=== PATIENT | male | born 1970 | race Caucasian/White ===

== ENCOUNTER 2020-11-25 17:59 | Emergency (ER) | payer OTHER, SELFPAY ==
--- NOTE | ~2020-11-25 | XR_ITS ---
EXAMINATION: XR chest 1V portable INDICATION: Shortness of breath and congestion, loss of taste and smell TECHNIQUE: Portable AP chest at 1949 hours COMPARISON: None available FINDINGS: There are patchy opacities throughout all lung zones, worst in the right mid and lower lung zones. There is no pleural effusion or pneumothorax. The cardiomediastinal silhouette is normal. The re is mild osteoarthritis of the left glenohumeral joint. IMPRESSION: 1. Patchy bilateral airspace opacities, consistent with COVID 19 pneumonia. Reviewed, dictated and finalized at location A.
[2020-11-25 18:01] VITALS: BP 189/85; PULSE 107; RESP 20; TEMP 36.3; O2SAT 97
[2020-11-25 19:34] VITALS: BP 125/89; PULSE 108; RESP 18; TEMP 36.7; O2SAT 99
--- NOTE | 2020-11-25 19:48 | ED.URI ---
HPI - URI/Sore Throat General Chief Complaint: Upper Respiratory Infection Stated Complaint: chest congestion/lack of energy/chills Time Seen by Provider: 11/25/20 19:34 Source: RN notes reviewed History of Present Illness HPI Narrative: Patient presents to emergency department from home for upper respiratory infection. Patient states symptoms began 2 days ago states he has been having a cough this been productive of green sputum as well as rhinorrhea and generalized fatigue patient states he also lost his sense of smell and taste yesterday. Patient's tested positive for Covid 2 days ago patient denies any known fevers chest pain shortness of breath abdominal pain vomiting or diarrhea. He does note occasional nausea Related Data Allergies Allergy/AdvReac Type Severity Reaction Status Date / Time NFA Allergy Unknown Uncoded 02/09/03 14:55 NKA Allergy Unknown Uncoded 02/09/03 14:55 Review of Systems Review of Systems: Narrative: Gen.: Denies fevers or chills Eyes: Denies eye pain or visual change ENT: See HPI Respiratory: Denies shortness of breath reports cough CV: Denies chest pain or palpitations GI: Denies abdominal pain nausea, emesis or diarrhea Musculoskeletal: Denies back pain or muscle pain Neuro: Denies headache, reports fatigue Skin: Denies rash Except as documented, all other systems reviewed and negative PMFSH Past Medical History Medical History (Updated 11/25/20 @ 20:14 by Mal Valenzuela DO) Diabetes mellitus Hypertension Social History Social History (Updated 11/25/20 @ 19:49 by Mal Valenzuela DO) Smoking status: Former smoker Gender identity (if verbalized by the patient): Male Exam Narrative: Exam Narrative: APPEARANCE: No acute distress, nontoxic, resting in bed EYES: EOMI HEENT: Normocephalic, atraumatic, OMM RESPIRATORY: No respiratory distress Clear to auscultation bilaterally with no rhonchi wheezing or rales. CARDIOVASCULAR: Regular rate and rhythm without murmurs rubs or gallops. ABDOMINAL: Soft, nontender, nondistended, no rebound or guarding MUSCULOSKELETAl: Moves all extremities. No clubbing, cyanosis or edema. NEURO: Awake and alert x 4. Following commands, speech normal, no focal deficits SKIN:: Warm, dry. No rashes lesions or abrasions PSYCHIATRIC: Normal affect/mood, Course Course Emergency Course: Discussed with patient results of workup and diagnosis. Discussed need for follow-up with primary care, proper use of medication, and reasons to return to the emergency department. Patient understands and agrees to current treatment plan Vital Signs Vital signs: Vital Signs Temperature 97.4 F L 11/25/20 18:01 Pulse Rate 107 H 11/25/20 18:01 Respiratory Rate 20 11/25/20 18:01 Blood Pressure 189/85 H 11/25/20 18:01 Pulse Oximetry 97 11/25/20 18:01 Temperature 98.1 F 11/25/20 19:34 Pulse Rate 108 H 11/25/20 19:34 Respiratory Rate 18 11/25/20 19:34 Blood Pressure 125/89 11/25/20 19:34 Pulse Oximetry 99 11/25/20 19:34 MDM - URI/Sore Throat MDM Narrative Medical decision making narrative: Patient presents with symptoms consistent with Covid with loss of taste and smell cough. tested +2 days ago. Patient hemodynamically stable oxygen levels 9799% on vital signs on room air patient given albuterol inhaler in ED showed to use will obtain Covid swab and discharge Imaging Data Radiologist's impression: ITS Impressions Chest X-Ray 11/25/20 19:58 IMPRESSION: 1. Patchy bilateral airspace opacities, consistent with COVID 19 pneumonia. Discharge Plan Discharge Clinical Impression: Suspected COVID-19 virus infection Patient Disposition: Home, Self-Care Condition: Stable Instructions: Antibiotic Form, COVID-19 (Coronavirus Disease 2019) (ED) Additional Instructions: Return for increasing shortness of breath worsening fevers vomiting or any other symptoms of concern Prescriptions: New albuterol
[2020-11-25] MEDS: ALBUTEROL SULFATE (*SP) AEROSOL 1 PUFF 2 PUFF INHALATION (19:58)
[2020-11-25] MEDS: ACETAMINOPHEN 500 MG TABLET 1000 MG PO (20:31)
[2020-11-26 11:54] LABS: SARS-CoV-2 RNA PCR Positive
== END 2020-11-25 20:32 | disposition home or self-care (01) ==
PROVIDERS: Emergency Provider Emergency Medicine; PCP Internal Medicine
DX: U07.1 COVID-19 (principal); E11.9 Type 2 diabetes mellitus without complications; I10 Essential (primary) hypertension; R91.8 Other nonspecific abnormal finding of lung field
CPT/HCPCS: 71045; 94640; 99283; A9270; C9803; U0003; U0005

== ENCOUNTER 2022-10-23 13:49 | Outpatient (CLI) | payer OTHER, SELFPAY ==
--- NOTE | ~2022-10-23 | XR_ITS ---
XR chest 2V DATE: 10/23/2022 14:12 INDICATION: Follow-up after surgery for lung cancer TECHNIQUE: PA and lateral views COMPARISON: November 25, 2020 portable AP chest FINDINGS: There is loss of the right cardiac margin due to prominent opacity at the right cardiophren ic area on the PA view, which may be due to middle lobe atelectasis or consolidation versus postopera tive change. CT thorax may be helpful for more definitive evaluation. There is mild blunting of the right costophrenic angle and mild right pleural thickening. There is mild infiltrate or atelectasis in the right lower lung. The left lung appears clear. Normal heart size. No pulmonary vascular congestion, left pleural effusion or left or right pneumotho rax. IMPRESSION: Middle lobe atelectasis and/or consolidation versus postoperative change Mild blunting of right costophrenic angle Mild right lower lung infiltrate and/atelectasis Reviewed, dictated and finalized at location L. MORSE INTERCEPT TECHNICIAN IMPRESSION: Middle lobe atelectasis and/or consolidation versus postoperative c hange Mild blunting of right costophrenic angle Mild right lower lung infiltrate and/atelectasis
== END 2022-10-23 13:50 | disposition home or self-care (01) ==
LOC: ANHIMG 13:55
PROVIDERS: PCP Internal Medicine
DX: J93.9 Pneumothorax, unspecified (principal); J98.11 Atelectasis; R91.8 Other nonspecific abnormal finding of lung field
CPT/HCPCS: 71046

== ENCOUNTER 2022-11-19 10:04 | Outpatient (CLI) | payer OTHER, SELFPAY ==
--- NOTE | ~2022-11-19 | CT_ITS ---
EXAMINATION: CT diagnostic chest w con DATE: 11/19/2022 10:31 INDICATION: Non-small cell lung cancer TECHNIQUE: Transaxial computed tomographic images of the chest were obtained after the administration of 75 cc of Omnipaque 350 intravenous contrast. The dose-length product (DLP) was 532.76 mGy-cm. Ite rative reconstruction was used. COMPARISON: None FINDINGS: There are changes of partial pneumonectomy in the right lung. There is a small to moderate- sized right pleural effusion which causes mild passive atelectasis. There is moderate emphysema. Calc ified pulmonary nodules and calcified right hilar lymph nodes are consistent with old granulomatous d isease. A right paratracheal lymph node measures up to 12 mm in short axis. The heart size is normal. There is moderate thoracic spondylosis. IMPRESSION: 1. Changes of right partial pneumonectomy. 2. Small to moderate size right pleural effusion with minimal associated passive atelectasis. 3. Mildly enlarged right paratracheal lymph node, reactive versus metastatic. Recommend comparison wi th any prior imaging. Consider PET/CT. Reviewed, dictated and finalized at location B. IMPRESSION: 1. Changes of right partial pneumonectomy. 2. Small to moderate size right pleural effusion with minimal associated passiv e atelectasis. 3. Mildly enlarged right paratracheal lymph node, reactive versus metastatic. R ecommend comparison with any prior imaging. Consider PET/CT.
[2022-11-19 10:27] LABS: Estimated Glomerular Filt Rate > 60
== END 2022-11-19 10:05 | disposition home or self-care (01) ==
LOC: ANHIMG 10:06
PROVIDERS: PCP Internal Medicine
DX: C34.31 Malignant neoplasm of lower lobe, right bronchus or lung (principal); J90 Pleural effusion, not elsewhere classified
CPT/HCPCS: 71260; Q9967

== ENCOUNTER 2023-09-03 08:55 | Outpatient (CLI) | payer OTHER, SELFPAY ==
--- NOTE | ~2023-09-03 | PE_ITS ---
EXAMINATION: PET skull to mid thigh DATE: 09/03/2023 11:35 INDICATION: Malignant neoplasm of lower right lung. TECHNIQUE: Blood glucose level was 156 mg/dL. 9.117 mCi of 18-fluorodeoxyglucose (18-FDG) was adminis tered i.v. Low dose computed tomography (CT) images were acquired from the base of the brain to the p roximal thighs for attenuation correction and anatomic localization. Automated exposure control was e mployed. Dose-length product (DLP) was 1279 mGy-cm. Positron emission tomography (PET) images were ac quired in the same distribution. COMPARISON: Chest CT 11/19/2022 FINDINGS: Head/neck: There are likely changes of ocular lens replacement surgeries. There is mucosal thickening in the paranasal sinuses. There is complete opacification of right maxillary sinus. The mastoid air cells are normal. There are no pathologically enlarged lymph nodes. Chest: There are changes of right lower lobectomy. A calcified right lung nodule and calcified right hilar lymph nodes are consistent with old granulomatous disease. There is mild atelectasis bilaterall y. There is a small right pleural effusion. The heart size is normal. There are coronary artery calci fications. No pericardial effusion. There are no pathologically enlarged lymph nodes. Abdomen/pelvis/proximal thighs: The liver, gallbladder, spleen, pancreas, adrenal glands, and kidneys are normal. Aortic atherosclerosis is noted. There are bilateral inguinal hernias containing fat. Th e prostate is mildly enlarged. There are no dilated loops of bowel. There are no pathologically enlar ged lymph nodes. There is no free intraperitoneal fluid. There is a supraumbilical ventral hernia con taining fat. There is no osseous malignancy. IMPRESSION: 1. No evidence of metastatic disease. 2. Small right pleural effusion with improvement from 11/19/2022. Reviewed, dictated and finalized at location E. PROOF DOOR MAKER
[2023-09-03 09:25] LABS: Glucose Point of Care 156 mg/dl (65-105)
== END 2023-09-03 08:56 | disposition home or self-care (01) ==
LOC: ANHIMG 09:00
PROVIDERS: PCP Internal Medicine; Visit Provider Internal Medicine Hematology & Oncology
DX: C34.31 Malignant neoplasm of lower lobe, right bronchus or lung (principal); J90 Pleural effusion, not elsewhere classified
CPT/HCPCS: 78815; A9552

== ENCOUNTER 2023-09-17 11:07 | Outpatient (CLI) | payer OTHER, SELFPAY ==
[2023-09-17 11:24] LABS: Basophils Absolute Auto 0.1 K/mm3 (0.0-0.1); Basophils Percent Auto 0.7 % (0.2-1.2); Eosinophils Absolute Auto 0.2 K/mm3 (0-0.3); Eosinophils Percent Auto 2.5 % (0-4.4); Hemoglobin 14.9 g/dL (14.0-18.0); Immature Granulocyte Absolute 0.02 K/mm3 (0.00-0.031); Immature Granulocyte Percent A 0.3 % (0-0.5); Mean Corpuscular HGB Conc 32.4 g/dl (32-36); Mean Corpuscular Hemoglobin 27.9 pg (26-34); Mean Corpuscular Volume 86.1 fl (80-100); Mean Platelet Volume 7.8 fl (7.4-10.4); Monocytes Absolute Auto 0.7 K/mm3 (0.1-0.6); Monocytes Percent Auto 9.1 % (2.6-8.5); Neutrophils Absolute Auto 4.7 K/mm3 (1.3-6.7); Neutrophils Percent Auto 61.4 % (45.5-73.1); Platelet Count Result 182 k/mm3 (150-375); Red Blood Count 5.34 M/mm3 (4.6-6.20); Red Cell Distribution Width 14.7 % (11.5-14.5); White Blood Count 7.7 K/mm3 (4.5-10.0)
[2023-09-17 11:28] LABS: Blood Urea Nitrogen 30 mg/dL (8-26); Carbon Dioxide 29 mmol/L (22-30); Chloride 103 mmol/L (98-109); Estimated Glomerular Filt Rate 53; Glucose 186 mg/dL (70-105); Potassium 4.2 mmol/L (3.5-4.9); Sodium 140 mmol/L (138-146)
== END 2023-09-17 11:08 | disposition home or self-care (01) ==
LOC: ANHLAB 11:09
PROVIDERS: PCP Internal Medicine; Visit Provider Internal Medicine Hematology & Oncology
DX: C34.31 Malignant neoplasm of lower lobe, right bronchus or lung (principal)
CPT/HCPCS: 36415; 80047; 85025

== ENCOUNTER 2025-03-04 11:16 | Emergency (ER) | payer BC, SELFPAY ==
--- NOTE | ~2025-03-04 | CT_ITS ---
CTA chest PE protocol Ordering provider: Jasmin Miller PA-C History: 54 years Male with . cough x2mo, hemoptysis, sob . Comparison: December 16, 2022 Technique: CT angiogram chest was performed following timed intravenous injection of contrast. Thin s lice axial images and reformatted coronal images were obtained. Three dimensional reformatted images of the chest were also obtained using a [employer] workstation. . Automated exposure control and iterati ve reconstruction technique were employed. The dose-length product was 591.10 mGy-cm. 100 mL Omnipaqu e 350 was given IV. Findings: PULMONARY ARTERIES: No pulmonary embolus. VISUALIZED THORACIC INLET: Normal. MEDIASTINUM: Aorta/coronary arteries: Mild atheromatous disease. Heart/other: The heart is not enlarged. Lymph nodes: Paratracheal lymph node is seen measuring 1.6 cm. Precarinal lymph node is seen measurin g 1.5 cm. Right hilar lymphadenopathy is noted measuring 3.1 cm with calcifications. Narrowing of the right shannon n bronchus and bronchus of the right lower lobe is noted. A mass is seen in the right infrahilar area which measures 3.3 cm seen. Subcarinal mass is also seen suggestive of lymphadenopathy measuring 4.3 x 3.2 cm with no differentiation from the esophageal wall seen. Minimal dilatation of the upper esophagus is noted. Further evaluation advised.. Small lymph n ode is seen in the left hilum. LUNGS: No pulmonary nodules or masses. No infiltrates or effusions. No pneumothorax. Pleural calcification s een in the right lower lobe area laterally. Pleural thickening is seen in the right lower lobe area. VISUALIZED UPPER ABDOMEN: Sliding hiatus hernia. Otherwise, the visualized upper abdomen is normal. MUSCULOSKELETAL: Soft tissues: The superficial soft tissues are normal. Bones: Age appropriate degenerative changes of the spine. IMPRESSION: 1. A mass is seen in the right hilar and infrahilar areas with extension to the subcarinal area whic h may be lymphadenopathy with adjacent mass in the right lower lobe medially. Further evaluation advi sed. Calcification in the right perihilar area is seen. The subcarinal mass is compressing the esopha sergio with slight dilatation superiorly. Further evaluation advised. 2. No pulmonary embolism. 3. No acute lung lesion seen. Reviewed, dictated and finalized at location A. IMPRESSION: 1. A mass is seen in the right hilar and infrahilar areas with extension to th e subcarinal area which may be lymphadenopathy with adjacent mass in the right lower lobe medially. Further evaluation advised. Calcification in the right per ihilar area is seen. The subcarinal mass is compressing the esophagus with slig ht dilatation superiorly. Further evaluation advised. 2. No pulmonary embolism. 3. No acute lung lesion seen.
[2025-03-04 11:20] VITALS: BP 154/85; PULSE 87; RESP 18; TEMP 36.6; O2SAT 98
--- OUTSIDE RECORDS SUMMARY | 2025-03-04 11:28 | XMS_ITS ---
Author Organization [facility] Address [address] [place] [address] Care Team Providers Care Chronometer Assembler Name Role Phone Magda Chan MD Primary Care Provide r Urile Black MD Unavailable [phone] Active Problems Problem Noted Date Diagnosed Date Non-small cell cancer of right lung 2022 Cancer Staging:Clinical stage from 2022:Stage IIB(cT3, cN0, cM0) - Signed by Uriel Black MD on 2022 Lung mass 06/22/2022 Current Treatment and Therapy Plans No current plan information found. Past Treatment and Therapy Plans No past plan information found. Lifetime Dose Tracking * Chemical Lifetime Dose Automatic Entry Manual Entr y DLP 646 mGycm 646 mGycm 0 mGycm
--- OUTSIDE RECORDS SUMMARY | 2025-03-04 11:28 | XMS_ITS | Clinical Summary ---
Author Organization [facility] Address [address] [place] [address] Care Team Providers Care Appeals Court Associate Justice Name Role Phone Magda Chan MD Primary Care Provide r Uriel Black MD Unavailable [phone] Allergies No known active allergies Medications gabapentin (NEURONTIN) 600 mg tablet gabapentin 600 mg tablet 0 Active lisinopriL (PRINIVIL,ZESTR IL) 20 mg tablet lisinopril 20 mg tablet 0 Active semaglutide (Ozempic) 0.25 mg or 0.5 mg(2 mg/1.5 mL) pen injector injection Inject 0.5 mg under the skin once a week Active dapagliflozin (FARXIGA) 10 mg tablet Take 1 tablet (10 mg total) by mouth daily Active insulin degludec (TRESIBA) 200 unit/mL (3 mL) pen for injection daily Active metFORMIN XR (GLUCOPHAGE XR) 500 mg 24 hr tablet 2 Active cetirizine (ZyrTEC) 10 mg tablet Take 1 tablet every day by oral route as needed for 90 days. 4 Active Diflucan 150 mg tablet Take 1 tablet every week by oral route. 5 Active fluticasone propion-salmete roL (Advair Diskus) 500-50 mcg/dose diskus inhaler 2 Active fluticasone propionate (FLONASE) 50 mcg/actuation nasal spray Beatty 2 sprays every day by intranasal route for 90 days. 4 Active fluticasone-ume clidin-vilanter (TRELEGY ELLIPTA) 100-62.5-25 mcg inhaler Inhale 1 puff every day by inhalation route as directed for 30 days. 3 Active zolpidem (AMBIEN) 10 mg tablet Take 1 tablet every day by oral route for 30 days. Active linaCLOtide (Linzess) 290 mcg capsule Take 1 capsule every day by oral route for 30 days. Active Active Problems Problem Noted Date Diagnosed Date Non-small cell cancer of right lung 2022 Cancer Staging:Clinical stage from 2022:Stage IIB(cT3, cN0, cM0) - Signed by Uriel Black MD on 2022 Lung mass 06/22/2022 Surgical History Surgery Date Site/Laterality Comments ULNAR NERVE REPAIR KNEE ARTHROSCOPY Left SHOULDER SURGERY Fixation EYE SURGERY CATARACT EXTRACTION 08/19/2016 - 08/18/2017 Bilateral LUNG REMOVAL, PARTIAL 10/20/2020 patient states Medical History Medical History Date Comments Diabetes (HCC) Obesity Depressive disorder Insomnia Neuropathy Hypertension Asthma Abdominal hernia Sleep apnea ZHU (dyspnea on exertion) Anxiety Migraines COPD (chronic obstructive pulmonary disease) (HC C) Non-small cell cancer of right lung (HCC) 023 Family History Medical History Relation Name Comments Breast cancer Father Lung cancer Father myocardial disease Father Breast cancer Mother Diabetes Mother Diabetes mellitus Mother Heart disease Mother disorder of lung Mother Diabetes Sister Relation Name Status Comments Father Mother Sister Social History Tobacco Use Types Packs/Day Years Used Date Smoking Tobacco: Former Cigarettes 2 32 1 988 - 2019 Smokeless Tobacco: Current Tobacco Cessation:Ready to Q uit: Not Asked; Counseling Given: Not Answered Comments:Niotine on demand AUDIT-C Answer Date Recorded Q1: How often do you have a drink containing alc ohol? Monthly or less 07/24/2022 Q2: How many drinks containi ng alcohol do you have on a typical day when you are drinking? 5 or 6 07/24/2022 Q3: How often do you have si x or more drinks on one occasion? Monthly 07/24/2022 Sex and Gender Information Value Date Recorded Sex Assigned at Not on file Legal Sex Male 11:08 AM MONITORING MANAGER Gender Identity Not on file Sexual Orientation Not on file Obstetrics History Last Filed Vital Signs Vital Sign Reading Time Taken Comments Blood Pressure 122/58 09/22/2024 3:25 PM MONITORING MANAGER Pulse 103 09/22/2024 3:25 PM MONITORING MANAGER Temperature 36.7 C (98.1 F) 08/06/2022 11:23 AM MONITORING MANAGER Respiratory Rate 18 08/06/2022 11:23 AM MONITORING MANAGER Oxygen Saturation 96% 08/06/2022 11:23 AM MONITORING MANAGER Inhaled Oxygen Concentration - - Weight 95.3 kg (210 lb) 09/22/2024 3:25 PM MONITORING MANAGER Height 172.7 cm (5' 8) 08/06/2022 11:23 AM MONITORING MANAGER Body Mass Index 31.93 08/06/2022 11:23 AM MONITORING MANAGER Plan of Treatment Health Maintenance Due Date Last Done Comments Colon Cancer Screening-Colonoscopy 1971 Depression Screening 1971 Hepatitis C Screening 1971 Prostate Cancer Screening-PSA 1971 DTaP/Tdap/Td Vaccine (1 - Tdap) 1982 Hepatitis B Screening 1989 Regular Well Visit/Exam 18-64 1989 Pneumococcal vaccine <65 (1 of 2 - PCV) 1990 Zoster Vaccine (2 of 2) 10/17/2023 08/22/2023 Covid-19 Vaccine (3 - 2023-2 5 season) 2024 05/26/2021, 05/05/2021 Influenza Vaccine (Season Ended) 2025 08/06/2023, 06/12/2022, 06/13/2021, Additional history exists Insurance [facility] H[facility]PPO Address: [address] [address] [place] [address] BLUE ACCESS OOS Care Teams Appeals Court Associate Justice Relationship Specialty Start Date End Date Magda Chan MD [address] [place] [address] PCP - General Internal Medicine 06/13/22 Uriel Black MD [address] [place] [address] Radiation Oncologist Radiation Oncology 09/13/22
--- OUTSIDE RECORDS SUMMARY | 2025-03-04 11:28 | XMS_ITS | Clinical Summary ---
Author Organization [facility] Jerson Martinez Address [address] [place] [address] Care Team Providers Care Morgue Keeper Name Role Phone Charlette Chan MD Primary Care Provider Allergies No known active allergies Medications albuterol sulfate HFA 90 mcg/actuation aerosol inhaler 1 time daily as needed. 08/28/2022 Active amitriptyline (ELAVIL) 10 mg tablet 06/27/2022 Active amLODIPine (NORVASC) 5 mg tablet 06/27/2022 Active Farxiga 10 mg Tablet 07/17/2022 Active Advair Diskus 500-50 mcg/dose disk inhaler 06/27/2022 Active Trelegy Ellipta 100-62.5-25 mcg Disk with Device 08/28/2022 Active gabapentin (NEURONTIN) 600 mg tablet 3 times daily. 08/28/2022 Active lisinopriL (PRINIVIL) 20 mg tablet 2 times daily. 07/27/2022 Active metFORMIN (GLUCOPHAGE XR) 500 mg Extended Release 24 hour tablet 2 times daily with meals. 07/17/2022 Active Ozempic 0.25 mg or 0.5 mg(2 mg/1.5 mL) Pen Injector every 7 days. Saturday08/14/2022 Active insulin degludec (TRESIBA) 200 unit/mL pen syringe 44 Units daily at bedtime. Active glimepiride (AMARYL) 2 mg tablet 2 times daily with meals. Below BS 117, only take one tablet 07/17/2022 Active Active Problems Problem Noted Date Diagnosed Date Benign hypertension 09/12/2022 Cancer of lower lobe of right lung 09/12/2022 Type 2 diabetes mellitus wit hout complication, with long-term current use of insulin 09/12/2022 Encounters Date Type Department Care Team Description 03/02/2025 External Device Data [facility] ABSTRACTION Provider, Abstract 02/02/2025 External Device Data [facility] ABSTRACTION Provider, Abstract 01/07/2025 External Device Data [facility] ABSTRACTION Provider, Abstract 01/05/2025 External Device Data [facility] ABSTRACTION Provider, Abstract from Last 3 Months Family History Medical History Relation Name Comments Diabetes Father Heart Disease Father Lung Cancer Father Diabetes Mother Heart Disease Mother Diabetes Sister Diabetes Son Relation Name Status Comments Father Mother Sister Alive Son Alive Social History Tobacco Use Types Packs/Day Years Used Date Smoking Tobacco: Former Cigarettes 2 30 0 08/19/1991 - 08/19/2021 Smokeless Tobacco: Never Tobacco Cessation:Counseling Given: Not Answered Alcohol Use Standard Drinks/Week Comments Yes 0 (1 standard drink = 0.6 oz pur e alcohol) socially - few times a year Sex and Gender Information Value Date Recorded Sex Assigned at Not on file Legal Sex Male 8:18 AM AGRICULTURAL EQUIPMENT SALES ENGINEER Gender Identity Not on file Sexual Orientation Not on file Last Filed Vital Signs Vital Sign Reading Time Taken Comments Blood Pressure 129/74 09/17/2023 11:28 AM AGRICULTURAL EQUIPMENT SALES ENGINEER Pulse 92 09/17/2023 11:28 AM AGRICULTURAL EQUIPMENT SALES ENGINEER Temperature 36.2 C (97.1 F) 09/17/2023 11:28 AM AGRICULTURAL EQUIPMENT SALES ENGINEER Respiratory Rate 12 09/17/2023 11:28 AM AGRICULTURAL EQUIPMENT SALES ENGINEER Oxygen Saturation 95% 09/17/2023 11:28 AM AGRICULTURAL EQUIPMENT SALES ENGINEER Inhaled Oxygen Concentration - - Weight 110.7 kg (244 lb) 09/17/2023 11:28 AM AGRICULTURAL EQUIPMENT SALES ENGINEER Height 177.8 cm (5' 10) 11/21/2022 10:27 AM CDT Body Mass Index 35.01 11/21/2022 10:27 AM CDT Plan of Treatment Health Maintenance Due Date Last Done Comments DIABETES ANNUAL FOOT EXAM 1989 DIABETES ANNUAL RETINAL EXAM 1989 DIABETES MICROALBUMIN ANNUAL SCREEN 1989 LDL CHOLESTEROL ANNUAL 1989 DTAP/TDAP/TD VACCINES (1 - Tdap) 1990 HEPATITIS B VACCINES (1 of 3 - 19+ 3-dose series) 1990 COLORECTAL SCREENING 2016 Colorectal Cancer Screening 2016 FIT-DNA Q 3 years 2016 FIT/FOBT Q 1 year 2016 Flex Sig/CT Colonography Q 5 years 2016 ZOSTER VACCINE (1 of 2) 2021 DIABETES HBA1C Q 6 MONTHS 03/31/2023 10/01/2022 INFLUENZA VACCINE (#1) 2025 3, 06/12/2022, 06/13/2021, Additional history exists Medical Devices Implanted Type Area Die Turner Device Identifier Shelf Expiration Date Model / Serial / Lot Clip Hemolok Ml [id number] - Csc - [id number] Implanted:Qty : 1 on 10/18/2022 by Winston Villalpando MD at [facility] Clip Right: Lung TELEFLEX- WECK CLOSURE SYS 06/18/2026 [id number] / / [id number] Sealant Progel Pleural 4ml [id number] - [id number] Implanted:Qty : 1 on 10/18/2022 by Winston Villalpando MD at [facility] Tissue Right: Lung BARD DAVOL [id number] 12/04/2023 [id number] / / [id number] Procedures Procedure Name Priority Date/Time Associated Diagnosis Comments HEMOGLOBIN A1C Routine 10/01/2022 12:33 PM AGRICULTURAL EQUIPMENT SALES ENGINEER Benign hypertension Cancer of lower lobe of right lung (CMS/HCC) Type 2 diabetes mellitus without complication, with long-term current use of insulin (CMS/HCC) from Last 3 Months or Most Recently Relevant to Health Maintenance Results * (ABNORMAL) HEMOGLOBIN A1C (10/01/2022 12:33 PM AGRICULTURAL EQUIPMENT SALES ENGINEER) HEMOGLOBIN A1C 6.8(H) <5.7 % 10/01/2022 2:13 PM [facility] EST. AVG GLUCOSE, A1C 148 mg/dL 10/01/2022 2:13 PM [facility] Blood Venipuncture / Unknown 10/01/2022 12:33 PM AGRICULTURAL EQUIPMENT SALES ENGINEER 10/01/2022 1:45 PM AGRICULTURAL EQUIPMENT SALES ENGINEER Narrative [facility] - 10/01/2022 2:13 PM AGRICULTURAL EQUIPMENT SALES ENGINEER HGB A1C INTERPRETATION NORMAL: <5.7% PRE-DIABETES: 5.7 - 6.4% DIABETES: 6.5% OR GREATER Winston Villalpando MD CHEMISTRY ORDERABLES Final Res ult [facility]# [id number] [address] [place] [address] from Last 3 Months or Most Recently Relevant to Health Maintenance Insurance RX [employer] Member Subscriber Plan / Payer (Ef fective for All Dates) Name:Anthony Bonilla Relation to Subscriber:Self Name:Anthony Bonilla Subscriber ID:Not on file Payer ID:Not on file Group ID:[id number] Type:RX Commercial Address: [address] Advance Directives For more information, please contact: [phone] * Full Code (Latest Code Status on File) Date Activated Date Inactivated Comments 10/18/2022 5:47 PM 10/21/2022 7:26 PM * Full Code Date Activated Date Inactivated Comments 10/18/2022 5:47 AM 10/18/2022 5:47 PM Care Teams Morgue Keeper Relationship Specialty Start Date End Date Charlette Chan MD PCP - General Internal Medicine 08/28/22
--- OUTSIDE RECORDS SUMMARY | 2025-03-04 11:28 | XMS_ITS | Encounter Summary ---
Author Organization [facility] Address [address] [place] [address] Care Team Providers Care Sales Ambassador Name Role Phone Charlette Chan MD Primary Care Provider Encounter Details Date Type Department Care Team (Late st Contact Info) Description 03/02/2025 External Device Data [facility] ABSTRACTION Provider, Abstract NO ADDRESS ON FILE Social History Tobacco Use Types Packs/Day Years Used Date Smoking Tobacco: Former Cigarettes 2 30 0 08/19/1991 - 08/19/2021 Smokeless Tobacco: Never Alcohol Use Standard Drinks/Week Comments Yes 0 (1 standard drink = 0.6 oz pur e alcohol) socially - few times a year Sex and Gender Information Value Date Recorded Sex Assigned at Not on file Legal Sex Male 8:18 AM WEB MARKETING MANAGER Gender Identity Not on file Sexual Orientation Not on file documented as of this encounter Plan of Treatment Not on file documented as of this encounter Visit Diagnoses Not on filedocumented in this encounter Care Teams Sales Ambassador Relationship Specialty Start Date End Date Charlette Chan MD PCP - General Internal Medicine 08/28/22 documented as of this encounter
--- OUTSIDE RECORDS SUMMARY | 2025-03-04 11:28 | XMS_ITS | Referral Summary ---
Author Organization [facility] Address [address] [place] [address] Care Team Providers Care Outsole Skiver Name Role Phone Magda Chan MD Primary Care Provide r Uriel Black MD Unavailable [phone] Allergies No known active allergies Medications [...] fluticasone propionate (FLONASE) 50 mcg/actuation nasal spray Brooks 2 sprays every day by intranasal route [...] Black MD on 2022 Lung mass 06/22/2022 Social History Tobacco Use Types Packs/Day Years Used Date Smoking Tobacco: Former Cigarettes 2 32 1 8 - 2019 Smokeless Tobacco: Current Tobacco Cessation:Ready [...] on file Legal Sex Male 11:08 AM FIRE EXTINGUISHER TECHNICIAN Gender Identity Not on file Sexual Orientation Not on file Last Filed Vital Signs Vital Sign Reading Time Taken Comments Blood Pressure 122/58 09/22/2024 3:25 PM FIRE EXTINGUISHER TECHNICIAN Pulse 103 09/22/2024 3:25 PM FIRE EXTINGUISHER TECHNICIAN Temperature 36.7 C (98.1 F) 08/06/2022 11:23 AM FIRE EXTINGUISHER TECHNICIAN Respiratory Rate 18 08/06/2022 11:23 AM FIRE EXTINGUISHER TECHNICIAN Oxygen Saturation 96% 08/06/2022 11:23 AM FIRE EXTINGUISHER TECHNICIAN Inhaled Oxygen Concentration - - Weight 95.3 kg (210 lb) 09/22/2024 3:25 PM FIRE EXTINGUISHER TECHNICIAN Height 172.7 cm (5' 8) 08/06/2022 11:23 AM FIRE EXTINGUISHER TECHNICIAN Body Mass Index 31.93 08/06/2022 11:23 AM FIRE EXTINGUISHER TECHNICIAN Plan of Treatment Not on file Insurance [id number] [place] [address] CHOICE PLUS BLUE ACCESS OOS Care Teams Outsole Skiver Relationship Specialty Start Date End Date Magda Chan MD [address] [phone] (Work) PCP - General Internal Medicine 06/13/22 Uriel Black MD [address] [address] Radiation Oncologist Radiation Oncology 09/13/22
--- OUTSIDE RECORDS SUMMARY | 2025-03-04 11:39 | XMS_ITS | Clinical Summary ---
Author Organization [facility] Address [address] [place] [address] Care Team Providers Care Grinder Set Up Operator Jig Name Role Phone Unavailable Primary Care Provider Unavailabl e Social History Tobacco Use Types Packs/Day Years Used Date Smoking Tobacco: Never Assessed Sex and Gender Information Value Date Recorded Sex Assigned at Not on file Legal Sex Male 7:54 PM CDT Gender Identity Not on file Sexual Orientation Not on file Plan of Treatment Health Maintenance Due Date Last Done Comments Colorectal Cancer Screening Colonoscopy (10 Years) 1971 Annual Physical 1974 Hepatitis C 1989 DTaP, Tdap and Td Vaccines ( 1 - Tdap) 1990 Hepatitis B Vaccines (1 of 3 - 19+ 3-dose series) 1990 Pneumococcal Vaccine: 50+ Ye ars (1 of 1 - PCV) 2021 Zoster Vaccines (1 of 2) 2021 COVID-19 Vaccine ( - 2023-2 5 season) 2024 Meningococcal B Vaccine Aged Out No l onger eligible based on patient's age to complete this topic Meningococcal Vaccine Aged Out No wisam case eligible based on patient's age to complete this topic RSV Immunizations Under 20 Months Aged Out No longer eligible based on patient's age to complete this topic
[2025-03-04 12:08] VITALS: O2SAT 98
[2025-03-04 12:13] LABS: Hematocrit 42.5 % (42.0-52.0); Hemoglobin 13.9 g/dL (14.0-18.0); Immature Granulocyte Percent A 0.1 % (0-0.5); Lymphocytes Absolute Auto 1.91 K/mm3 (0.9-3.2); Mean Corpuscular HGB Conc 32.7 g/dl (32-36); Mean Corpuscular Hemoglobin 28.1 pg (26-34); Mean Corpuscular Volume 85.9 fl (80-100); Nucleated Red Blood Cells Absolute Auto 0.000 K/mm3 (0.0-0.012); Nucleated Red Blood Cells Perc 0.0 % (0.0-0.2); Platelet Count Result 181 k/mm3 (150-375); Red Blood Count 4.95 M/mm3 (4.6-6.20); White Blood Count 9.5 K/mm3 (4.5-10.0)
[2025-03-04 12:16] VITALS: BP 126/69; PULSE 79; RESP 20; O2SAT 93
[2025-03-04 12:23] LABS: INR 1.0; Prothrombin Time 13.1 Seconds (11.1-14.7)
[2025-03-04 12:24] LABS: Partial Thromboplastin Time 29.3 Seconds (22.3-36.8)
[2025-03-04 12:31] VITALS: BP 125/71; PULSE 77; RESP 18; O2SAT 92
[2025-03-04 12:35] LABS: Alanine Aminotransferase 12 U/L (6-50); Albumin Level 4.1 g/dL (3.5-5.1); Alkaline Phosphatase 65 U/L (38-126); Anion Gap 8 mmol/L (4-12); Aspartate Amino Transferase 23 U/L (17-59); Bilirubin,Total 0.6 mg/dL (0.2-1.3); Blood Urea Nitrogen 15 mg/dL (9-20); Calcium 9.0 mg/dL (8.4-10.2); Carbon Dioxide 27 mmol/L (22-30); Chloride 103 mmol/L (98-107); Estimated CRCL calculation 99 ml/min; Estimated Glomerular Filt Rate > 60; Glucose 87 mg/dL (65-110); Potassium 4.2 mmol/L (3.4-5.0); Sodium 138 mmol/L (137-145); Total Protein 6.9 g/dL (6.3-8.2)
[2025-03-04 12:46] LABS: Troponin I < 0.012 ng/mL (0.000-0.034)
[2025-03-04 12:50] LABS: Influenza A QL RT-PCR Negative (Negative); Influenza B QL RT-PCR Negative (Negative); RSV RNA, RT-PCR Negative (Negative); SARS-CoV-2 RNA PCR Negative (Negative)
[2025-03-04 12:59] VITALS: PULSE 82; RESP 14; O2SAT 97
--- NOTE | 2025-03-04 13:32 | ED_ITS ---
HPI - URI/Sore Throat General Chief Complaint: Upper Respiratory Infection Stated Complaint: cough, runny nose, [id number]- 3-4 days cough blood Time Seen by Provider: 03/04/25 11:24 Source: patient Mode of arrival: ambulatory Limitations: no limitations History of Present Illness HPI Narrative: Patient is a 54 y/o male, with PMH of DM, HTN, Stage 2 lung CA s/p R lower lobectomy 2 years ago, who presents to the ED with c/o coughing blood. Patient reports he has had intermittent cough, congestion, rhinorrhea, sinus drainage for the past 2 months. States it is worse in the mornings and at night, but typically he feels okay throughout the day. Does not feel significantly ill otherwise. States over the last 3-4 days, he has been having bright red blood mixed in with his sputum. Also reports pain throughout his R lower ribs with coughing/movement. He contacted his primary care doctor today and was referred to the ED for further evaluation. Patient has been feeling mildly short of breath, denies CP, fevers. Denies hx of blood clots. He is not on any anticoagulation. Related Data Allergies Allergy/AdvReac Type Severity Reaction Status Date / Time No Known Allergies Allergy Verified 03/04/25 11:17 Review of Systems 2 Review of Systems: All systems reviewed & are unremarkable except as noted in HPI. All systems reviewed & are unremarkable except as noted in HPI and below PMFSH Past Medical History Medical History Diabetes mellitus Hypertension Social History Social History Smoking status: Former smoker Gender identity (if verbalized by the patient): Male Exam 2 Narrative: GENERAL: Well appearing, obese with BMI of 32.2, non-toxic, in no acute distress. HEAD: Normocephalic, atraumatic. RESPIRATORY: Airway patent, respirations nonlabored. Slight rhonchi in bases bilaterally. Occ faint wheezing ana rosa CARDIOVASCULAR: Regular rate and rhythm without murmurs, rubs, or gallops. Normal peripheral pulses MUSCULOSKELETAL: Moves all extremities. No gross deformities. No peripheral edema. SKIN: Warm, dry, normal color. NEURO: A&O X3. Speech clear. Cranial nerves II-XII grossly intact. Steady gait. No ataxic movements. PSYCHIATRIC: Appropriate mood and affect. Normal interaction. Course Vital Signs Vital signs: Vital Signs Temperature 97.9 F 03/04/25 11:20 Pulse Rate 87 03/04/25 11:20 Respiratory Rate 18 03/04/25 11:20 Blood Pressure 154/85 H 03/04/25 11:20 Pulse Oximetry 98 03/04/25 11:20 Oxygen Delivery Room Air 03/04/25 11:20 Temperature 97.9 F 03/04/25 11:20 Pulse Rate 72 03/04/25 14:36 Respiratory Rate 20 03/04/25 14:36 Blood Pressure 139/82 03/04/25 14:36 Pulse Oximetry 98 03/04/25 14:36 Oxygen Delivery Room Air 03/04/25 12:08 MDM - URI/Sore Throat MDM Narrative Medical decision making narrative: Patient presented to ED with 2 month history of cough/URI symptoms. Now reporting blood in his sputum over the past 3-4 days. Vital signs are stable upon arrival. Patient is in no acute distress. Oxygen is stable on room air. Laboratory studies are fairly unremarkable. Cbc without leukocytosis or anemia. H&H is stable. Coags are stable. CMP unremarkable. EKG with NSR, no concerning ST changes. Troponin undetectable. Viral swabs are negative. CTA of chest was obtained and w/o evidence of PE or PNA, but unfortunately showing R lung masses in the hilar and infrahilar areas with extension to the subcarinal area. Patient has history of right-sided lung cancer with partial lobectomy 2 years ago. Discussed lab and imaging findings with patient, concern for recurrent CA. Discussed case with Dr. Mcclelland, oncology, advised will place order for PET scan today. Have patient follow-up in office after receiving PET scan. Discussed these recommendations with patient. He is in agreement with plan. I otherwise feel he is safe for discharge home today. He has remained hemodynamically stable throughout ED stay. There was no hypoxia or supplemental oxygen requirement. H&H is stable. Discussed very strict return precautions and patient voiced understanding. Discharged in stable condition. Medical Records Attestation: I reviewed the patient's medical records. Lab Data Attestation: I reviewed the patient's lab results. 03/04/25 12:03 03/04/25 12:03 Labs: Lab Results 03/04/25 03/04/25 Range/Units 11:49 12:03 WBC 9.5 (4.5-10.0) K/mm3 RBC 4.95 (4.6-6.20) M/mm3 Hgb 13.9 L (14.0-18.0) g/dL Hct 42.5 (42.0-52.0) % MCV 85.9 (80-100) fl MCH 28.1 (26-34) pg MCHC 32.7 (32-36) g/dl RDW 13.4 (11.5-14.5) % Plt Count 181 (150-375) k/mm3 MPV 8.2 (7.4-10.4) fl Immature Gran % (Auto) 0.1 (0-0.5) % Neut % (Auto) 66.8 (45.5-73.1) % Lymph % (Auto) 20.1 (18.3-44.2) % Floyd % (Auto) 7.4 (2.6-8.5) % Eos % (Auto) 5.1 H (0-4.4) % Baso % (Auto) 0.5 (0.2-1.2) % Lymph # (Auto) 1.91 (0.9-3.2) K/mm3 Floyd # (Auto) 0.7 H (0.1-0.6) K/mm3 Eos # (Auto) 0.5 H (0-0.3) K/mm3 Baso # (Auto) 0.1 (0.0-0.1) K/mm3 Abs Immat Gran (auto) 0.01 (0.00-0.031) K/mm3 Absolute Neuts (auto) 6.3 (1.3-6.7) K/mm3 Absolute Nucleated RBC 0.000 (0.0-0.012) K/mm3 Nucleated RBC % 0.0 (0.0-0.2) % PT 13.1 (11.1-14.7) Seconds INR 1.0 APTT 29.3 (22.3-36.8) Seconds Sodium 138 (137-145) mmol/L Potassium 4.2 (3.4-5.0) mmol/L Chloride 103 (98-107) mmol/L Carbon Dioxide 27 (22-30) mmol/L Anion Gap 8 (4-12) mmol/L BUN 15 (9-20) mg/dL Creatinine 0.85 (0.7-1.3) mg/dL Estim Creat Clear Calc 99 ml/min Estimated GFR > 60 (59 - ) Glucose 87 (65-110) mg/dL Calcium 9.0 (8.4-10.2) mg/dL Total Bilirubin 0.6 (0.2-1.3) mg/dL AST 23 (17-59) U/L ALT 12 (6-50) U/L Alkaline Phosphatase 65 (38-126) U/L Troponin I < 0.012 (0.000-0.034) ng/mL Total Protein 6.9 (6.3-8.2) g/dL Albumin 4.1 (3.5-5.1) g/dL Influenza A (RT-PCR) Negative (Negative) Influenza B (RT-PCR) Negative (Negative) RSV (RT-PCR) Negative (Negative) SARS-CoV-2 RNA (RT-PCR) Negative (Negative) Imaging Data Attestation: I personally reviewed and interpreted this imaging study as follows: Radiologist's impression: ITS Impressions Chest CTA 03/04/25 13:29 IMPRESSION: 1. A mass is seen in the right hilar and infrahilar areas with extension to the subcarinal area which may be lymphadenopathy with adjacent mass in the right lower lobe medially. Further evaluation advised. Calcification in the right perihilar area is seen. The subcarinal mass is compressing the esophagus with slight dilatation superiorly. Further evaluation advised. 2. No pulmonary embolism. 3. No acute lung lesion seen. ECG Data EKG #1: Attestation: I personally reviewed and interpreted this ECG as follows: ECG completion date: 03/04/25 ECG completion time: 13:46 EKG Interpretation: normal rate (72), sinus rhythm and no ST changes Discharge Plan Discharge Clinical Impression: Mass of right lung, Cough with hemoptysis Patient Disposition: Home Condition: Stable Instructions: Antibiotic Form, Chronic Cough (ED), Coughing Up Blood (Hemoptysis) (ED) Additional Instructions: You are to follow-up with Dr. Mcclelland for further evaluation of this lung mass. He has ordered a PET scan for you to complete. Call the office today/tomorrow to make follow up appointment with Dr. Mcclelland after you have the PET scan performed. Continue to monitor symptoms. Return to the ED if you experience worsening or severe bleeding, severe shortness of breath, unable to keep down food or drink, persistent fevers, or any other symptoms of concern. Patient Language: Japanese Prescriptions: No Action albuterol sulfate 90 mcg/actuation HFA aerosol inhaler 2 puff INHALATION QID PRN (Reason: shortness of breath or wheezing) Qty: 6.7 0RF ondansetron 4 mg tablet,disintegrating 4 mg PO Q6H PRN (Reason: nausea and vomiting) Qty: 10 0RF Follow-up/Referrals: Matt Mcclelland MD [Physician] - (ONCOLOGY) [facility],MD Charlette [Primary Care Provider] - Time of Disposition: 14:55
--- NOTE | 2025-03-04 13:40 | ECG_ITS ---
Test Date: 2025-03-04 13:46:01 Measurements Intervals [place] Rate: 72 P: 75 WY: 163 QRS: 70 QRSD: 85 T: 74 QT: 386 QTc: 423 Interpretive Statements SINUS RHYTHM No previous ECG available for comparison Electronically Signed On 03-04-2025 14:50:39 CDT by Enrique Becker M.D.
[2025-03-04 14:36] VITALS: BP 139/82; PULSE 72; RESP 20; O2SAT 98
== END 2025-03-04 15:29 | disposition home or self-care (01) ==
PROVIDERS: Emergency Provider Physician Assistant; PCP Internal Medicine
DX: R91.8 Other nonspecific abnormal finding of lung field (principal); R04.2 Hemoptysis; E11.9 Type 2 diabetes mellitus without complications; I10 Essential (primary) hypertension; Z87.891 Personal history of nicotine dependence; Z20.822 Contact with and (suspected) exposure to COVID-19
CPT/HCPCS: 36415; 71275; 80053; 84484; 85025; 85610; 85730; 87637; 93005; 99284; Q9967

== ENCOUNTER 2025-03-16 11:57 | Outpatient (CLI) | payer BC, SELFPAY ==
--- NOTE | ~2025-03-16 | PE_ITS ---
EXAMINATION: PET skull to mid thigh DATE: 03/16/2025 13:58 INDICATION: Right lower lobe lung cancer TECHNIQUE: Blood glucose level was 82 mg/dL. 10.357 mCi of 18-fluorodeoxyglucose (18-FDG) was adminis tered i.v. Low dose computed tomography (CT) images were acquired from the base of the brain to the p roximal thighs for attenuation correction and anatomic localization. Positron emission tomography (PE T) images were acquired in the same distribution beginning 51 minutes after injection. Images includi ng fused PET/CT images were reconstructed in axial, coronal, and sagittal planes. Automated exposure control technique was employed. The dose-length product was 1194.48 mGy-cm. COMPARISON: PET/CT dated 09/03/[address] dated 03/04/2025 FINDINGS: Head/neck: There is symmetric increased activity in the oral cavity, palatine tonsils, submandibular glands, lar yngeal muscles and ocular muscles without CT correlate, likely physiologic. More asymmetric but still likely physiologic uptake along the bilateral longus capitis muscles, right greater than left. No pa thologically enlarged cervical lymphadenopathy or suspicious foci of increased FDG uptake in the visu alized head or neck. Chest: Moderate emphysema. Postoperative change of prior right thoracotomy between the posterior eighth and ninth ribs and right lower lobectomy with suture line and associated scarring in the right infrahilar region. A couple calcified nodules in the posterior right upper lobe along with calcified right michaela r lymph nodes consistent with old granulomatous disease. Trace right pleural effusion at the posterio r sulcus. No other suspicious pulmonary nodules, pulmonary edema or left pleural effusion. Heart size is normal. Since the prior PET study there has been interval development of enlarged and prominently FDG avid right hilar and subcarinal lymphadenopathy. For reference the subcarinal lymph node measure s 4.7 x 3.1 cm with maximal SUV of 14.5. The right hilar lymph nodes are difficult to distinguish fro m the hilar vasculature on the current noncontrast study but with the larger and more posterior lymph nodes measured 3.3 x 2.4 cm at the time of the contrast enhanced CT from 2 weeks prior and with maxi mal SUV of 16.2. The right hilar lymphadenopathy results in extrinsic compression of the right middle lobe bronchus which is narrowed to 5 5 mm in maximal diameter. Thoracic aorta is normal in caliber. Abdomen/pelvis/proximal thighs: Physiologic renal accumulation and excretion of FDG activity in the kidneys, bladder and along portio ns of ureters. Normal degree and heterogenous pattern of increased uptake throughout the liver withou t radiologic correlate or dominant FDG avid lesion. The gallbladder, pancreas, spleen and bilateral a drenal glands are normal. Mild uptake scattered throughout the bowels without radiologic correlate, a lso likely physiologic. Normal appendix. Small bilateral fat-containing inguinal hernias. There are f ew calcifications along the pubic body insertion of the bilateral rectus abdominis muscles with mild associated FDG uptake with maximal SUV of 4.7 without other radiologic correlate which is most likely related to enthesopathy. There is additional mild uptake also with maximal SUV of 4.7 and without ra diologic correlate along the right ischial tuberosity origin of the proximal hamstring tendons and al so likely enthesopathic in etiology. No other abnormal foci of increased FDG uptake or pathologically enlarged lymphadenopathy in the abdomen, pelvis or proximal thighs. Musculoskeletal: Unchanged sclerotic bone island at the left sacral ala without abnormal FDG uptake. No other suspicio us lytic, blastic or abnormally FDG avid bone lesions to suggest osseous metastatic disease. IMPRESSION: 1. Again seen are postoperative change of prior right lower lobectomy with interval development of si gnificantly enlarged and FDG avid right hilar and subcarinal lymph nodes consistent with metastatic d isease and which compresses the right middle lobe bronchus. 2. No other lesions suspicious for more remote metastatic disease in the neck, chest, abdomen or pelv is. Reviewed, dictated and finalized at location A. IMPRESSION: 1. Again seen are postoperative change of prior right lower lobectomy with inte rval development of significantly enlarged and FDG avid right hilar and subcari nal lymph nodes consistent with metastatic disease and which compresses the rig ht middle lobe bronchus. 2. No other lesions suspicious for more remote metastatic disease in the neck, chest, abdomen or pelvis.
--- OUTSIDE RECORDS SUMMARY | 2025-03-16 12:03 | XMS_ITS ---
Author Organization [facility] Address [address] [place] [address] Care Team Providers Care Oil Burner Installer Name Role Phone Magda Chan MD Primary Care Provide r Uriel Black MD Unavailable [phone] Active Problems Problem Noted Date Diagnosed [...]
--- OUTSIDE RECORDS SUMMARY | 2025-03-16 12:03 | XMS_ITS | Referral Summary ---
Author Organization [facility] Address [address] [place] [address] Care Team Providers Care Test Hole Driller Name Role Phone Magda Chan MD Primary Care Provide r Uriel Black MD Unavailable Allergies No known active allergies Medications gabapentin [...] fluticasone propionate (FLONASE) 50 mcg/actuation nasal spray Add[place] 2 sprays every day by intranasal route [...] on file Legal Sex Male 11:08 AM AUTOMOTIVE MANAGER Gender Identity Not on file Sexual Orientation Not on file Last Filed Vital Signs Vital Sign Reading Time Taken Comments Blood Pressure 122/58 09/22/2024 3:25 PM AUTOMOTIVE MANAGER Pulse 103 09/22/2024 3:25 PM AUTOMOTIVE MANAGER Temperature 36.7 C (98.1 F) 08/06/2022 11:23 AM AUTOMOTIVE MANAGER Respiratory Rate 18 08/06/2022 11:23 AM AUTOMOTIVE MANAGER Oxygen Saturation 96% 08/06/2022 11:23 AM AUTOMOTIVE MANAGER Inhaled Oxygen Concentration - - Weight 95.3 kg (210 lb) 09/22/2024 3:25 PM AUTOMOTIVE MANAGER Height 172.7 cm (5' 8) 08/06/2022 11:23 AM AUTOMOTIVE MANAGER Body Mass Index 31.93 08/06/2022 11:23 AM AUTOMOTIVE MANAGER Plan of Treatment Not on file Insurance [id number] [place] [address] CHOICE PLUS BLUE ACCESS OOS [facility] Address: [address] [place] [address] Care Teams Test Hole Driller Relationship Specialty Start Date End Date Magda Chan MD [address] [phone] (Work) PCP - General Internal Medicine 06/13/22 Uriel Black MD [address] [address] Radiation Oncologist Radiation Oncology 09/13/22
--- OUTSIDE RECORDS SUMMARY | 2025-03-16 12:03 | XMS_ITS | Clinical Summary ---
Author Organization [facility] Address [address] [place] [address] Care Team Providers Care Laundry Technician Name Role Phone Unavailable Primary Care Provider [...]
--- OUTSIDE RECORDS SUMMARY | 2025-03-16 12:03 | XMS_ITS | Clinical Summary ---
Author Organization [facility] Jerson Martinez Address [address] [place] [address] Care Team Providers Care Decision Analyst Name Role Phone Charlette Chan MD Primary [...] Encounters Date Type Department Care Team Description 03/04/[address] [facility] Oncology and Hematology - [address] [place] [phone] Matt Mcclelland MD Malignant neoplasm of lower lobe of right lung (CMS/HCC) (Primary Dx) 03/03/2025 External Device Data STL ABSTRACTION Provider, Abstract 03/02/2025 External Device Data STL ABSTRACTION Provider, [...] on file Legal Sex Male 8:18 AM MACHINE PIE MAKER Gender Identity Not on file Sexual Orientation Not on file Last Filed Vital Signs Vital Sign Reading Time Taken Comments Blood Pressure 129/74 09/17/2023 11:28 AM MACHINE PIE MAKER Pulse 92 09/17/2023 11:28 AM MACHINE PIE MAKER Temperature 36.2 C (97.1 F) 09/17/2023 11:28 AM MACHINE PIE MAKER Respiratory Rate 12 09/17/2023 11:28 AM MACHINE PIE MAKER Oxygen Saturation 95% 09/17/2023 11:28 AM MACHINE PIE MAKER Inhaled Oxygen Concentration - - Weight 110.7 kg (244 lb) 09/17/2023 11:28 AM MACHINE PIE MAKER Height 177.8 cm (5' 10) 11/21/2022 10:27 AM CDT Body Mass Index 35.01 11/21/2022 10:27 AM CDT Plan of Treatment Upcoming Encounters Date Type Department Care Team (Late st Contact Info) Description 03/22/2025 1:00 PM CDT Office Visit [facility] Oncology and Hematology - Fan [address] [facility] [address] [address] [place] [address] Matt Mcclelland MD [address] [facility] [address] [place] [address] Health Maintenance Due Date Last Done Comments [...] history exists Medical Devices Implanted Type Area Instrument Specialist Device Identifier Shelf Expiration Date Model / Serial / Lot Clip Hemolok Ml [id number] - Csc - [id number] Implanted:Qty : 1 on 10/18/2022 by Winston Villalpando MD at [facility] Clip Right: Lung TELEFLEX- WECK CL[employer]URE SYS 06/18/2026 [id number] / / [id number] Sealant Progel Pleural 4ml [id number] - [id number] Implanted:Qty : 1 on 10/18/2022 by Winston Villalpando MD at [facility] Tissue Right: Lung BARD DAVOL [id number] 12/04/2023 [id number] / / [id number] Procedures Procedure Name Priority Date/Time Associated Diagnosis Comments HEMOGLOBIN A1C Routine 10/01/2022 12:33 PM MACHINE PIE MAKER Benign hypertension Cancer of lower lobe of right lung (CMS/HCC) Type 2 diabetes mellitus without complication, with long-term current use of insulin ([facility]) from Last 3 Months or Most Recently Relevant to Health Maintenance Results * (ABNORMAL) HEMOGLOBIN A1C (10/01/2022 12:33 PM MACHINE PIE MAKER) HEMOGLOBIN A1C 6.8(H) <5.7 % 10/01/2022 2:13 PM MACHINE PIE MAKER [facility] EST. AVG GLUCOSE, A1C 148 mg/dL 10/01/2022 2:13 PM MACHINE PIE MAKER [facility] Blood Venipuncture / Unknown 10/01/2022 12:33 PM MACHINE PIE MAKER 10/01/2022 1:45 PM MACHINE PIE MAKER Narrative [facility] - 10/01/2022 2:13 PM MACHINE PIE MAKER HGB A1C INTERPRETATION NORMAL: <5.7% PRE-DIABETES: 5.7 - 6.4% DIABETES: 6.5% OR GREATER Winston Villalpando MD CHEMISTRY ORDERABLES Final Res ult [facility] CLAZ# [id number] [address] [place] [address] from Last 3 Months or Most Recently Relevant to Health Maintenance Insurance [employer] [id number] [facility] BLUE ACCESS/TRUE BLUE PPO RX [employer] RX Member Subscriber Plan / Payer (Ef fective for All Dates) Name:Anthony Bonilla Relation to Subscriber:Self Name:Anthony Bonilla Subscriber ID:Not on file Payer ID:Not on file Group ID:[id number] Type:RX Commercial Address: [address] Advance Directives For more information, please contact: [phone] * Full Code (Latest Code Status on File) Date Activated Date Inactivated Comments 10/18/2022 5:47 PM 10/21/2022 7:26 PM * Full Code Date Activated Date Inactivated Comments 10/18/2022 5:47 AM 10/18/2022 5:47 PM Care Teams Decision Analyst Relationship Specialty Start Date End Date Charlette Chan MD PCP - General Internal Medicine 08/28/22
--- OUTSIDE RECORDS SUMMARY | 2025-03-16 12:03 | XMS_ITS | Clinical Summary ---
Author Organization [facility] Address [address] [place] [address] Care Team Providers Care Assignment Manager Name Role Phone Magda Chan MD Primary Care Provide r Uriel Black MD Unavailable [phone] Allergies No known active allergies Medications [...] fluticasone propionate (FLONASE) 50 mcg/actuation nasal spray [place] 2 sprays every day by intranasal route [...] on file Legal Sex Male 11:08 AM BARBERING TEACHER Gender Identity Not on file Sexual Orientation Not on file Obstetrics History Last Filed Vital Signs Vital Sign Reading Time Taken Comments Blood Pressure 122/58 09/22/2024 3:25 PM BARBERING TEACHER Pulse 103 09/22/2024 3:25 PM BARBERING TEACHER Temperature 36.7 C (98.1 F) 08/06/2022 11:23 AM BARBERING TEACHER Respiratory Rate 18 08/06/2022 11:23 AM BARBERING TEACHER Oxygen Saturation 96% 08/06/2022 11:23 AM BARBERING TEACHER Inhaled Oxygen Concentration - - Weight 95.3 kg (210 lb) 09/22/2024 3:25 PM BARBERING TEACHER Height 172.7 cm (5' 8) 08/06/2022 11:23 AM BARBERING TEACHER Body Mass Index 31.93 08/06/2022 11:23 AM BARBERING TEACHER Plan of Treatment Health Maintenance Due Date [...] 5 season) 2024 05/26/2021, 05/05/2021 Influenza Vaccine (#1) 2025 3, 06/12/2022, 06/13/2021, Additional history exists Insurance [place] CHOICE PLUS BLUE ACCESS OOS Care Teams Assignment Manager Relationship Specialty Start Date End Date Magda Chan MD [address] [place] [address] PCP - General Internal Medicine 06/13/22 Uriel Black MD [address] [place] [address] Radiation Oncologist Radiation Oncology 09/13/22
== END 2025-03-16 11:58 | disposition home or self-care (01) ==
PROVIDERS: PCP Internal Medicine; Visit Provider Internal Medicine Hematology & Oncology
DX: C34.31 Malignant neoplasm of lower lobe, right bronchus or lung (principal)
CPT/HCPCS: 78815; A9552

== ENCOUNTER 2025-04-13 00:45 | Day surgery (SDC) | payer BC, SELFPAY ==
--- OUTSIDE RECORDS SUMMARY | 2025-03-22 13:00 | XMS_ITS | Encounter Summary ---
Author Organization [facility] Address [address] [place] [address] Care Team Providers Care Hand Pleater Name Role Phone Charlette Chan MD Primary Care Provider Reason for Referral * Eval and Treat (Routine) - Closed Specialty Diagnoses / Procedures Referred By Contac t Referred To Contact Surgery Diagnoses Malignant neoplasm of lower lobe of right lung (CMS/HCC) Procedures NM OFFICE/OUTPATIENT ESTABLISHED MOD MDM 30 MIN NM OFFICE/OUTPATIENT NEW MODERATE MDM 45 MINUTES Matt Mcclelland MD [address] [facility] [address] [place] [address] Phone: tel: fax: Juan Bennett, [address] [place] [address] [address] [facility] [address] [place] [address] Phone: tel: fax: Referral ID Status Reason Start Date Expiration Date Visits Re quested Visits Authorized [id number] Closed 03/22/2025 03/22/2026 1 1 * Radiation Therapy (Routine) - Open Specialty Diagnoses / Procedures Referred By Contac t Referred To Contact Diagnoses Malignant neoplasm of lower lobe of right lung (CMS/HCC) Procedures NM OFFICE/OUTPATIENT ESTABLISHED MOD MDM 30 MIN NM OFFICE/OUTPATIENT NEW MODERATE MDM 45 MINUTES Esteban Vail MD [address] [facility] [address] [place] [address] Phone: tel: fax: Referral ID Status Reason Start Date Expiration Date Visits Re quested Visits Authorized [id number] Open 03/22/2025 03/22/2026 1 1 * Eval and Treat (Routine) - Authorized Specialty Diagnoses / Procedures Referred By Contac t Referred To Contact Pulmonology Diagnoses Hilar mass Procedures NM OFFICE/OUTPATIENT ESTABLISHED MOD MDM 30 MIN NM OFFICE/OUTPATIENT NEW MODERATE MDM [place] [address] [place] [address] [address] [place] [address] Phone: tel: fax: Abimael Stuart MD [address] [place] [address] [address] [place] [address] Phone: tel: fax: Referral ID Status Reason Start Date Expiration Date V isits Requested Visits Authorized [id number] Authorized 03/22/2025 03/22/2026 6 6 Reason for Visit * Reason Comments Cancer Follow Up Encounter Details Date Type Department Care Team (Late st Contact Info) Description 03/22/2025 1:00 PM CDT Office Visit [facility] [place] [facility] ([facility] Oncology and Hematology [facility] [address] [place] [id number] [place] [address] [place] [address] [address] [place] [address] Hilar mass (Primary Dx); Malignant neoplasm of lower lobe of right lung (CMS/HCC) Social History Tobacco Use Types Packs/Day Years Used Date Smoking Tobacco: Former Cigarettes 2 30 0 08/19/1991 - 08/19/2021 Smokeless Tobacco: Never Tobacco Cessation:Counseling Given: Not Answered Alcohol Use Standard Drinks/Week Comments Yes 0 (1 standard drink = 0.6 oz pur e alcohol) socially - few times a year Feeling Safe Answer Date Recorded Are you in a relationship wi th someone who hurts you emotionally and/or physically? No 04/05/2025 Food Insecurity Answer Date Recorded Patient needs follow up regardin 04/05/2025 Transportation Needs Answer Date Record ed Patient needs follow up regardin 04/05/2025 Housing Stability Answer Date Recorded Social/Environmental Concerns No concerns Utility Needs Answer Date Recorded Patient needs follow up regardin 04/05/2025 Sex and Gender Information Value Date Recorded Sex Assigned at Not on file Legal Sex Male 8:18 AM [employer]LE [employer] Gender Identity Not on file Sexual Orientation Not on file documented as of this encounter Last Filed Vital Signs Vital Sign Reading Time Taken Comments Blood Pressure 140/80 03/22/2025 1:00 PM CDT Pulse 92 03/22/2025 1:00 PM CDT Temperature 36.7 C (98.1 F) 03/22/2025 1:00 PM CDT Respiratory Rate 15 03/22/2025 1:00 PM CDT Oxygen Saturation 98% 03/22/2025 1:00 PM CDT Inhaled Oxygen Concentration - - Weight 96 kg (211 lb 9.6 oz) 03/22/2025 1:00 PM CDT Height - - Body Mass Index 30.36 11/21/2022 10:27 AM CDT documented in this encounter Progress Notes * Matt Mcclelland MD - 03/22/2025 2:39 PM CDT HEMATOLOGY / ONCOLOGY PROGRESS NOTE Patient Identification: Name: Anthony Bonilla Age: 54 y.o. Sex: male : 1970 DIAGNOSIS T3 N0 M0 stage IIB non-small cell lung cancer status post bronchoscopy and biopsy done on July 24, 2022 showed squamous cell carcinoma involving the right lower lobe mass. No tumor was seen on thespecimen. CURRENT TREATMENT Expectant TREATMENT HISTORY Right lower lobe lobectomy done on October 18, 2022. Patient had bronchoscopy with endobronchial biopsy of the lung mass and lymphadenopathy done on April 05, 2025 came back positive for squamous cell carcinoma. SUBJECTIVE Patient came to the office for follow-up visit after the PET scan was performed. Been dealing with cough for 3 months duration and intermittent hemoptysis. He has lost 34 pound weight but he is also on Ozempic. Patient is complaining of the left rib cage pain. No other new complaints. Review of system Constitutional: Patient did not mention fevers, sweats, fatigue, malaise, 34 pound weight loss HEENT: Patient did not mention sinus congestion, hearing or vision problems Respiratory: Complain of cough with intermittent hemoptysis Cardiovascular: Patient did not mention chest pain, exertional chest pressure/discomfort, nausea, syncope, shortness of breath GI: Patient did not mention constipation, diarrhea, dsyphagia, reflux symptoms, vomiting, melena : Patient did not mention dysuria, frequency, incontinence, urgency Integumentary system: no lymphadenopathy, sweats, flushing Musculoskeletal: Patient not mention: myalgia, arthralgia, complain of left rib cage pain Neurological: Patient did not mention blurry or disturbed vision, numbness/weakness, dizziness Skin: No lumps, bumps or rashes. 12 point review of system was reviewed Objective: Vital signs in last 24 hours: As per nursing note Exam: General appearance: alert, cooperative, no distress, appears stated age Head: normocephalic, without obvious abnormality, atraumatic Eyes: conjunctivae/corneas clear, EOM's intact Ears: normal external ear canals AU Nose: Nares normal. Septum midline. Mucosa normal. No drainage or sinus tenderness Throat: Lips, mucosa, and tongue normal. Teeth and gums normal Neck: supple, symmetrical, trachea midline. Lungs: clear to auscultation bilaterally Heart: regular rate and rhythm, S1, S2 normal, no murmur, click, rub or gallop Abdomen: soft, non-tender. Bowel sounds normal. No masses, No organomegaly Extremities: extremities normal, atraumatic, no cyanosis or edema Skin: Skin color, texture, turgor normal. No rashes or lesions Lymph nodes: No lymphadenopathy Neuro: No obvious focal deficit Exam as above PATH LABS Labs from September 17 showed WBC 7.7 hemoglobin 14.9 platelet 1 82,000 creatinine 1.4 @IMAGEIMP@ Assessment: Plan: Patient Active Problem List Diagnosis Date Noted Benign hypertension 09/12/2022 Cancer of lower lobe of right lung ([facility]/HCC) 09/12/2022 Type 2 diabetes mellitus without complication, with long-term current use of insulin ([facility]) 09/12/2022 T3 N0 M0 stage IIB non-small cell lung cancer status post bronchoscopy and biopsy done on July 24, 2022 showed squamous cell carcinoma involving the right lower lobe mass. No tumor was seen on thespecimen. Right lower lobe lobectomy done on October 18, 2022. Case was discussed with Dr Boggs. He suggested most likely extensive inflammatory changes led to the diagnosis of squamous cell carcinoma of the lung on preop biopsy. CTA chest was performed on March 04, 2025 due to cough and hemoptysis that showed mass in the right hilar and infrahilar area with extension to the subcarinal area. No evidence of pulm embolism. PET scan was performed on March 19, 2025 that showed 4.7 x 3.1 cm subcarinal lymph node with SUV of14.5. There was a right hilar lymph node measures 3.3 x 2.4 cm with SUV of 16.2. Extrinsic compression of the right middle lobe from the right hilar lymph node. There was no evidence of other metastatic disease in abdomen and pelvis. I have discussed this case with Dr Boggs today. We will refer to Dr. Young for the biopsy of the subcarinal lymph node. If the biopsy confirms a diagnosis of relapsed malignancy then patient willneed chemotherapy along with radiation therapy treatment. I will refer him for radiation oncology consultation as well as Mediport placement. Follow-up after the biopsy. 03/22/2025 Matt Mcclelland MD Addendum. EBUS and biopsy results from April 05, 2025 reviewed that showed squamous cell carcinoma. This will be classified at a stage III disease. We will start concurrent chemoradiation therapy with carboplatin and Taxol with radiation therapy. Patient is scheduled to see radiation oncology and will have port placed this week. He will start chemotherapy hopefully next 7 to 10 days along with radiation therapy. I will see him back in about 3 weeks. documented in this encounter Plan of Treatment Scheduled Referrals Name Type Priority Associated Diagnoses Order Schedule AMB REFERRAL TO PULMONARY Outpatient Referral Routine Hilar mass Ordered: 03/22/2025 AMB REFERRAL TO RADIATION ONCOLOGY Outpatient Referral Routine Malignant neoplasm of lower lobe of right lung (CMS/HCC) Ordered: 03/22/2025 AMB REFERRAL TO COLORECTAL SURGERY Outpatient Referral Routine Malignant neoplasm of lower lobe of right lung (CMS/HCC) Ordered: 03/22/2025 documented as of this encounter Visit Diagnoses Diagnosis Hilar mass- Primary Swelling, mass, or lump in chest Malignant neoplasm of lower lobe of right lung (CMS/HCC) documented in this encounter Care Teams Hand Pleater Relationship Specialty Start Date End Date Charlette Chan MD PCP - General Internal Medicine 08/28/22 documented as of this encounter
--- NOTE | 2025-03-25 14:43 | PC.NURSE ---
Addendum entered by Deanna Billings RN 04/09/25 08:48: Called pt, not change in status allergies or meds, just date change and same times, pt verbalizes understanding and questions answered Report to the Outpatient Waiting Room, entrance under the green pavilion located off [address], at time _10:00AM on date _ APRIL 13 . Planned Procedure Time: _12:00 NOON .? Time changes happen often and if your time is changed the preop area will call you the afternoon before. - You and your visitor will be asked to self-screen and do not enter if you have any COVID symptoms. Please call surgeon if you need to reschedule. - A mask is optional within the hospital at this time. JRRN Patients may have clear liquids (water, carbonated beverages, clear teas, apple juice) until 3 hours prior to surgery with a maximum of 20 ounces( 0900am) - No food from midnight until time of surgery and no smoking, or chewing tobacco (or any form of nicotine). No chewing gum, candy, and mints. Take only the following medications with a SIP of water on the morning of surgery: ___NONE;USE YOUR INHALER IF NEEDED DO NOT STOP ANY OF YOUR OTHER PRESCRIPTION MEDICATIONS PRIOR TO SURGERY EXCEPT THE FOLLOWING Hold all vitamins and supplements for 3 days per anesthesiologist. Medications to discontinue per physician N/A Date to take last dose N/A Original Note: Report to the Outpatient Waiting Room, entrance under the green pavilion located off [address], at time _10:00AM on date _ Saturday04/05/25 . Planned Procedure Time: _12:00 NOON .? Time changes happen often and if your time is changed the preop area will call you the afternoon before. - You and your visitor will be asked to self-screen and do not enter if you have any COVID symptoms. Please call surgeon if you need to reschedule. - A mask is optional within the hospital at this time. Patients may have clear liquids (water, carbonated beverages, clear teas, apple juice) until 3 hours prior to surgery with a maximum of 20 ounces( 0900am) - No food from midnight until time of surgery and no smoking, or chewing tobacco (or any form of nicotine). No chewing gum, candy, and mints. Take only the following medications with a SIP of water on the morning of surgery: ___NONE;USE YOUR INHALER IF NEEDED DO NOT STOP ANY OF YOUR OTHER PRESCRIPTION MEDICATIONS PRIOR TO SURGERY EXCEPT THE FOLLOWING Hold all vitamins and supplements for 3 days per anesthesiologist. Medications to discontinue per physician N/A Date to take last dose N/A Please no make-up, nail frisian, hairspray, perfume, deodorant, or body powder the day of surgery.? No jewelry (including any body piercings) or valuables the day of surgery, leave them at home.? Please take a shower or bath the night before, or the morning of, surgery with an antibacterial soap.? Wear comfortable, loose fitting clothing.? - Jewelry must be removed prior to entering the operating room.? Rings and piercings that are not removed may be cut off. - The hospital will not accept responsibility for valuables.? - Please leave all valuables, including medications, at home the day of surgery. If you are going home after surgery, a licensed refrigerated national truck driver must drive you home.? - NO public transportation without another adult if you receive anesthesia. - We recommend that an adult stay with you for 24 hours following discharge. - We also recommend that you do not drive, make important decision, drink alcoholic beverages, or take any drugs that were not prescribed by your health care provider for at least 24 hours after your discharge time. Follow any additional instructions given to you from your surgeon. Telephone instructions given to _CHARLES and asked if any additional questions and then verbalized understanding. Patient advised to call surgeon office or pre surgery nurse liaison [phone] if any additional questions.
--- OUTSIDE RECORDS SUMMARY | 2025-04-05 01:51 | XMS_ITS | Clinical Summary ---
Author Organization [facility] Address [address] [place] [address] Care Team Providers Care Slotter Operator Helper Name Role Phone Charlette Chan MD Primary Care Provider Allergies No known active allergies Medications albuterol sulfate HFA 90 mcg/actuation aerosol inhaler 1 time daily as needed. 08/28/2022 Active Farxiga 10 mg Tablet 07/17/2022 Active Advair Diskus 500-50 mcg/dose disk inhaler 06/27/2022 Active gabapentin (NEURONTIN) 600 mg tablet 3 times daily. 08/28/2022 Active metFORMIN (GLUCOPHAGE XR) 500 mg Extended [...] Encounters Date Type Department Care Team Description 03/30/2025 3:15 PM CDT Office Visit [facility] [address] [place] [address] Jean Ray MD Lymphadenopathy (Primary Dx); History of tobacco use; Hemoptysis 03/30/2025 Telephone [facility] [place] [address] [place] [address] Jean Ray MD Procedure 03/25/2025 Telephone [facility] [address] [place] [address] Abimael Stuart MD Wants Appointment 03/24/2025 External Device Data STL ABSTRACTION Provider, Abstract 03/22/2025 1:00 PM CDT Office Visit [facility] [address] [place] [address] Matt Mcclelland MD Hilar mass (Primary Dx); Malignant neoplasm of lower lobe of right lung (CMS/HCC) 03/19/2025 Orders Only [facility] [address] [place] [address] Matt Mcclelland MD 03/04/2025 Orders Only [facility] [address] [place] [address] Matt Mcclelland MD Malignant neoplasm of lower [...] on file 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 Gender Identity Not on file Sexual Orientation Not on file Last Filed Vital Signs Vital Sign Reading Time Taken Comments Blood Pressure 118/60 03/30/2025 3:06 PM CDT Pulse 91 03/30/2025 3:06 PM CDT Temperature 36.7 C (98.1 F) 03/22/2025 1:00 PM CDT Respiratory Rate 15 03/22/2025 1:00 PM CDT Oxygen Saturation 98% 03/30/2025 3:06 PM CDT Inhaled Oxygen Concentration - - Weight 96.4 kg (212 lb 9.6 oz) 03/30/2025 3:06 P M CDT Height 177.8 cm (5' 10) 03/30/2025 3:06 PM CDT Body Mass Index 30.5 03/30/2025 3:06 PM CDT Plan of Treatment Upcoming Encounters Date Type Department Care Team (Late st Contact Info) Description 04/05/2025 12:00 PM CDT Appointment [facility] [address] [place] [address] Health Maintenance Due Date Last Done Comments [...] Flex Sig/CT Colonography Q 5 years 2016 DIABETES HBA1C Q 6 MONTHS 03/31/2023 10/01/2022 ZOSTER VACCINE (2 of 2) 10/17/2023 08/22/2023 Preventative Visit- Commercial 08/19/2024 INFLUENZA VACCINE (#1) 2025 3, 06/12/2022, 06/13/2021, Additional history exists Medical Devices Implanted Type Area Electric Screw Driver Operator Device Identifier Shelf Expiration Date Model / Serial / Lot Clip Hemolok Ml [id number] - Csc - [id number] Implanted:Qty : 1 on 10/18/2022 by Winston Villalpando MD at [facility] Clip Right: Lung TELEFLEX- WECK CLOSURE SYS 06/18/2026 [id number] / / [id number] Sealant Progel Pleural 4ml [id number] - [id number] Implanted:Qty : 1 on 10/18/2022 by Winston Villalpando MD at [facility] Tissue Right: Lung BARD DAVOL [id number] 12/04/2023 [id number] / / [id number] Procedures Procedure Name Priority Date/Time Associated Diagnosis Comments PET BONE IMG W CT SKL BSE MID THG Routine 03/16/2025 1:15 PM CDT HEMOGLOBIN A1C Routine 10/01/2022 12:33 PM SLIVER CHOPPER Benign hypertension Cancer of lower lobe of right lung (CMS/HCC) Type 2 diabetes mellitus without complication, with long-term current use of insulin (CMS/HCC) from Last 3 Months or Most Recently Relevant to Health Maintenance Results * PET BONE IMG W CT SKB MD (03/16/2025 1:15 PM CDT) Anatomical Region Laterality Modality Positron Emissio n Tomography (PET) Matt Mcclelland MD PE ORDERABLES Final Result * (ABNORMAL) HEMOGLOBIN A1C (10/01/2022 12:33 PM SLIVER CHOPPER) HEMOGLOBIN A1C 6.8(H) <5.7 % 10/01/2022 2:13 PM SLIVER CHOPPER [facility] EST. AVG GLUCOSE, A1C 148 mg/dL 10/01/2022 2:13 PM SLIVER CHOPPER [facility] Blood Venipuncture / Unknown 10/01/2022 12:33 PM SLIVER CHOPPER 10/01/2022 1:45 PM SLIVER CHOPPER Narrative [facility] - 10/01/2022 2:13 PM SLIVER CHOPPER HGB A1C INTERPRETATION NORMAL: <5.7% PRE-DIABETES: 5.7 - 6.4% DIABETES: 6.5% OR GREATER Winston Villalpando MD CHEMISTRY ORDERABLES Final Res ult [facility]# [id number] [address] [place] [address] from Last 3 Months or Most Recently Relevant to Health Maintenance Insurance BCBS BLUE ACCESS/TRUE BLUE PPO BCBS BLUE ACCESS/TRUE BLUE PPO RX [employer] RX Member Subscriber Plan / Payer (Ef fective for All Dates) Name:Anthony Bonilla Relation to Subscriber:Self Name:Anthony Bonilla Subscriber ID:Not on file Payer ID:Not on file Group ID:[id number] Type:RX Commercial Address: [address] Advance Directives For more information, please contact: [phone] * Full Code (Latest Code Status on File) Date Activated Date Inactivated Comments 10/18/2022 5:47 PM 10/21/2022 7:26 PM * Full Code Date Activated Date Inactivated Comments 10/18/2022 5:47 AM 10/18/2022 5:47 PM Care Teams Slotter Operator Helper Relationship Specialty Start Date End Date Charlette Chan MD PCP - General Internal Medicine 08/28/22
--- OUTSIDE RECORDS SUMMARY | 2025-04-05 01:51 | XMS_ITS ---
Author Organization [facility] Address [address] [place] [address] Care Team Providers Care Global Account Director Name Role Phone Magda Chan MD Primary Care Provide r Uriel Black MD Unavailable [phone] Active Problems Problem Noted Date Diagnosed [...]
--- OUTSIDE RECORDS SUMMARY | 2025-04-05 01:51 | XMS_ITS | Clinical Summary ---
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 Gender Identity Not on file Sexual Orientation Not on file Obstetrics History Last Filed Vital Signs Vital Sign Reading Time Taken Comments Blood Pressure 122/58 09/22/2024 3:25 PM MASTER BARBER Pulse 103 09/22/2024 3:25 PM MASTER BARBER Temperature 36.7 C (98.1 F) 08/06/2022 11:23 AM MASTER BARBER Respiratory Rate 18 08/06/2022 11:23 AM MASTER BARBER Oxygen Saturation 96% 08/06/2022 11:23 AM MASTER BARBER Inhaled Oxygen Concentration - - Weight 95.3 kg (210 lb) 09/22/2024 3:25 PM MASTER BARBER Height 172.7 cm (5' 8) 08/06/2022 11:23 AM MASTER BARBER Body Mass Index 31.93 08/06/2022 11:23 AM MASTER BARBER Plan of Treatment Health Maintenance Due Date [...] 3, 06/12/2022, 06/13/2021, Additional history exists Insurance [facility] CHOICE PLUS [facility] HMO/PPO Address: [address] [address] [place] [address] BLUE ACCESS OOS Care Teams Assembly Room Supervisor Relationship Specialty Start Date End Date Magda Chan MD [address] [place] [address] PCP - General Internal Medicine 06/13/22 Uriel Black MD [address] [place] [address] Radiation Oncologist Radiation Oncology 09/13/22
--- OUTSIDE RECORDS SUMMARY | 2025-04-05 01:51 | XMS_ITS | Clinical Summary ---
Author Organization [facility] Address [address] [place] [address] Care Team Providers Care Rn Mental Health Name Role Phone Unavailable Primary Care Provider [...]
--- NOTE | ~2025-04-13 | XR_ITS ---
XR fl guide central line place Indication: Portacatheter insertion TECHNIQUE: Fluoroscopy used during portacatheter insertion performed by [Cameron Paul MD] on 04/13/2025. 3 fluoroscopic images captured. FINDINGS: Correlate with procedure note. IMPRESSION: Fluoroscopy used during Portacatheter insertion. Reviewed, dictated and finalized at location O.
--- NOTE | ~2025-04-13 | XR_ITS ---
XR chest port-a-cath/central 04/13/2025 13:44 Indication: Portacatheter placement Procedure: AP portable chest Comparison: 10/23/2022 Findings: Right subclavian leydi catheter tip in the SVC. There are calcified right hilar lymph nodes, consistent with chronic granulomatous disease. Shallow inspiration. Bibasilar infiltrates may represent atelectasis or developing pneumonia. No pneumothorax. No significant effusion. Impression: 1: Bibasilar infiltrates, atelectasis versus pneumonia. Clinically correlate. Reviewed, dictated and finalized at location O. Impression: 1: Bibasilar infiltrates, atelectasis versus pneumonia. Clinically correlate.
--- OUTSIDE RECORDS SUMMARY | 2025-04-13 00:47 | XMS_ITS | Clinical Summary ---
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 Gender Identity Not on file Sexual Orientation Not on file Obstetrics History Last Filed Vital Signs Vital Sign Reading Time Taken Comments Blood Pressure 122/58 09/22/2024 3:25 PM GRINDER Pulse 103 09/22/2024 3:25 PM GRINDER Temperature 36.7 C (98.1 F) 08/06/2022 11:23 AM GRINDER Respiratory Rate 18 08/06/2022 11:23 AM GRINDER Oxygen Saturation 96% 08/06/2022 11:23 AM GRINDER Inhaled Oxygen Concentration - - Weight 95.3 kg (210 lb) 09/22/2024 3:25 PM GRINDER Height 172.7 cm (5' 8) 08/06/2022 11:23 AM GRINDER Body Mass Index 31.93 08/06/2022 11:23 AM GRINDER Plan of Treatment Health Maintenance Due Date Last Done Comments Colon Cancer Screening-Colonoscopy 1971 Depression Screening 1971 Hepatitis C Screening 1971 Prostate Cancer Screening-PSA 1971 DTaP/Tdap/Td Vaccine (1 - Tdap) 1982 Hepatitis B Screening 1989 Regular Well Visit/Exam 18-64 1989 Pneumococcal vaccine <65 (1 of 2 - PCV) 1990 Covid-19 Vaccine (3 - 2023-2 5 season) 2024 05/26/2021, 05/05/2021 Influenza Vaccine (#1) 2025 , 06/12/2022, 06/13/2021, Additional history exists Zoster Vaccine Completed 10/28/2023, 08/22/2023 Insurance [facility] CHOICE PLUS BLUE ACCESS OOS Care Teams Podopediatrician Relationship Specialty Start Date End Date Magda Chan MD [address] [place] [address] PCP - General Internal Medicine 06/13/22 Uriel Black MD [address] [place] [address] Radiation Oncologist Radiation Oncology 09/13/22
--- OUTSIDE RECORDS SUMMARY | 2025-04-13 00:47 | XMS_ITS ---
Author Organization [facility] Address [address] [place] [address] Care Team Providers Care Regulatory Specialist Name Role Phone Magda Chan MD Primary Care Provide r Uriel Black MD Unavailable [phone] Active Problems Problem Noted Date Diagnosed [...]
--- OUTSIDE RECORDS SUMMARY | 2025-04-13 00:47 | XMS_ITS | Clinical Summary ---
Author Organization [facility] Address [address] [place] [address] Care Team Providers Care Shotblast Equipment Operator Name Role Phone Unavailable Primary Care Provider [...]
--- NOTE | 2025-04-13 08:55 | WPDANESEPPF ---
Anes - Initial Pre Proc Eval Procedure: Operation Date: 04/13/25 12:00 Proposed Procedures p Insertion Jackie Cath - Cameron Paul MD Date/Time: 04/13/25 08:55 Surgeon: Cameron Paul MD Pre Op Diagnosis: Lung Ca Patient Data Age: 54 Gender: M Height: Weight: 97 kg Allergies Allergy/AdvReac Type Severity Reaction Status Date / Time No Known Allergies Allergy Verified 04/09/25 08:49 Home Medications ?Medication ?Instructions ?Recorded ?Confirmed ?Type albuterol sulfate 90 mcg/actuation 2 puff inhalation QID PRN 11/25/20 04/13/25 Rx aerosol inhaler shortness of breath or wheezing #6.7 grams dapagliflozin propanediol 10 mg 10 mg PO DAILY 03/25/25 04/13/25 History tablet (Farxiga) gabapentin 600 mg tablet 600 mg PO BID 03/25/25 04/13/25 History metformin 500 mg tablet,extended 1,000 mg PO BID 03/25/25 04/13/25 History release 24 hr semaglutide 1 mg/dose (4 mg/3 mL) 1 mg subcut WEEKLY 03/25/25 04/13/25 History subcutaneous pen injector (Ozempic) Patient hx anesthesia problems: none Family hx anesthesia problems: none Results Review: All pre-operative results and documents have been reviewed as part of the pre-operative evaluation. [facility] Past Medical History Medical History (Updated 04/13/25 @ 08:55 by Kin Up DO) Lung cancer SALLY (obstructive sleep apnea) Asthma Diabetes mellitus Hypertension Social History Social History Smoking packs per day: 2 Smoking cigarettes per day: 40.0 Years smoked: 35 Smoking pack-years: 70.00 Smoking status: Former smoker Tobacco type: cigarettes Smoking end date: 08/19/22 Alcohol intake: never Substance use: current Substance use type: marijuana Living arrangements: with family Gender identity (if verbalized by the patient): Male Spiritual care concerns: No Anes - Eval Final PreProcedure Day of Procedure 04/13/25 08:55 Patient weight: obese Heart: regular rate and rhythm Lungs: clear to auscultation Airway: Mallampati scale class II Neurological: alert and oriented Last oral intake: >/= 8 hours ASA classification: III Emergent: no Anesthetic plan: proceed Anesthesia type and monitoring: general GIVS and standard monitoring Results Review: All pre-operative results and documents have been reviewed as part of the pre-operative evaluation. Informed Consent: The patient's anesthetic plan and its attendant risks and benefits were discussed with the patient/family/POA. Questions were solicited and answers provided to the satisfaction of the patient/family/POA.
[2025-04-13 10:16] VITALS: BP 134/67; PULSE 84; RESP 16; TEMP 36.6; O2SAT 99
[2025-04-13] MEDS: LIDO 1%/EPINEPHRINE 1:100,000 20 ML VIAL 30 ML INFILTRATE (12:14)
--- NOTE | 2025-04-13 12:30 | PM.IMHP ---
H&P: HPI History of Present Illness Date/Time: 04/13/25 12:30 Chief Complaint: Recurrent SCC right lung Narrative: Pt with SCC right lower lobe lung 2021. He underwent thoracotomy and RLL resection at that time. No chemo or radiation tx afterwards. Recently had PET/CT chest showing recurrence in the right hilum. He is to undergo chemo rad tx now and presents for port placement. No prior hx of port or central line placement in SC or IJ veins. Review of Systems Review of Systems: The remainder of the review of systems to include constitutional, HEENT, cardiovascular, respiratory, GI, , integumentary, musculoskeletal, endocrine, immunologic, hematologic, psychiatric, and neurologic are all negative except for which is mentioned above in the HPI. [facility] Past Medical History Medical History Lung cancer SALLY (obstructive sleep apnea) Asthma Diabetes mellitus Hypertension Social History Social History Smoking packs per day: 2 Smoking cigarettes per day: 40.0 Years smoked: 35 Smoking pack-years: 70.00 Smoking status: Former smoker Tobacco type: cigarettes Smoking end date: 08/19/22 Alcohol intake: never Substance use: current Substance use type: marijuana Living arrangements: with family Gender identity (if verbalized by the patient): Male Spiritual care concerns: No Meds Home Medications and Allergies Home Medications ?Medication ?Instructions ?Recorded ?Confirmed ?Type albuterol sulfate 90 mcg/actuation 2 puff inhalation QID PRN 11/25/20 04/13/25 Rx aerosol inhaler shortness of breath or wheezing #6.7 grams dapagliflozin propanediol 10 mg 10 mg PO DAILY 03/25/25 04/13/25 History tablet (Farxiga) gabapentin 600 mg tablet 600 mg PO BID 03/25/25 04/13/25 History metformin 500 mg tablet,extended 1,000 mg PO BID 03/25/25 04/13/25 History release 24 hr semaglutide 1 mg/dose (4 mg/3 mL) 1 mg subcut WEEKLY 03/25/25 04/13/25 History subcutaneous pen injector (Ozempic) Allergies Allergy/AdvReac Type Severity Reaction Status Date / Time No Known Allergies Allergy Verified 04/09/25 08:49 Vital Signs Vital Signs - 24 hr 04/13/25 10:16 Temperature 36.6 C Pulse Rate 84 Respiratory Rate 16 Blood Pressure 134/67 Pulse Oximetry 99 Oxygen Delivery Room Air Exam Const: General: comfortable and no acute distress HENMT: Ears: TM's normal bilaterally Face/Nose/Sinus: Normal nares present Mouth: Yes moist mucous membranes Eyes: General: appearance normal, both eyes and all related structures Sclera: sclerae normal Pupils: Equal, round and reactive pupils present EOM: EOMs intact bilaterally Neck: Neck: supple and no JVD Chest: Other: No chest rash, symmetric clavicles. Resp: Effort & Inspection: normal respiratory effort Auscultation: clear to auscultation bilaterally Cardio: Rate: regular rate Rhythm: regular rhythm GI: GI Palp: Yes Soft to palpation, No Firmness to palpation present (GI), No Tenderness to palpation present (GI), No Guarding due to palpation present (GI) and No Hernia present Skin: General skin exam: normal color and no rashes or lesions noted Neuro: General: gait normal Speech: normal speech Motor exam (neuro): 5/5 motor strength present throughout Sensory Exam: normal sensation Extrem: General: normal to inspection Psych: Mental Status: mental status grossly normal Affect: normal affect Assessment and Plan Assessment and plan (1) Squamous cell carcinoma of right lung: Code(s): C34.91 - Malignant neoplasm of unspecified part of right bronchus or lung Status: Acute Assessment and Plan: Pt needs to start chemo tx and rad tx. Proceed with placement of portacatheter today. Risks, benefits, indications, and expected outcomes were discussed in detail with the patient and/or family. They understand and I have answered all other questions. They wished to proceed with surgery as outlined above. Specific risk of iatrogenic pneumothorax and need for chest tube as well as bleeding with need for blood transfusion discussed with pt and he agrees to proceed.
--- NOTE | 2025-04-13 12:37 | WPDHPUPDATE1 ---
History and Physical Update Update Date/Time: 04/13/25 12:37 History and Physical has been reviewed, including an updated exam of the patient. There are NO changes in the patient's condition. Risks, benefits, and alternatives have been discussed and questions answered. Patient agrees to proceed with procedure.
[2025-04-13] MEDS: ceFAZolin 2 GM in SODIUM CHLORIDE 0.9% IV 50 ML 100 ML IVPB (12:56)
--- NOTE | 2025-04-13 13:54 | W.PM.PROC2 ---
Procedure Note - Detailed Date of Procedure 04/13/25 Pre-op Diagnosis Recurrent squamous cell carcinoma right lung Post-op Diagnosis Same Procedure Performed placement of right subclavian vein single-lumen port a catheter with intraoperative fluoroscopy. Surgeon Cameron Paul MD Anesthesia General Indications Patient is a 54-year-old white male who underwent a previous surgical resection of the right lower lobe along for squamous cell carcinoma in 2021. He did not receive any post operative chemotherapy or radiation treatments. Unfortunately he was found have recurrent squamous cell carcinoma of the right lung involving the hilum recently and is to undergo chemotherapy and radiation treatments. He presents for placement of a leydi catheter to begin his chemotherapy treatments. Findings None significant Description of Procedure after informed consent was obtained patient was brought to the operating room was placed supine position and then general LMA anesthesia was administered. The bilateral upper anterior neck and chest was then prepped and draped usual sterile fashion. A time-out was then performed correctly identifying the patient as well as procedure to be performed. He was given perioperative IV antibiotics. As the patient's disease was on this right lung I elected to place the leydi catheter in the right side. 1% lidocaine mixed with 0.5% Marcaine with some epinephrine was injected just below the medial 3rd of the right clavicle. Transverse incision was then made this area the scalpel the dissection was carried down through the subcutaneous tissues internal reach the anterior pectoralis major muscle fascia. I then dissected in the subcutaneous tissues inferior to the incisions created the subcutaneous port pocket with electrocautery and blunt finger dissection. I then had the patient placed in the head-down Trendelenburg position. Through the incision I then used a long 18gauge spinal needle to cannulate the right subclavian vein. There was prompt return of dark venous appearing blood. A guidewire was advanced through the needle into the right subclavian artery pre and subsequent into the superior vena cava. The needle was removed leaving the guidewire in place. Intraoperative fluoroscopy was then used to visualize the tip of the guidewire which was in the proper position in the distal superior vena cava. I then advanced a dilator and breakaway sheath over the guidewire and the dilator and guidewire were removed leaving the sheath in place. A 9.6 [place] single-lumen silastic catheter was advanced through the sheath into the right subclavian vein and subsequently into the right atrium heart. Sheath was then torn away leaving the catheter in place. Intraoperative fluoroscopy was then used to visualize the tip of the catheter which is in the right atrium of the heart. I then pulled back on the catheter external to the chest wall until the tip of the catheter was in the distal superior vena cava. The catheter was then cut to the appropriate length at the skin level and then attached to the titanium Smart Port. The port was then placed in the subcutaneous port pocket. It was then secured on 3 sides utilizing 3-0 Prolene sutures. I then accessed the port and it aspirated blood easily with a Mendez needle. It was then flushed with heparinized saline solution. I then irrigated the port pocket with sterile saline solution hemostasis was good. I then closed the incision utilizing interrupted 3-0 Vicryl sutures in the subcutaneous tissues. This was then followed by layer of interrupted 3-0 Vicryl sutures the deep dermal layer. The skin edges were then approximated utilizing a running subcuticular 4 Monocryl suture. The incision was then cleaned and then skin glue was applied. I then accessed the port percutaneously and again aspirated blood easily with the Mendez needle and it was flushed with 5000units of IV heparin. The patient tolerated the procedure well no complications. All sponges, needles, and instrument counts were correct at the end procedure. EBL was _20__cc. The patient was awakened and taken to recovery in stable and satisfactory condition. Implants 9.6 [place] single-lumen silastic catheter attached to titanium Smart port placed via the right subclavian vein. Estimated Blood Loss 20 Drains No Packing No Pathology None sent Complications No immediate complications Condition Stable Disposition PACU [facility] Billing Surgery - Charge Forward: Surgery Billing
[2025-04-13 14:04] VITALS: BP 128/62; PULSE 78; RESP 14; O2SAT 98
[2025-04-13] MEDS: LACTATED RINGERS 1,000 ML 30 ML IV CONT ×2 (14:04→14:30)
--- NOTE | 2025-04-13 14:16 | SUR.PHASEII ---
Dr Paul at bedside. viewed CXR and stated that the port position is okay for d/c.
--- NOTE | 2025-04-13 14:27 | SUR.PHASEII ---
Dr. Paul notified by this RN of CXR results. Per MD connor to d/c home.
[2025-04-13 14:30] VITALS: BP 131/61; PULSE 76; RESP 16
[2025-04-13 14:55] VITALS: BP 132/59; PULSE 76; RESP 16
== END 2025-04-13 14:58 | disposition home or self-care (01) ==
PROVIDERS: PCP Internal Medicine; Visit Provider Surgery
PROC: (CPT 36561; principal; 2025-04-13 12:00)
DX: C34.91 Malignant neoplasm of unspecified part of right bronchus or lung (principal); I10 Essential (primary) hypertension; E11.9 Type 2 diabetes mellitus without complications; J45.909 Unspecified asthma, uncomplicated; G47.33 Obstructive sleep apnea (adult) (pediatric); F12.90 Cannabis use, unspecified, uncomplicated; E66.9 Obesity, unspecified; Z68.28 Body mass index [BMI] 28.0-28.9, adult; Z79.51 Long term (current) use of inhaled steroids; Z79.84 Long term (current) use of oral hypoglycemic drugs; Z79.85 Long-term (current) use of injectable non-insulin antidiabetic drugs; Z87.891 Personal history of nicotine dependence
CPT/HCPCS: 36561; 77001; 82948; J0690; C1788; J1644; J2003; J2004; J2250; J2704; J3010; J7030; J7120

== ENCOUNTER 2025-06-07 15:33 | Outpatient (CLI) | payer BC, SELFPAY ==
--- NOTE | ~2025-06-07 | MR_ITS ---
EXAMINATION: MR brain/brain stem wo/w con DATE: 06/07/2025 16:27 INDICATION: Malignant neoplasm of unspecified part. TECHNIQUE: Magnetic resonance imaging (MRI) of the brain and brainstem was performed without and with 18 mL MultiHance intravenous contrast. COMPARISON: None. FINDINGS: There is no intracranial hemorrhage, acute infarction, or abnormal intracranial mass lesion. The ventricles are normal in size. There are mucous retention cysts in the maxillary sinuses. There is mild mucosal thickening in the ethmoid sinuses. There are likely changes of ocular lens replacement surgeries. The mastoid air cells are normal. IMPRESSION: 1. Normal brain. Reviewed, dictated and finalized at location E. IMPRESSION: 1. Normal brain.
--- OUTSIDE RECORDS SUMMARY | 2025-06-07 18:17 | XMS_ITS | Clinical Summary ---
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 Gender Identity Not on file Sexual Orientation Not on file Obstetrics History Last Filed Vital Signs Vital Sign Reading Time Taken Comments Blood Pressure 122/58 09/22/2024 3:25 PM CLEANER AND TRIMMER Pulse 103 09/22/2024 3:25 PM CLEANER AND TRIMMER Temperature 36.7 C (98.1 F) 08/06/2022 11:23 AM CLEANER AND TRIMMER Respiratory Rate 18 08/06/2022 11:23 AM CLEANER AND TRIMMER Oxygen Saturation 96% 08/06/2022 11:23 AM CLEANER AND TRIMMER Inhaled Oxygen Concentration - - Weight 95.3 kg (210 lb) 09/22/2024 3:25 PM CLEANER AND TRIMMER Height 172.7 cm (5' 8) 08/06/2022 11:23 AM CLEANER AND TRIMMER Body Mass Index 31.93 08/06/2022 11:23 AM CLEANER AND TRIMMER Plan of Treatment Health Maintenance Due Date Last Done Comments Colon Cancer Screening-Colonoscopy 1971 Depression Screening 1971 Hepatitis C Screening 1971 Prostate Cancer Screening-PSA 1971 DTaP/Tdap/Td Vaccine (1 - Tdap) 1982 Hepatitis B Screening 1989 Regular Well Visit/Exam 18-64 1989 Pneumococcal vaccine <65 (1 of 2 - PCV) 1990 Covid-19 Vaccine (3 - 2024-2 6 season) 2025 05/26/2021, 05/05/2021 Influenza Vaccine (#1) 2025 , 06/12/2022, 06/13/2021, Additional history exists Zoster Vaccine Completed 10/28/2023, 08/22/2023 Insurance [facility] CHOICE PLUS BLUE ACCESS OOS Care Teams Forging Press Lever Tender Relationship Specialty Start Date End Date Magda Chan MD [address] [place] [id number] PCP - General Internal Medicine 06/13/22 Uriel Black MD [address] [place] [address] Radiation Oncologist Radiation Oncology 09/13/22
--- OUTSIDE RECORDS SUMMARY | 2025-06-07 18:17 | XMS_ITS | Encounter Summary ---
Author Organization [facility] Address [address] [place] [address] Care Team Providers Care Power Nut Runner Operator Name Role Phone Charlette Chan MD Primary Care Provider Encounter Details Date Type Department Care Team (Late Contact Info) Description 06/07/2025 Orders Only [facility] Oncology and Hematology - [place] [address] [facility] [place] [address] Matt Mcclelland MD [address] [facility] [address] [place] [address] Hilar mass; Benign hypertension Social History Tobacco Use Types Packs/Day Years [...] on file 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 Gender Identity Not on file Sexual Orientation Not on file documented as of this encounter Plan of Treatment Upcoming Encounters Date Type Department Care Team (Late st Contact Info) Description 06/14/2025 9:30 AM CDT Office Visit [facility] Oncology and Hematology - [place] [address] [facility] [place] [address] Matt Mcclelland MD [address] [facility] [address] [place] [address] documented as of this encounter Visit Diagnoses Diagnosis Hilar mass Swelling, mass, or lump in chest Benign hypertension Essential hypertension, benign documented in this encounter Care Teams Power Nut Runner Operator Relationship Specialty Start Date End Date Charlette Chan MD PCP - General Internal Medicine 08/28/22 documented as of this encounter
--- OUTSIDE RECORDS SUMMARY | 2025-06-07 18:17 | XMS_ITS | Clinical Summary ---
Author Organization [facility] Address [address] [place] [id number] Care Team Providers Care Flight Mechanic Name Role Phone Unavailable Primary Care Provider [...] COVID-19 Vaccine ( - 2023-2 5 season) 2025 Influenza Adult (#1) 2025 Hepatitis A Vaccines Aged Out No long er eligible based on patient's age to complete this topic Meningococcal B Vaccine Aged Out No l onger eligible based on patient's age to complete this topic Meningococcal Vaccine Aged Out No wisam case eligible based on patient's age to complete this topic RSV Immunizations Under 20 Months Aged Out No longer eligible based on patient's age to complete this topic
--- OUTSIDE RECORDS SUMMARY | 2025-06-07 18:17 | XMS_ITS ---
Author Organization [facility] Address [address] [place] [address] Care Team Providers Care Slitter And Cutter Operator Name Role Phone Magda Chan MD Primary Care Provide r Uriel Black MD Unavailable Active Problems Problem Noted Date Diagnosed Date [...]
--- OUTSIDE RECORDS SUMMARY | 2025-06-07 18:17 | XMS_ITS | Clinical Summary ---
Author Organization [facility] Jerson Martinez Address [address] [place] [address] Care Team Providers Care Language Pathologist Name Role Phone Charlette Chan MD Primary Care Provider Allergies No known active allergies Medications albuterol sulfate HFA 90 mcg/actuation aerosol inhaler 1 time daily as needed. 3 Active Farxiga 10 mg Tablet 2 Active Advair Diskus 500-50 mcg/dose disk inhaler 2 Active gabapentin (NEURONTIN) 600 mg tablet 3 times daily. 3 Active metFORMIN (GLUCOPHAGE XR) 500 mg Extended Release 24 hour tablet 2 times daily with meals. 2 Active Ozempic 0.25 mg or 0.5 mg(2 mg/1.5 mL) Pen Injector every 7 days. Saturday 2 Active insulin degludec (TRESIBA) 200 unit/mL pen syringe 44 Units daily at bedtime. Active glimepiride (AMARYL) 2 mg tablet 2 times daily with meals. Below BS 117, only take one tablet 2 Active lidocaine-prilo kathy (EMLA) 2.5-2.5 % Cream Apply a quarter size amount to port site 30 minutes before access. 30 Gram 1 5 Active ondansetron (ZOFRAN ODT) 8 mg Tablet, Rapid Dissolve Dissolve 1 tablet on top of tongue then swallow with saliva every 8 hours as needed for nausea or vomiting 30 Tablet 1 5 Active ALPRAZolam (Xanax) 0.5 mg tabletIndicatio ns:Malignant neoplasm of lower lobe of right lung Take 1 Tablet (0.5 mg) by mouth 2 times daily. 60 Tablet 1 Active methylPREDNISol one (MEDROL DOSPACK) 4 mg Tablets, Dose Pack Use as directed 21 Tablet Active LORazepam (ATIVAN) 0.5 mg tabletIndicatio ns:Claustrophob ia Take 1 Tablet (0.5 mg) by mouth one time for 1 dose. Take prior to MRI for claustrophob ia. 1 Tablet 5 05/18/20 Discontinue d(Alternate therapy prescribed) ALPRAZolam (XANAX) 0.25 mg tabletIndicatio ns:Anxiety state Take 4 Tablets (1 mg) by mouth nightly as needed for Anxiety. 30 Tablet 5 05/24/20 Discontinue d(Alternate therapy prescribed) Active Problems Problem Noted Date Diagnosed Date Lung mass 04/05/2025 Benign hypertension 09/12/2022 Cancer of lower lobe of right lung 09/12/2022 Type 2 diabetes mellitus wit hout complication, with long-term current use of insulin 09/12/2022 Encounters Date Type Department Care Team Description 06/07/2025 Orders Only [facility] Oncology and Hematology - [address] [place] [address] Matt Mcclelland MD Hilar mass; Benign hypertension 06/04/2025 Chart Note [facility] Oncology Patient Navigation [address] [place] [address] Elis Russo, RN Nurse Navigation (Follow up) 05/31/2025 Orders Only [facility] Oncology and Hematology - [address] [place] [address] Matt Mcclelland MD 05/25/2025 Abstract [facility] Oncology and Hematology - Fan Luis Enrique [address] [place] [address] Matt Mcclelland MD 05/24/2025 9:00 AM CDT Office Visit [facility] Oncology and Hematology - Fan [address] [place] [address] Matt Mcclelland MD Malignant neoplasm of lower lobe of right lung (Primary Dx); Hilar mass 05/24/2025 Orders Only [facility] [address] [place] [address] Matt Mcclelland MD Benign hypertension (Primary Dx) 05/21/2025 Chart Note [facility] Oncology Patient Navigation [address] [place] [address] Elis Russo, ABRAHAM Nurse Navigation (Follow up) 05/18/2025 Orders Only [facility] Oncology and [facility] [address] [place] [address] Matt Mcclelland MD Anxiety state (Primary Dx) 05/14/2025 Orders Only [facility] [address] [place] [address] Matt Mcclelland MD Hilar mass (Primary Dx) 05/13/2025 Refill [facility] [address] [place] [address] Matt Mcclelland MD 05/05/2025 Chart Note [facility] Oncology Patient Navigation [address] [place] [address] Elis Russo RN Nurse Navigation (Follow up) 04/21/2025 Orders Only [facility] Radiation Therapy [address] [place] [address] Esteban Vail MD Claustrophobia (Primary Dx) 04/20/2025 External Device Data [facility] ABSTRACTION Provider, Abstract 04/20/2025 External Device Data [facility] ABSTRACTION Provider, Abstract 04/20/2025 Abstract [place] [address] [place] [address] Matt Mcclelland MD 04/14/2025 Chart Note [facility] Oncology Patient Navigation [address] [place] [address] Elis Russo, ABRAHAM Nurse Navigation (Follow up) 04/09/2025 Chart Note [facility] Oncology Patient Navigation [address] [place] [address] Elis Russo, RN Nurse Navigation (Establish care) 04/07/2025 Results Follow-Up [facility] Pulmonology [facility] [address] [place] [address] Jean Ray MD CYTOLOGY, NON GYNE, PATHOLOGY, RESPIRATORY CULTURE WITH GRAM STAIN 04/06/2025 External Device Data [facility] ABSTRACTION Provider, Abstract 04/06/2025 External Device Data [facility] ABSTRACTION Provider, Abstract 04/05/2025 9:49 AM CDT - 04/05/2025 2:15 PM CDT Hospital Encounter [facility] Interventional Care [address] [place] [address] Matt Mcclelland MD Lung mass Discharge Disposition: Home or Self Care 04/05/2025 Travel 03/30/2025 3:15 PM CDT Office Visit [facility] Pulmonology [facility] [address] [place] [address] Jean Ray MD Lymphadenopathy (Primary Dx); History of tobacco use; Hemoptysis 03/30/2025 Telephone [facility] Pulmonology [facility] [address] [place] [address] Jean Ray MD Procedure 03/25/2025 Telephone [facility] [address] [place] [address] Abimael Stuart MD Wants Appointment 03/24/2025 External Device Data [facility] ABSTRACTION Provider, Abstract 03/22/2025 1:00 PM CDT Office Visit [facility] Oncology and Hematology - Fan [address] [place] [address] Matt Mcclelland MD Hilar mass (Primary Dx); Malignant neoplasm of lower lobe of right lung (CMS/HCC) 03/19/2025 Orders Only [facility] Oncology and Hematology - Fan [address] [place] [address] Matt Mcclelland MD from Last 3 Months Family History Medical [...] on file Legal Sex Male 8:18 AM GRID TRIMMER Gender Identity Not on file Sexual Orientation Not on file Last Filed Vital Signs Vital Sign Reading Time Taken Comments Blood Pressure 155/86 05/24/2025 9:07 AM CDT Pulse 124 05/24/2025 9:07 AM CDT Temperature 36.2 C (97.1 F) 05/24/2025 9:02 AM CDT Respiratory Rate 16 05/24/2025 9:02 AM CDT Oxygen Saturation 96% 05/24/2025 9:02 AM CDT Inhaled Oxygen Concentration - - Weight 92.3 kg (203 lb 6.4 oz) 05/24/2025 9:02 A M CDT Height 177.8 cm (5' 10) 04/05/2025 10:05 AM CDT Body Mass Index 29.18 04/05/2025 10:05 AM CDT Plan of Treatment Upcoming Encounters Date Type Department Care Team (Late st Contact Info) Description 06/14/2025 9:30 AM CDT Office Visit [facility] Oncology and Hematology - Fan [address] [place] [address] Matt Mcclelland MD [address] [place] [address] Health Maintenance Due Date Last [...] MONTHS 03/31/2023 10/01/2022 INFLUENZA VACCINE (#1) 2025 , 06/12/2022, 06/13/2021, Additional history exists ZOSTER VACCINE Completed 10/28/2023, 08/22/2023 Medical Devices Implanted Type Area Rn Telephone Triage Device Identifier Shelf Expiration Date Model / Serial / Lot Clip Hemolok Ml [id number] - Csc - [id number] Implanted:Qty : 1 on 10/18/2022 by Winston Villalpando MD at [facility] Clip Right: Lung TELEFLEX- WECK CLOSURE SYS 06/18/2026 [id number] / / [id number] Sealant Progel Pleural 4ml [id number] - [id number] Implanted:Qty : 1 on 10/18/2022 by Winston Villalpando MD at [facility] Tissue Right: Lung BARD DAVOL [id number] 12/04/2023 [id number] / / [id number] Procedures Procedure Name Priority Date/Time Associated Diagnosis Comments COMPREHENSIVE METABOLIC PANEL Routine 05/31/2025 1:50 PM CDT COMPREHENSIVE METABOLIC PANEL Routine 05/24/2025 12:53 PM CDT COMPREHENSIVE METABOLIC PANEL Routine 05/17/2025 10:34 AM CDT PATHOLOGY Pathology 04/05/2025 11:59 AM CDT CYTOLOGY, NON GYNE Pathology 04/05/2025 11 :59 AM CDT RESPIRATORY CULTURE WITH GRAM STAIN Routine 04/05/2025 11:59 AM CDT POC GLUCOSE Routine 04/05/2025 10:38 AM CDT PET BONE IMG W CT SKL BSE MID THG Routine 03/16/2025 1:15 PM CDT HEMOGLOBIN A1C Routine 10/01/2022 12:33 PM GRID TRIMMER Benign hypertension Cancer of lower lobe of right lung (CMS/HCC) Type 2 diabetes mellitus without complication, with long-term current use of insulin (CMS/HCC) from Last 3 Months or Most Recently Relevant to Health Maintenance Results * COMPREHENSIVE METABOLIC PANEL (05/31/2025 1:50 PM CDT) Only the most recent of3 resultswithin the time period is included. Blood us Matt Mcclelland MD CHEMISTRY ORDERABLES Final Resu lt * PATHOLOGY (04/05/2025 11:59 AM CDT) CASE REPORT Surgical Pathology Report Case: [id number] Authorizing Provider: Jean Ray MD Collected: 04/05/2025 11:59 AM Ordering Location: [facility] [place] Received: 04/05/2025 12:30 PM [facility] Pathologist: Sierra Ybarra MD Specimen: Lung, Bronchus intermedius 9:06 AM CDT [facility] FINAL DIAGNOSIS Lung, bronchus intermedius, endobronchial biopsy: - Squamous cell carcinoma - PD-L1/molecular studies will be performed upon request - See corresponding cytology [id number] 9:06 AM CDT [facility] at 0906 CDT GROSS DESCRIPTION Received in one container labeled Anthony Giovanny Bonilla and bronchus intermedius biopsy are 5 pieces of pink-perez tissue ranging from 0.1 to 0.2 cm in greatest dimension. All are submitted in cassettes A1 and A2. [facility] 5 9:06 AM [facility] MICROSCOPIC DESCRIPTION The slides are labeled [id number] and Chad Anthony. Sections from the bronchus intermedius biopsy show fragments of squamous cell carcinoma in nests. Immunostains are performed on block A2 including p40, p63, CK5/6, pancytokeratin, and TTF-1. The tumor is positive for CK5/6, pancytokeratin, p63 and p40. TTF-1 is negative in the tumor although highlights a few cells basally located cells consistent with occasional underlying bronchial epithelial cells. 5 9:06 AM [facility] CLINICAL INFORMATION No Dx found. 5 9:06 AM [facility] COMMENT Special stain, immunohistochemical, and/or in situ hybridization results are interpreted with controls that demonstrate appropriate staining reactions. Note on use of immunohistochemistry reagents and in situ hybridization probes: These tests were developed and their performance characteristics determined by [facility], Department of Laboratory Medicine. It has not been cleared or approved by the U.S. Food and Drug Administration. The FDA has determined that such clearance or approval is not necessary. The test is used for clinical purposes. It should not be regarded as investigational or for research. This laboratory is certified to perform high complexity testing. Frozen section/operating room consultation, gross examination and dissection, and case sign out may have been performed in part or completely in the following laboratories: [facility], CLIA #[id number] [address] [place] [address] [facility], [place] #[id number] [address] [place] [address] [facility]/[place], [place] #[id number] [address] [place] [address] This report was created with the [employer] voice-activated dictation system. Inherent to this system is the possibility of syntax, grammar, punctuation and other errors that could impact the interpretation of the report. If there are interpretative questions about aspects of this report, please contact the performing pathologist. 9:06 AM CDT [facility] Tissue SPECIMEN FROM LUNG / Unknown Collection / Unknown 04/05/2025 11:59 AM CDT 04/05/2025 12:30 PM CDT Jean Ray MD PATHOLOGY/CYTOLOGY ORDERABLES F inal Result Performing Organization Address [facility] Co de Phone Number [facility] CLIA# [id number] [address] [place] [place] [address] * RESPIRATORY CULTURE WITH GRAM STAIN (04/05/2025 11:59 AM CDT) CULTURE No pathogens isolated. Normal respiratory doris present. 04/07/2025 11:48 AM CDT [facility] GRAM STAIN Non diagnostic pattern 04/07/2025 11:48 AM CDT [facility] GRAM STAIN 2+ (Few) Polymorphonuclear WBC 04/07/2025 11:48 AM CDT [facility] Washings (Lung, bilateral) Collection / Unknown 04/05/2025 11:59 AM CDT 04/05/2025 12:48 PM CDT Result [facility] Jean Ray MD MICROBIOLOGY - GENERAL ORDERABL ES Final Result Performing Organization Address [facility] Co de Phone Number [facility] [id number] [address] [place] [address] * CYTOLOGY, NON GYNE (04/05/2025 11:59 AM CDT) CASE REPORT Medical Cytology Report Case: [id number] Authorizing Provider: Jean Ray MD Collected: 04/05/2025 11:59 AM Ordering Location: [facility] [place] Received: 04/05/2025 12:38 PM [facility] Pathologist: Sierra Ybarra MD Specimens: A) - Fine needle aspirate, lymph node, Station 7 B) - Fine needle aspirate, lymph node, Station 10R 5 9:07 AM [facility] FINAL DIAGNOSIS Lymph node, station 7, EBUS FNA, smears, ThinPrep and cell block: - Metastatic squamous cell carcinoma - See corresponding biopsy [id number] - PD-L1/molecular studies will be performed upon request Lymph node, station 10R, EBUS FNA, smears, ThinPrep and cell block: - Metastatic squamous cell carcinoma 5 9:07 AM [facility] at 0907 T GROSS DESCRIPTION Received are 2 containers all labeled Anthony Bonilla. The first specimen (A) is additionally labeled FNA station 7. It consists of 2 direct smears (1 Pap, 1 Diff-Quik stained) and a container of CytoLyt that is made into a ThinPrep and cell block. The second specimen (B) is additionally labeled FNA station 10R. It consists of 2 direct smears (1 Pap, 1 Diff-Quik stained) and a container of CytoLyt that is made into a ThinPrep and cell block. 5 9:07 AM [facility] MICROSCOPIC DESCRIPTION The slides are labeled [id number] and Anthony Bonilla. The immediate assessments are confirmed. The smears, ThinPrep and cell block from the station 7 lymph node fine-needle aspiration show numerous malignant cells with hyperchromatic enlarged nuclei and variable amounts of cytoplasm. There is keratinization of the cytoplasm. Immunostains are performed on the cellblock including p40, CK5/6, pancytokeratin, TTF-1 and Napsin A. Tumor cells are strongly positive for CK5/6, pancytokeratin and p40. TTF-1 and Napsin A are negative. The findings are consistent with squamous cell carcinoma. The ThinPrep, smears and cell block from the 10R lymph node fine-needle aspiration are similar to the station 7 lymph node fine-needle aspiration with numerous malignant cells with enlarged irregular hyperchromatic nuclei are single and in cohesive groups. The cells have eosinophilic cytoplasm consistent with keratinization. 5 9:07 AM [facility] IMMEDIATE ASSESSMENT Lymph node, station 7, fine-needle aspiration: - Pass #1 satisfactory Lymph node, station 10R, fine-needle aspiration: - Pass #2 satisfactory JOSELUIS Olea 5 9:07 AM CDT [facility] CLINICAL INFORMATION Station 7 and 10R No Dx found. 5 9:07 AM CDT [facility] COMMENT Special stain, immunohistochemical, and/or in situ hybridization results are interpreted with controls that demonstrate appropriate staining reactions. Note on use of immunohistochemistry reagents and in situ hybridization probes: These tests were developed and their performance characteristics determined by [facility] Department of Laboratory Medicine. It has not been cleared or approved by the U.S. Food and Drug Administration. The FDA has determined that such clearance or approval is not necessary. The test is used for clinical purposes. It should not be regarded as investigational or for research. This laboratory is certified to perform high complexity testing. Cases may have been signed out in part or completely in the following laboratories: [facility], CLIA #[id number] [address] [place] [id number] [place] [address]/[place], CLIA #[id number] [address] [place] [address]. 9:07 AM CDT [facility] Body fluid SPECIMEN FROM LYMPH NODE OBTAINED BY FINE NEEDLE ASPIRATION BIOPSY / Unknown Collection / Unknown 04/05/2025 11:59 AM CDT 04/05/2025 12:38 PM CDT Comment:Station 7 and 10R Body fluid specimen (specimen) SPECIMEN FROM LYMPH NODE OBTAINED BY FINE NEEDLE ASPIRATION BIOPSY / Unknown 04/05/2025 11:59 AM CDT 04/05/2025 12:38 PM CDT us Jean Ray MD PATHOLOGY/CYTOLOGY ORDERABLES F inal Result [facility] CLIA# [id number] [address] [place] [address] [id number] * (ABNORMAL) POC GLUCOSE (04/05/2025 10:38 AM CDT) GLUCOSE POC 119(H) 74 - 99 mg/dL 04/05/2025 10:38 AM CDT [facility] SPECIMEN SOURCE, GLUCOSE POC Whole Blood 04/05/2025 10:38 AM CDT [facility] Blood, whole 04/05/2025 10:3 8 AM CDT 04/05/2025 1:00 PM CDT Matt Mcclelland MD POINT OF CARE TESTING Final Res ult [facility] CLIA# [id number] [address] [place] [address] * PET BONE IMG W CT SKB MD (03/16/2025 1:15 PM CDT) Anatomical Region Laterality Modality Positron Emissio n Tomography (PET) Matt Mcclelland MD PE ORDERABLES Final Result * (ABNORMAL) HEMOGLOBIN A1C (10/01/2022 12:33 PM GRID TRIMMER) Pathologist [facility] HEMOGLOBIN A1C 6.8(H) <5.7 % 10/01/2022 2:13 PM GRID TRIMMER [facility] EST. AVG GLUCOSE, A1C 148 mg/dL 10/01/2022 2:13 PM GRID TRIMMER [facility] Blood Venipuncture / Unknown 10/01/2022 12:33 PM GRID TRIMMER 10/01/2022 1:45 PM GRID TRIMMER Narrative [facility] - 10/01/2022 2:13 PM GRID TRIMMER HGB A1C INTERPRETATION NORMAL: <5.7% PRE-DIABETES: 5.7 - 6.4% DIABETES: 6.5% OR GREATER Winston Villalpando MD CHEMISTRY ORDERABLES Final Res ult [facility] CLIA# [id number] [address] [address] from Last 3 Months or Most Recently Relevant to Health Maintenance Insurance BCBS BLUE ACCESS/TRUE BLUE PPO RX [employer] RX Member Subscriber Plan / Payer (Ef fective for All Dates) Name:Anthony Bonilla Relation to Subscriber:Self Name:Anthony Bonilla Subscriber ID:Not on file Payer ID:Not on file Group ID:[id number] Type:RX Commercial Address: [address] Advance Directives For more information, please contact: [phone] * Full Code (Latest Code Status on File) Date Activated Date Inactivated Comments 10/18/2022 5:47 PM 10/21/2022 7:26 PM * Full Code Date Activated Date Inactivated Comments 10/18/2022 5:47 AM 10/18/2022 5:47 PM Care Teams Language Pathologist Relationship Specialty Start Date End Date Charlette Chan MD PCP - General Internal Medicine 08/28/22
== END 2025-06-07 15:34 | disposition home or self-care (01) ==
PROVIDERS: PCP Internal Medicine; Visit Provider Radiology Radiation Oncology
DX: C34.91 Malignant neoplasm of unspecified part of right bronchus or lung (principal)
CPT/HCPCS: 70553; A9577

== ENCOUNTER 2025-06-14 09:33 | Observation (INO) | payer BC, SELFPAY ==
[2025-06-14] VITALS (10 sets, daily range): BP systolic 111–141; BP diastolic 61–92; PULSE 92–136; RESP 10–20; TEMP 36.4–36.5; O2SAT 98–100; BMI 26.6
--- NOTE | ~2025-06-14 | XR_ITS ---
EXAMINATION: XR chest 1V portable COMPARISON: No comparisons available. HISTORY: chest pain, high heart rate, HX OF SQUAMOUS CA IN LUNG FINDINGS: Small right basilar infiltrate and effusion. No pneumothorax. Heart is normal size. Mediastinal and hilar contours are within normal limits. Bony thorax no acute abnormality. Miscellaneous: Right Mediport terminates in the SVC. Impression: Small right lower lobe pneumonia Reviewed, dictated and finalized at location P. Impression: Small right lower lobe pneumonia
--- NOTE | ~2025-06-14 | CT_ITS ---
EXAMINATION: CTA chest PE protocol DATE: 06/14/2025 11:07 INDICATION: Chest pain. Lung cancer. TECHNIQUE: Computed tomography angiography (CTA) of the chest was performed with 100 mL Omnipaque-350 intravenous contrast timed to evaluate the pulmonary arteries. Coronal maximum intensity projection 3D-reconstructions were created by the technologist. Automated exposure control and iterative reconstruction technique were employed. The dose-length product was 409.95 mGy-cm. COMPARISON: 03/04/2025 FINDINGS: There is moderate emphysema. Calcified right lung nodules and calcified right hilar lymph nodes are consistent with old granulomatous disease. There are changes of right lower lobectomy. There is right hilar and mediastinal lymphadenopathy. For example, a subcarinal node measures 4.6 x 3.2 cm. Again seen is right-sided pleural thickening. No pleural effusion. The heart size is normal. There is no pulmonary embolus. There is a right subclavian port with tip at superior cavoatrial junction. There is moderate thoracic spondylosis. Thoracic levoscoliosis is noted. There is mild chronic anterior wedging of multiple thoracic vertebral bodies. There is a compression fracture of T12 with less than 1/5 loss of height. IMPRESSION: 1. No pulmonary embolus. 2. Stable right hilar and mediastinal lymphadenopathy, consistent with metastatic disease. 3. Moderate emphysema. Right lower lobectomy. 4. T12 compression fracture, new from 03/04/2025, likely acute or subacute. Reviewed, dictated and finalized at location E. IMPRESSION: 1. No pulmonary embolus. 2. Stable right hilar and mediastinal lymphadenopathy, consistent with metastat ic disease. 3. Moderate emphysema. Right lower lobectomy. 4. T12 compression fracture, new from 03/04/2025, likely acute or subacute.
--- OUTSIDE RECORDS SUMMARY | 2025-06-14 09:30 | XMS_ITS | Encounter Summary ---
Author Organization [facility] [employer] [facility] Address [address] [place] [address] Care Team Providers Care Scrum Project Manager Name Role Phone Charlette Chan MD Primary Care Provider Encounter Details Date Type Department Care Team (Late st Contact Info) Description 06/14/2025 9:30 AM CDT Office Visit [facility] Oncology and Hematology - Fan [address] [facility] [address] [place] [address] Matt Mcclelland MD [address] [facility] [address] [place] [address] Malignant neoplasm of lower lobe of right lung (Primary Dx) Social History Tobacco Use Types Packs/Day Years [...] on file Legal Sex Male 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 Gender Identity Not on file Sexual Orientation Not on file documented as of this encounter Last Filed Vital Signs Vital Sign Reading Time Taken Comments Blood Pressure 111/82 06/14/2025 9:12 AM CDT Pulse 141 06/14/2025 9:12 AM CDT Temperature 36.1 C (96.9 F) 06/14/2025 9:10 AM CDT Respiratory Rate 16 06/14/2025 9:10 AM CDT Oxygen Saturation 95% 06/14/2025 9:10 AM CDT Inhaled Oxygen Concentration - - Weight 88.3 kg (194 lb 9.6 oz) 06/14/2025 9:10 A M CDT Height - - Body Mass Index 27.92 04/05/2025 10:05 AM CDT documented in this encounter Plan of Treatment Upcoming Encounters Date Type Department Care Team (Late st Contact Info) Description 06/28/2025 9:15 AM GOLD MINER BLASTING Office Visit [facility] Oncology and Hematology [facility] [address] [facility] [address] [place] [phone] Matt Mcclelland MD [address] [facility] [address] [place] [address] Scheduled Orders Name Type Priority Associated Diagnoses Orde r Schedule BASIC METABOLIC PANEL Lab Stat Malignant neoplasm of lower lobe of right lung Expected: 06/28/2025, Expires: 06/14/2026 CBC WITH DIFFERENTIAL Lab Stat Malignant neoplasm of lower lobe of right lung Expected: 06/28/2025, Expires: 06/14/2026 documented as of this encounter Visit Diagnoses Diagnosis Malignant neoplasm of lower lobe of right lung- Primary documented in this encounter Care Teams Scrum Project Manager Relationship Specialty Start Date End Date Charlette Chan MD PCP - General Internal Medicine 08/28/22 documented as of this encounter
--- NOTE | 2025-06-14 09:35 | ECG_ITS ---
Test Date: 2025-06-14 09:41:03 Measurements Intervals [place] Rate: 132 P: 16 CO: 145 QRS: 60 QRSD: 80 T: 73 QT: 286 QTc: 424 Interpretive Statements SINUS TACHYCARDIA BASELINE ARTIFACT- I, III, AVR, AVL, AVF ABNORMAL ECG Compared to ECG 03/04/2025 13:46:01 HEART RATE HAS INCREASED Electronically Signed On 06-14-2025 09:48:29 CDT by Lukasz Katz D.O.
[2025-06-14 10:03] LABS: Hematocrit 41.8 % (42.0-52.0); Hemoglobin 14.1 g/dL (14.0-18.0); Immature Granulocyte Percent A 0.6 % (0-0.5); Lymphocytes Absolute Auto 0.32 K/mm3 (0.9-3.2); Mean Corpuscular HGB Conc 33.7 g/dl (32-36); Mean Corpuscular Hemoglobin 27.5 pg (26-34); Mean Corpuscular Volume 81.6 fl (80-100); Nucleated Red Blood Cells Absolute Auto 0.000 K/mm3 (0.0-0.012); Nucleated Red Blood Cells Perc 0.0 % (0.0-0.2); Platelet Count Result 112 k/mm3 (150-375); Red Blood Count 5.12 M/mm3 (4.6-6.20); White Blood Count 5.1 K/mm3 (4.5-10.0)
[2025-06-14] MEDS: IPRATROPIUM 0.5 MG/ALBUTEROL SULFATE 2.5 MG (BASE) AMPUL.NEB 3 ML INHALATION (10:04)
[2025-06-14 10:14] LABS: Alanine Aminotransferase 17 U/L (6-50); Albumin Level 4.2 g/dL (3.5-5.1); Alkaline Phosphatase 94 U/L (38-126); Anion Gap 8 mmol/L (4-12); Aspartate Amino Transferase 20 U/L (17-59); Bilirubin,Total 1.3 mg/dL (0.2-1.3); Blood Urea Nitrogen 17 mg/dL (9-20); Calcium 9.2 mg/dL (8.4-10.2); Carbon Dioxide 27 mmol/L (22-30); Chloride 98 mmol/L (98-107); Estimated CRCL calculation 88 ml/min; Estimated Glomerular Filt Rate > 60; Glucose 254 mg/dL (65-110); Lipase 60 U/L (23-300); Potassium 4.3 mmol/L (3.4-5.0); Sodium 133 mmol/L (137-145); Total Protein 7.3 g/dL (6.3-8.2)
[2025-06-14 10:15] LABS: INR 1.0; Partial Thromboplastin Time 27.6 Seconds (22.3-36.8); Prothrombin Time 13.3 Seconds (11.1-14.7)
[2025-06-14] MEDS: SODIUM CHLORIDE 0.9% IV 1,000 ML 999 ML IV CONT ×2 (10:18→11:16)
--- OUTSIDE RECORDS SUMMARY | 2025-06-14 10:25 | XMS_ITS | Clinical Summary ---
Author Organization [facility] Jerson Martinez Address [address] [place] [address] Care Team Providers Care Dough Molder Hand Name Role Phone Charlette Chan MD Primary [...] mouth 2 times daily. 60 Tablet 1 5 Active methylPREDNISol one (MEDROL DOSPACK) 4 mg Tablets, Dose Pack Use as directed 21 Tablet 5 Active sucralfate (Carafate) 100 mg/mL suspension Take 10 mL (1 Gram) by mouth every 6 hours. 414 mL 1 5 Active LORazepam (ATIVAN) 0.5 mg tabletIndicatio ns:Claustrophob ia Take 1 Tablet (0.5 mg) by mouth one time for 1 dose. Take prior to MRI for claustrophob ia. 1 Tablet 5 05/18/20 25 Discontinue d(Alternate therapy prescribed) ALPRAZolam (XANAX) 0.25 mg tabletIndicatio ns:Anxiety state Take 4 Tablets (1 mg) by mouth nightly as needed for Anxiety. 30 Tablet 5 05/24/20 25 Discontinue d(Alternate therapy prescribed) Active Problems Problem Noted Date Diagnosed Date Lung mass 04/05/2025 Benign hypertension 09/12/2022 Cancer of lower lobe of right lung 09/12/2022 Type 2 diabetes mellitus wit hout complication, with long-term current use of insulin 09/12/2022 Encounters Date Type Department Care Team Description 06/14/2025 9:30 AM CDT Office Visit [facility] Oncology and Hematology - [address] [place] [address] Matt Mcclelland MD Malignant neoplasm of lower lobe of right lung (Primary Dx) 06/08/2025 Orders Only [facility] Oncology and Hematology - [address] [place] [address] Matt Mcclelland MD 06/07/2025 Orders Only [facility] Oncology and Hematology - [address] [place] [address] Matt Mcclelland MD Hilar mass; Benign hypertension 06/04/2025 Chart Note [facility] Oncology Patient Navigation [address] [place] [address] Elis Russo RN Nurse Navigation (Follow up) 05/31/2025 Orders Only [facility] Oncology and Hematology - [address] [place] [id number] Matt Mcclelland MD 05/25/2025 Abstract [facility] Oncology and Hematology - [place] [address] [place] [address] Matt Mcclelland MD 05/24/2025 9:00 AM CDT Office Visit [facility] Oncology and Hematology - [place] [address] [place] [address] Matt Mcclelland MD Malignant neoplasm of lower lobe of right lung (Primary Dx); Hilar mass 05/24/2025 Orders Only [facility] Oncology and Hematology - [place] [address] [place] [address] Mtat Mcclelland MD Benign hypertension (Primary Dx) 05/21/2025 Chart Note [facility] Oncology Patient Navigation [address] [place] [address] Elis Russo RN Nurse Navigation (Follow up) 05/18/2025 Orders Only [facility] Oncology and Hematology [facility] [address] [place] [address] Matt Mcclelland MD Anxiety state (Primary Dx) 05/14/2025 Orders Only [facility] Oncology and Hematology - [address] [place] [address] Matt Mcclelland MD Hilar mass (Primary Dx) 05/13/2025 Refill [facility] Oncology and Hematology - [address] [place] [address] Matt Mcclelland MD 05/05/2025 Chart Note [facility] Oncology Patient Navigation [address] [place] [address] Elis Russo, ABRAHAM Nurse Navigation (Follow up) 04/21/2025 Orders Only [facility] Radiation Therapy [address] [place] [address] Esteban Vail MD Claustrophobia (Primary Dx) 04/20/2025 External Device Data STL ABSTRACTION Provider, Abstract 04/20/2025 External Device Data STL ABSTRACTION Provider, Abstract 04/20/2025 Abstract [facility] Oncology and Hematology - [address] [place] [address] Matt Mcclelland MD 04/14/2025 Chart Note [facility] Oncology Patient Navigation [address] [place] [address] Elis Rsuso, ABRAHAM Nurse Navigation (Follow up) 04/09/2025 Chart Note [facility] Oncology Patient Navigation [address] [place] [address] Elis Russo, ABRAHAM Nurse Navigation (Establish care) 04/07/2025 Results Follow-Up [facility] [address] [place] [address] Jean Ray MD CYTOLOGY, NON GYNE, PATHOLOGY, RESPIRATORY CULTURE WITH GRAM STAIN 04/06/2025 External Device Data STL ABSTRACTION Provider, Abstract 04/06/2025 External Device Data ST[facility] ABSTRACTION Provider, Abstract 04/05/2025 9:49 AM CDT - 04/05/2025 2:15 PM CDT Hospital Encounter [facility] Interventional Care [address] [place] [address] Matt Mcclelland MD Lung mass Discharge Disposition: Home or Self Care 04/05/2025 Travel 03/30/2025 3:15 PM CDT Office Visit [facility] [address] [facility] [address] [place] [address] Jean Ray MD Lymphadenopathy (Primary Dx); History of tobacco use; Hemoptysis 03/30/2025 Telephone [facility] [address] [place] [address] Jean Ray MD Procedure 03/25/2025 Telephone [facility] [address] [place] [address] Abimael Stuart MD Wants Appointment 03/24/2025 External Device Data STL ABSTRACTION Provider, Abstract 03/22/2025 1:00 PM CDT Office Visit [facility] Oncology and Hematology - [address] [place] [address] Matt Mcclelland MD Hilar mass (Primary Dx); Malignant neoplasm of lower lobe of right lung (CMS/HCC) 03/19/2025 Orders Only [facility] Oncology and Hematology - [address] [place] [address] Matt Mcclelland MD from Last [...] on file 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 Gender Identity Not on file Sexual Orientation [...] oz) 06/14/2025 9:10 A M CDT Height 177.8 cm (5' 10) 04/05/2025 10:05 AM CDT Body Mass Index 27.92 04/05/2025 10:05 AM CDT Plan of Treatment Upcoming Encounters Date Type Department Care Team (Late st Contact Info) Description 06/28/2025 9:15 AM CARTRIDGE LOADING OPERATOR Office Visit [facility] Oncology and Hematology - [place] [address] [facility] [address] [place] [address] Matt Mcclelland MD [address] [facility] [address] [place] [address] Health Maintenance Due Date Last [...] DIABETES HBA1C Q 6 MONTHS 03/31/2023 10/01/2022 Preventative Visit- Commercial 08/19/2024 INFLUENZA VACCINE (#1) 2025 3, 06/12/2022, 06/13/2021, Additional history exists ZOSTER VACCINE Completed 10/28/2023, 08/22/2023 Medical Devices Implanted Type Area Table Cover Folder Device Identifier Shelf Expiration Date Model / Serial / Lot Clip Rakel Ml [id number] - Csc - [id number] Implanted:Qty : 1 on 10/18/2022 by Winston Villalpando MD at [facility] Clip Right: Lung TELEFLEX- WECK CLOSURE SYS 06/18/2026 [id number] / / [id number] Sealant Progel Pleural 4ml [id number] - [id number] Implanted:Qty : 1 on 10/18/2022 by Winston Villalpando MD at [facility] Tissue Right: Lung BARD DAVOL [id number] 12/04/2023 [id number] / / [id number] Procedures Procedure Name Priority Date/Time Associated Diagnosis Comments COMPREHENSIVE METABOLIC PANEL Routine 06/07/2025 1:40 PM CDT COMPREHENSIVE METABOLIC PANEL Routine 05/31/2025 1:50 PM [...] CDT HEMOGLOBIN A1C Routine 10/01/2022 12:33 PM CARTRIDGE LOADING OPERATOR Benign hypertension Cancer of lower lobe of right lung (CMS/HCC) Type 2 diabetes mellitus without complication, with long-term current use of insulin (CMS/HCC) from Last 3 Months or Most Recently Relevant to Health Maintenance Results * COMPREHENSIVE METABOLIC PANEL (06/07/2025 1:40 PM CDT) Only the most recent of4 resultswithin the time period is included. Blood Matt Mcclelland MD CHEMISTRY ORDERABLES Final Resu lt * PATHOLOGY (04/05/2025 11:59 AM CDT) CASE REPORT Surgical Pathology Report Case: [id number] Authorizing Provider: Jean Ray MD Collected: 04/05/2025 11:59 AM Ordering Location: [facility] Received: 04/05/2025 12:30 PM [facility] Pathologist: Sierra Ybarra MD Specimen: Lung, Bronchus intermedius 9:06 AM T [facility] FINAL DIAGNOSIS Lung, bronchus intermedius, endobronchial biopsy: - Squamous cell carcinoma - PD-L1/molecular studies will be performed upon request - See corresponding cytology [id number] 9:06 AM [facility] at 0906 CDT GROSS DESCRIPTION Received in one container labeled Anthony Giovanny Chad and bronchus intermedius biopsy are 5 pieces of pink-perez tissue ranging from 0.1 to 0.2 cm in greatest dimension. All are submitted in cassettes A1 and A2. [facility] 9:06 AM [facility] MICROSCOPIC DESCRIPTION The slides are labeled [id number] and Anthony Bonilla. Sections from the bronchus intermedius biopsy show fragments of squamous cell carcinoma in nests. Immunostains are performed on block A2 including p40, p63, CK5/6, pancytokeratin, and TTF-1. The tumor is positive for CK5/6, pancytokeratin, p63 and p40. TTF-1 is negative in the tumor although highlights a few cells basally located cells consistent with occasional underlying bronchial epithelial cells. 9:06 AM [facility] CLINICAL INFORMATION No Dx found. 9:06 AM [facility] COMMENT Special stain, immunohistochemical, and/or in situ hybridization results are interpreted with controls that demonstrate appropriate staining reactions. Note on use of immunohistochemistry reagents and in situ hybridization probes: These tests were developed and their performance characteristics determined by [facility], Department of Laboratory Medicine. It has not [...] part or completely in the following laboratories: [facility], CLIA #[id number] [address] [place] [address] [facility], [place] #[id number] [address] [place] [address] [facility], CLIA #[id number] [address] [place] [address] This report was created with the [employer] voice-activated dictation system. Inherent to this system is the possibility of syntax, grammar, punctuation and other errors that could impact the interpretation of the report. If there are interpretative questions about aspects of this report, please contact the performing pathologist. 9:06 AM CDT [facility] Tissue SPECIMEN FROM LUNG / Unknown Collection / Unknown 04/05/2025 11:59 AM CDT 04/05/2025 12:30 PM CDT Jean Ray MD PATHOLOGY/CYTOLOGY ORDERABLES F inal Result [id number] [address] [facility] [place] [address] * RESPIRATORY CULTURE WITH GRAM STAIN (04/05/2025 11:59 AM CDT) CULTURE No pathogens isolated. Normal respiratory doris present. 04/07/2025 11:48 AM CDT [facility] GRAM STAIN Non diagnostic pattern 04/07/2025 11:48 AM CDT [facility] GRAM STAIN 2+ (Few) Polymorphonuclear WBC 04/07/2025 11:48 AM CDT [facility] Washings (Lung, bilateral) Collection / Unknown 04/05/2025 11:59 AM CDT 04/05/2025 12:48 PM CDT us Jean Ray MD MICROBIOLOGY - GENERAL ORDERABL ES Final Result [facility]# [id number] [address] [place] [address] * CYTOLOGY, NON GYNE (04/05/2025 11:59 AM CDT) CASE REPORT Medical Cytology Report Case: [id number] Authorizing Provider: Jean Rya MD Collected: 04/05/2025 11:59 AM Ordering Location: [facility] Received: 04/05/2025 12:38 PM [facility] Interventional Care Pathologist: Sierra Ybarra MD Specimens: A) - Fine needle aspirate, lymph node, Station 7 B) - Fine needle aspirate, lymph node, Station 10R 9:07 AM CDT [facility] FINAL DIAGNOSIS Lymph node, station 7, EBUS FNA, smears, ThinPrep and cell block: - Metastatic squamous cell carcinoma - See corresponding biopsy [id number] - PD-L1/molecular studies will be performed upon request Lymph node, station 10R, EBUS FNA, smears, ThinPrep and cell block: - Metastatic squamous cell carcinoma 9:07 AM CDT [facility] at 0907 CDT GROSS DESCRIPTION Received are 2 containers all [...] made into a ThinPrep and cell block. 9:07 AM CDT [facility] MICROSCOPIC DESCRIPTION The slides are labeled [id number] and Anthony Bonilla. The immediate assessments are [...] cytoplasm consistent with keratinization. 5 9:07 AM [facility] IMMEDIATE ASSESSMENT Lymph node, station 7, fine-needle aspiration: - Pass #1 satisfactory Lymph node, station 10R, fine-needle aspiration: - Pass #2 satisfactory JOSELUIS Olea 5 9:07 AM [facility] CLINICAL INFORMATION Station 7 and 10R No Dx found. 5 9:07 AM [facility] COMMENT Special stain, immunohistochemical, and/or in situ hybridization results are interpreted with controls that demonstrate appropriate staining reactions. Note on use of immunohistochemistry reagents and in situ hybridization probes: These tests were developed and their performance characteristics determined by [facility], Department of Laboratory Medicine. It has not [...] part or completely in the following laboratories: [facility], CLIA #[id number] [address] [place] [address] [facility], CLIA #[id number] [address] [place] [address]. 5 9:07 AM [facility] Body fluid SPECIMEN FROM LYMPH NODE OBTAINED BY FINE NEEDLE ASPIRATION BIOPSY / Unknown Collection / Unknown 04/05/2025 11:59 AM CDT 04/05/2025 12:38 PM CDT Comment:Station 7 and 10R Body fluid specimen (specimen) SPECIMEN FROM LYMPH NODE OBTAINED BY FINE NEEDLE ASPIRATION BIOPSY / Unknown 04/05/2025 11:59 AM CDT 04/05/2025 12:38 PM CDT Jean Ray MD PATHOLOGY/CYTOLOGY ORDERABLES F inal Result Performing Organization Address [facility]/ZIP Co de Phone Number [facility] [id number] [address] [place] [address] * (ABNORMAL) POC GLUCOSE (04/05/2025 10:38 AM CDT) GLUCOSE POC 119(H) 74 - 99 mg/dL 04/05/2025 10:38 AM CDT [facility] [employer] [facility] SPECIMEN SOURCE, GLUCOSE POC Whole Blood 04/05/2025 10:38 AM CDT [facility] [employer] [facility] Blood, whole 04/05/2025 10:3 8 AM CDT 04/05/2025 1:00 PM CDT Matt Mcclelland MD POINT OF CARE TESTING Final Res ult Performing Organization Address [facility]/ZIP Co de Phone Number [facility] [employer] [facility]# [id number] [address] [place] [address] * PET BONE IMG W CT SKB MD (03/16/2025 1:15 PM CDT) Anatomical Region Laterality Modality Positron Emissio n Tomography (PET) Matt Mcclelland MD PE ORDERABLES Final Result * (ABNORMAL) HEMOGLOBIN A1C (10/01/2022 12:33 PM CARTRIDGE LOADING OPERATOR) HEMOGLOBIN A1C 6.8(H) <5.7 % 10/01/2022 2:13 PM CARTRIDGE LOADING OPERATOR [facility] EST. AVG GLUCOSE, A1C 148 mg/dL 10/01/2022 2:13 PM [facility] Blood Venipuncture / Unknown 10/01/2022 12:33 PM CARTRIDGE LOADING OPERATOR 10/01/2022 1:45 PM CARTRIDGE LOADING OPERATOR Narrative [facility] - 10/01/2022 2:13 PM CARTRIDGE LOADING OPERATOR HGB A1C INTERPRETATION NORMAL: <5.7% PRE-DIABETES: 5.7 - 6.4% DIABETES: 6.5% OR GREATER us Winston Villalpando MD CHEMISTRY ORDERABLES Final Res ult [facility] CLIA# [id number] [address] [place] [address] from Last 3 Months or Most Recently Relevant to Health Maintenance Insurance [employer] BLUE ACCESS/TRUE BLUE PPO [employer] BLUE ACCESS/TRUE BLUE PPO RX [employer] RX Member Subscriber Plan / Payer (Ef fective for All Dates) Name:Anthony Bonilla Relation to Subscriber:Self Name:Anthony Bonilla Subscriber ID:Not on file Payer ID:Not on file Group ID:[id number] Type:RX Commercial Address: [address] [place] Advance Directives For more information, please contact: [phone] * Full Code (Latest Code Status on File) Date Activated Date Inactivated Comments 10/18/2022 5:47 PM 10/21/2022 7:26 PM * Full Code Date Activated Date Inactivated Comments 10/18/2022 5:47 AM 10/18/2022 5:47 PM Care Teams Dough Molder Hand Relationship Specialty Start Date End Date Charlette Chan MD PCP - General Internal Medicine 08/28/22
--- OUTSIDE RECORDS SUMMARY | 2025-06-14 10:25 | XMS_ITS | Clinical Summary ---
Author Organization [facility] Address [address] [address] Care Team Providers Care In Flight Refueling System Repairer Name Role Phone Unavailable Primary Care Provider [...] of 2) 2021 COVID-19 Vaccine ( - 2024-2 6 season) 2025 Influenza Adult (#1) 2025 Hepatitis [...]
--- OUTSIDE RECORDS SUMMARY | 2025-06-14 10:25 | XMS_ITS ---
Author Organization [facility] Address [address] [place] [address] Care Team Providers Care Cota Name Role Phone Magda Chan MD Primary Care Provide r Uriel Black MD Unavailable [phone] Active Problems Problem Noted Date Diagnosed [...]
--- OUTSIDE RECORDS SUMMARY | 2025-06-14 10:25 | XMS_ITS | Clinical Summary ---
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 Gender Identity Not on file Sexual Orientation Not on file Obstetrics History Last Filed Vital Signs Vital Sign Reading Time Taken Comments Blood Pressure 122/58 09/22/2024 3:25 PM JOB [employer]ELOPER [employer] Pulse 103 09/22/2024 3:25 PM JOB DEVELOPER [employer] Temperature 36.7 C (98.1 F) 08/06/2022 11:23 AM JOB DEVELOPER [employer] Respiratory Rate 18 08/06/2022 11:23 AM JOB DEVELOPER FOR [employer] Oxygen Saturation 96% 08/06/2022 11:23 AM JOB DEVELOPER [employer] Inhaled Oxygen Concentration - - Weight 95.3 kg (210 lb) 09/22/2024 3:25 PM JOB DEVELOPER [employer] Height 172.7 cm (5' 8) 08/06/2022 11:23 AM JOB DEVELOPER FOR [employer] ADULTS Body Mass Index 31.93 08/06/2022 11:23 AM JOB DEVELOPER FOR [employer] ADULTS Plan of Treatment Health Maintenance Due Date [...] exists Zoster Vaccine Completed 10/28/2023, 08/22/2023 Insurance [facility] CHO[facility] PL[facility] H[facility]/PPO Address: [address] [address] [place] [address] BLUE ACCESS OOS Care Teams Job Setter Relationship Specialty Start Date End Date Magda Chan MD [address] [place] [address] PCP - General Internal Medicine 06/13/22 Uriel Black MD [address] [place] [address] Radiation Oncologist Radiation Oncology 09/13/22
[2025-06-14 10:26] LABS: Troponin I < 0.012 ng/mL (0.000-0.034)
[2025-06-14 11:55] LABS: Magnesium 1.9 mg/dL (1.6-2.3)
--- NOTE | 2025-06-14 11:58 | ED.CHESTPAIN ---
HPI - Chest Pain General Chief Complaint: Chest Pain Stated Complaint: HR high, chest pain Time Seen by Provider: 06/14/25 09:43 Source: patient, RN notes reviewed and old records reviewed Mode of arrival: ambulatory Limitations: no limitations History of Present Illness HPI narrative: This is a 54 year old male with nonsmall cell lung cancer currently getting radiation who presents for evaluation of chest pain and elevated heart rate. He states that he went to see his oncologist today and he was found have elevated heart rate. He reports that he has been having chest pain with swallowing and breathing so he was referred to ER for evaluation. He reports he has chronic shortness of breath but it is not any worse than normal. He states that his doctors believe his chest pain is related to his radiation treatment. He reports dehydration and poor appetite due to pain with eating. He has been prescribed magic mouth wash to help with his pain. He denies vomiting or diarrhea. HE denies cough or fever. Related Data Home Medications ?Medication ?Instructions ?Recorded ?Confirmed ?Last Taken ?Type dapagliflozin propanediol 10 mg 10 mg PO DAILY 03/25/25 06/14/25 06/14/25 History tablet (Farxiga) gabapentin 600 mg tablet 600 mg PO BID 03/25/25 06/14/25 06/13/25 History semaglutide 1 mg/dose (4 mg/3 mL) 1 mg subcut WEEKLY 03/25/25 06/14/25 06/09/25 History subcutaneous pen injector (Ozempic) glimepiride 2 mg tablet 2 mg PO QPM 05/31/25 06/14/25 06/13/25 History metformin 500 mg tablet,extended 500 mg PO DAILY 05/31/25 06/14/25 06/14/25 History release 24 hr alprazolam 0.5 mg tablet 0.5 mg PO BID PRN anxiety 06/14/25 06/14/25 06/14/25 History Allergies Allergy/AdvReac Type Severity Reaction Status Date / Time No Known Allergies Allergy Verified 06/14/25 14:50 FOR[facility]LY [facility], [facility] Past Medical History Medical History (Updated 06/14/25 @ 21:14 by Sonja Cornell MD) Weight loss Odynophagia Lung cancer SALLY (obstructive sleep apnea) Asthma Diabetes mellitus Hypertension Social History Social History Smoking packs per day: 2 Smoking cigarettes per day: 40.0 Years smoked: 35 Smoking pack-years: 70.00 Smoking status: Former smoker Alcohol intake: never Substance use: current Substance use type: marijuana Lack of Transportation: No Lack of Food: Never True Current Housing: I Have Housing Concerned About Future Housing: No Difficulty Paying Gas/Electric Bills: No Difficulty Paying for Meds: No Currently Unemployed: No Education: High School Diploma/GED Difficulty w/ Childcare or Family Care: No Living arrangements: with family Gender identity (if verbalized by the patient): Male Spiritual care concerns: No Exam Const: General: cooperative, no acute distress, alert and ill appearing chronically Orientation/consciousness: patient oriented x3 HENMT: Head: normal to inspection Face and sinus: face symmetric Mouth: Yes Normal oral and palatal mucosa present, Yes lip normal and Yes moist mucous membranes Eyes: Pupils: Equal, round and reactive pupils present EOM: EOMs intact bilaterally Chest: Other: port a cath present Resp: Effort & Inspection: normal respiratory effort, able to speak in complete sentences and audible wheezes Auscultation: wheezes Cardio: Jugular venous distension: no JVD Rate: tachycardic Rhythm: regular rhythm GI: GI Palp: Yes Soft to palpation Neuro: General: patient oriented x3 Cranial nerves: Yes CN's II-XII intact bilaterally Cognition (Neuro): normal cognition Speech: normal speech Course Reevaluation(s) Reevaluation #1: I Discussed with patient plan to admit for hydration to help with his dehydration and tachycardia. Date: 06/14/25 Time: 12:15 Consultations Consultation #1: I Spoke with Dc who accepts to hospitalist service . I discussed heart rate and patient CT shows compression fracture. Date: 06/14/25 Time: 12:23 Vital Signs Vital signs: Vital Signs Temperature 97.5 F L 06/14/25 09:42 Pulse Rate 133 H 06/14/25 09:42 Respiratory Rate 18 06/14/25 09:42 Blood Pressure 141/92 H 06/14/25 09:42 Pulse Oximetry 100 06/14/25 09:42 Oxygen Delivery Room Air 06/14/25 09:42 Temperature 97.6 F 06/14/25 20:16 Pulse Rate 92 06/14/25 20:16 Respiratory Rate 20 06/14/25 20:16 Blood Pressure 111/61 06/14/25 20:16 Pulse Oximetry 98 06/14/25 20:16 Oxygen Delivery Room Air 06/14/25 11:15 MDM - Chest Pain MDM Narrative Medical decision making narrative: Patient presented with chest pain with eating and tachycardia. labs ordered to assess for sepsis. No infection found . Pain likely due to radiation. He was started on IV fluids for presumption that tachycardia is due to dehydration due to decreased PO intake. Heart improved with IV fluids. Differential Diagnosis Differential diagnosis: Likely fracture of rib, pneumothorax, stable angina, atypical chest pain, costochondritis and other (PE, radiation mediastinitis, esophagitis, mass obstruction) Medical Records Data Attestation: I reviewed the patient's medical records. Lab Data Attestation: I reviewed the patient's lab results. 06/14/25 09:58 06/14/25 09:58 Labs: Lab Results 06/14/25 06/14/25 06/14/25 Range/Units 09:58 10:15 11:26 WBC 5.1 (4.5-10.0) K/mm3 RBC 5.12 (4.6-6.20) M/mm3 Hgb 14.1 (14.0-18.0) g/dL Hct 41.8 L (42.0-52.0) % MCV 81.6 (80-100) fl MCH 27.5 (26-34) pg MCHC 33.7 (32-36) g/dl RDW 15.7 H (11.5-14.5) % Plt Count 112 L (150-375) k/mm3 MPV 7.7 (7.4-10.4) fl Immature Gran % (Auto) 0.6 H (0-0.5) % Neut % (Auto) 80.5 H (45.5-73.1) % Lymph % (Auto) 6.3 L (18.3-44.2) % [place] % (Auto) 10.6 H (2.6-8.5) % Eos % (Auto) 1.4 (0-4.4) % Baso % (Auto) 0.6 (0.2-1.2) % Lymph # (Auto) 0.32 L (0.9-3.2) K/mm3 [place] # (Auto) 0.5 (0.1-0.6) K/mm3 Eos # (Auto) 0.1 (0-0.3) K/mm3 Baso # (Auto) 0.0 (0.0-0.1) K/mm3 Abs Immat Gran (auto) 0.03 (0.00-0.031) K/mm3 Absolute Neuts (auto) 4.1 (1.3-6.7) K/mm3 Absolute Nucleated RBC 0.000 (0.0-0.012) K/mm3 Nucleated RBC % 0.0 (0.0-0.2) % PT 13.3 (11.1-14.7) Seconds INR 1.0 APTT 27.6 (22.3-36.8) Seconds Sodium 133 L (137-145) mmol/L Potassium 4.3 (3.4-5.0) mmol/L Chloride 98 (98-107) mmol/L Carbon Dioxide 27 (22-30) mmol/L Anion Gap 8 (4-12) mmol/L BUN 17 (9-20) mg/dL Creatinine 0.94 (0.7-1.3) mg/dL Estim Creat Clear Calc 88 ml/min Estimated GFR > 60 (59 - ) Glucose 254 H (65-110) mg/dL Lactic Acid 1.6 (0.7-2.0) mmol/L Calcium 9.2 (8.4-10.2) mg/dL Magnesium 1.9 (1.6-2.3) mg/dL Total Bilirubin 1.3 (0.2-1.3) mg/dL AST 20 (17-59) U/L ALT 17 (6-50) U/L Alkaline Phosphatase 94 (38-126) U/L Troponin I < 0.012 (0.000-0.034) ng/mL Total Protein 7.3 (6.3-8.2) g/dL Albumin 4.2 (3.5-5.1) g/dL Lipase 60 (23-300) U/L // Range/Units 12:43 WBC (4.5-10.0) K/mm3 RBC (4.6-6.20) M/mm3 Hgb (14.0-18.0) g/dL Hct (42.0-52.0) % MCV (80-100) fl MCH (26-34) pg MCHC (32-36) g/dl RDW (11.5-14.5) % Plt Count (150-375) k/mm3 MPV (7.4-10.4) fl Immature Gran % (Auto) (0-0.5) % Neut % (Auto) (45.5-73.1) % Lymph % (Auto) (18.3-44.2) % [place] % (Auto) (2.6-8.5) % Eos % (Auto) (0-4.4) % Baso % (Auto) (0.2-1.2) % Lymph # (Auto) (0.9-3.2) K/mm3 [place] # (Auto) (0.1-0.6) K/mm3 Eos # (Auto) (0-0.3) K/mm3 Baso # (Auto) (0.0-0.1) K/mm3 Abs Immat Gran (auto) (0.00-0.031) K/mm3 Absolute Neuts (auto) (1.3-6.7) K/mm3 Absolute Nucleated RBC (0.0-0.012) K/mm3 Nucleated RBC % (0.0-0.2) % PT (11.1-14.7) Seconds INR APTT (22.3-36.8) Seconds Sodium (137-145) mmol/L Potassium (3.4-5.0) mmol/L Chloride (98-107) mmol/L Carbon Dioxide (22-30) mmol/L Anion Gap (4-12) mmol/L BUN (9-20) mg/dL Creatinine (0.7-1.3) mg/dL Estim Creat Clear Calc ml/min Estimated GFR (59 - ) Glucose (65-110) mg/dL Lactic Acid (0.7-2.0) mmol/L Calcium (8.4-10.2) mg/dL Magnesium (1.6-2.3) mg/dL Total Bilirubin (0.2-1.3) mg/dL AST (17-59) U/L ALT (6-50) U/L Alkaline Phosphatase (38-126) U/L Troponin I < 0.012 (0.000-0.034) ng/mL Total Protein (6.3-8.2) g/dL Albumin (3.5-5.1) g/dL Lipase (23-300) U/L Imaging Data Radiologist's impression: ITS Impressions Chest X-Ray 06/14/25 10:41 Impression: Small right lower lobe pneumonia Chest CTA 06/14/25 11:10 IMPRESSION: 1. No pulmonary embolus. 2. Stable right hilar and mediastinal lymphadenopathy, consistent with metastatic disease. 3. Moderate emphysema. Right lower lobectomy. 4. T12 compression fracture, new from 03/04/2025, likely acute or subacute. ECG Data EKG #1: Attestation: I personally reviewed and interpreted this ECG as follows: ECG completion date: 06/14/25 ECG completion time: 09:41 Prior ECG tracings: available for review EKG Interpretation: tachycardia (132), sinus rhythm, no ST changes and NL axis EKG #2: Attestation: I personally reviewed and interpreted this ECG as follows: ECG completion date: 06/14/25 ECG completion time: 12:44 Prior ECG tracings: available for review EKG Interpretation: tachycardia (117), sinus rhythm, no ST changes and NL axis Discharge Plan Discharge Clinical Impression: Hypovolemia due to dehydration, Tachycardia Patient Disposition: Still a Patient Condition: Stable
--- NOTE | 2025-06-14 12:36 | ECG_ITS ---
Test Date: 2025-06-14 12:44:07 Measurements Intervals Philip Rate: 117 P: 3 MN: 145 QRS: 44 QRSD: 78 T: 68 QT: 309 QTc: 432 Interpretive Statements SINUS TACHYCARDIA BASELINE ARTIFACT- I, II, AVR, AVL ABNORMAL ECG Compared to ECG 06/14/2025 09:41:03 HEART RATE HAS DECREASED Electronically Signed On 06-14-2025 12:57:40 CDT by Lukasz Katz D.O.
--- NOTE | 2025-06-14 12:37 | PM.IMHP ---
H&P: HPI History of Present Illness Date/Time: 06/14/25 12:37 Chief Complaint: Chest pain Narrative: 54-year-old male with a past medical history of SALLY, DM 2, hypertension, lung cancer presented to the ED on 06/14/2025 with complaints of chest pain and tachycardia. Diagnosed with lung cancer initially in 2022. Status post right lobectomy/wedge resection and staged as T3 N0 M0. Did not undergo further treatments and was on surveillance. In February he presented to the ED with a cough with hemoptysis which revealed recurrence of his cancer. The patient started radiation treatment to the right hilum and mediastinum about 3 weeks ago and is also receiving concurrent chemotherapy weekly. Patient presented for his scheduled radiation and chemotherapy at his oncologist today and was directed to the emergency department due to his complaints of chest pain and his tachycardia. The pain started yesterday and is midsternal and left. It does not radiate and is worse with inspiration. He describes it as feeling like someone is holding it lobe torch to his chest. Denies fevers, chills, nausea vomiting. Patient states he has chronic shortness of breath and that he does not feel more short of breath than his usual. Patient further states he has been unable to take in much p.o. for the past week due to odynophagia. Denies dysphagia. He says even water is painful going down. Initial vital signs 141/92, HR 133, respirations 18, temp 97.5?, 100% on room air Labs reveals slight hyponatremia at 133 and hyperglycemia at 254. Troponin negative. First ECG with sinus tachycardia with rate of 132. Second EKG again shows sinus tachycardia but rate has decreased to 117. Chest x-ray with small right lower lobe pneumonia. CTA chest PE protocol does not show a PE, stable lymphadenopathy in the right hilar, moderate emphysema and right lower lobectomy. T12 compression fracture is new from 03/04/2025. Likely acute or subacute. Review of Systems Review of Systems: All systems reviewed & are unremarkable except as noted in HPI and below PMFSH Past Medical History Medical History (Updated 06/14/25 @ 18:09 by Estefania Barbosa APRN) Weight loss Odynophagia Lung cancer SALLY (obstructive sleep apnea) Asthma Diabetes mellitus Hypertension Social History Social History Smoking packs per day: 2 Smoking cigarettes per day: 40.0 Years smoked: 35 Smoking pack-years: 70.00 Smoking status: Former smoker Alcohol intake: never Substance use: current Substance use type: marijuana Lack of Transportation: No Lack of Food: Never True Current Housing: I Have Housing Concerned About Future Housing: No Difficulty Paying Gas/Electric Bills: No Difficulty Paying for Meds: No Currently Unemployed: No Education: High School Diploma/GED Difficulty w/ Childcare or Family Care: No Living arrangements: with family Gender identity (if verbalized by the patient): Male Spiritual care concerns: No Meds Home Medications and Allergies Home Medications ?Medication ?Instructions ?Recorded ?Confirmed ?Type albuterol sulfate 90 mcg/actuation 2 puff inhalation QID PRN 11/25/20 06/14/25 Rx aerosol inhaler shortness of breath or wheezing #6.7 grams dapagliflozin propanediol 10 mg 10 mg PO DAILY 03/25/25 06/14/25 History tablet (Farxiga) gabapentin 600 mg tablet 600 mg PO BID 03/25/25 06/14/25 History semaglutide 1 mg/dose (4 mg/3 mL) 1 mg subcut WEEKLY 03/25/25 06/14/25 History subcutaneous pen injector (Ozempic) glimepiride 2 mg tablet 2 mg PO QPM 05/31/25 06/14/25 History metformin 500 mg tablet,extended 500 mg PO DAILY 05/31/25 06/14/25 History release 24 hr alprazolam 0.5 mg tablet 0.5 mg PO BID PRN anxiety 06/14/25 06/14/25 History Allergies Allergy/AdvReac Type Severity Reaction Status Date / Time No Known Allergies Allergy Verified 06/14/25 14:50 Vital Signs Vital Signs - 24 hr 06/14/25 09:42 06/14/25 09:48 06/14/25 09:48 Temperature 97.5 F L Pulse Rate 133 H 133 H Respiratory Rate 18 Blood Pressure 141/92 H Pulse Oximetry 100 99 Oxygen Delivery Room Air Room Air 06/14/25 10:04 06/14/25 10:10 06/14/25 11:13 Temperature Pulse Rate 131 H 136 H 120 H Respiratory Rate 10 L 16 13 Blood Pressure 131/79 Pulse Oximetry 100 Oxygen Delivery 06/14/25 11:15 06/14/25 12:35 Temperature Pulse Rate 120 H Respiratory Rate 19 Blood Pressure 128/87 Pulse Oximetry 100 98 Oxygen Delivery Room Air H&P: Results Labs Labs: Short CBC 06/14/25 Range/Units 09:58 WBC 5.1 (4.5-10.0) K/mm3 Hgb 14.1 (14.0-18.0) g/dL Hct 41.8 L (42.0-52.0) % Plt Count 112 L (150-375) k/mm3 BMP 06/14/25 09:58 Sodium 133 L Potassium 4.3 Chloride 98 Carbon Dioxide 27 BUN 17 Creatinine 0.94 Glucose 254 H Calcium 9.2 Cardiac Enzymes 06/14/25 Range/Units 09:58 Troponin I < 0.012 (0.000-0.034) ng/mL Liver Function 06/14/25 Range/Units 09:58 Total Bilirubin 1.3 (0.2-1.3) mg/dL AST 20 (17-59) U/L ALT 17 (6-50) U/L Alkaline Phosphatase 94 (38-126) U/L Albumin 4.2 (3.5-5.1) g/dL Assessment and Plan Assessment and plan (1) Radiation-induced esophagitis: Code(s): K20.80 - Other esophagitis without bleeding Status: Acute Assessment and Plan: Patient presents with nonradiating chest pain to the left and midsternal area. Pain described as ?blow torch? like and worse with inspiration. EKG with sinus tach and no ST changes. Serial troponins have been negative. Heart rate improved with hydration. Low concern for cardiac source of chest pain.Patient further states he has been unable to take in much p.o. for the past week due to odynophagia. Denies dysphagia. He says even water is painful going down. -consult GI--> EGD planned on 06/15 -IV Protonix and Carafate -pureed Diet after EGD -pain control with acetaminophen elixir and oxycodone oral solution (2) Hypovolemia due to dehydration: Code(s): E86.1 - Hypovolemia; E86.0 - Dehydration Status: Acute Assessment and Plan: Heart rate 133 on admit. Patient has been unable to take in adequate amount of fluid for about 1 week. -2 L bolus NS given in ED -LR at 100 started on 06/14 -telemetry (3) Diabetes mellitus: Qualifiers: Diabetes mellitus complication status: with other specified complication Diabetes mellitus penitentiary insulin use: unspecified penitentiary insulin use status Diabetes mellitus type: type 2 Qualified Code(s): E11.69 - Type 2 diabetes mellitus with other specified complication Code(s): E11.9 - Type 2 diabetes mellitus without complications Status: Acute Assessment and Plan: - hypoglycemia protocol - POC blood glucose ACHS - home medication: Farxiga, glimepiride, metformin, Ozempic - correct regimen ordered: Low-dose sliding scale correctional (4) Hypertension: Qualifiers: Hypertension type: primary hypertension Qualified Code(s): I10 - Essential (primary) hypertension Code(s): I10 - Essential (primary) hypertension Status: Acute Assessment and Plan: Blood pressure 141/92 on admit. Now 120/77. Patient has not filled antihypertensives since July. Continue to monitor Plan Diet: NPO GI prophylaxis: Pantoprazole DVT prophylaxis: SCDs lines/drains: Port-A-Cath Fluids: 2 L bolus in ED. LR at 100 mL/hr started on 06/14 Code status: Full Quality VTE Prophylaxis VTE prophylaxis: mechanical ordered Hospitalist MIPS Advance Care Plan I have confirmed that the patient's Advanced Care Plan is present, code status is documented, or surrogate decision maker is listed in patient medical record.: Yes Medication Reconciliation I have utilized all available resources to obtain, update and review the patients current medications (includes all prescriptions, OTC, herbals, cannabis, and nutritional supplements).: Yes
[2025-06-14] MEDS: ONDANSETRON INJ 4 MG/2 ML VIAL IV PUSH ×2 (12:51→17:14)
[2025-06-14] MEDS: HYDROmorphone HCL INJ (*CRX) 1 MG/ML SYR 0.5 MG IV PUSH (12:53)
[2025-06-14 13:11] LABS: Troponin I < 0.012 ng/mL (0.000-0.034)
--- NOTE | 2025-06-14 14:50 | ADMGEN ---
This patient, Anthony Bonilla, was admitted to Medical Room 240-01. Patient/family oriented to hospital policies and general routines including ID bracelet, bed and alarms, visiting hours, pain management, procedures, bathroom and other care routines, personal items, smoking policy, room service/diet, and visiting hours. Information on how to activate the Rapid Response Team has been discussed. Patient/Family are encouraged to report perceived risks to care and to ask questions if they do not understand what they are told or what they should do.
[2025-06-14] MEDS: SODIUM CHLORIDE 0.9% IV 1,000 ML 125 ML IV CONT (15:03)
--- NOTE | 2025-06-14 16:08 | WPDGICN ---
Assessment and Plan Assessment and plan (1) Odynophagia: Code(s): R13.10 - Dysphagia, unspecified Status: Acute Assessment and Plan: probably is radiation induced esophagitis but will assess with egd tomorrow to check for infection, thrush, etc will treat with iv protonix and carafate for now also pureed and easy to eat diet (2) Squamous cell carcinoma of right lung: Code(s): C34.91 - Malignant neoplasm of unspecified part of right bronchus or lung Status: Acute Assessment and Plan: on active treatment (3) Radiation-induced esophagitis: Code(s): K20.80 - Other esophagitis without bleeding Status: Acute (4) Diabetes mellitus: Qualifiers: Diabetes mellitus type: type 2 Diabetes mellitus retirement insulin use: unspecified retirement insulin use status Diabetes mellitus complication status: with other specified complication Qualified Code(s): E11.69 - Type 2 diabetes mellitus with other specified complication Code(s): E11.9 - Type 2 diabetes mellitus without complications Status: Acute (5) Hypertension: Qualifiers: Hypertension type: primary hypertension Qualified Code(s): I10 - Essential (primary) hypertension Code(s): I10 - Essential (primary) hypertension Status: Acute (6) Weight loss: Code(s): R63.4 - Abnormal weight loss Status: Acute GI Consult Note Consult date/time: 06/14/25 16:08 Reason for consult: odynophagia HPI: Anthony Bonilla is a 54 year old male with history of DM, diagnosed with lung cancer in 2022 status post right lobectomy/wedge resection staged as T3 N0 M0 then found to have recurrent malignancy after presented with shortness of breath, cough associated with blood-stained sputum and 30 lb weight loss. Further testing showed subcarinal lymphadenopathy with a right hilar lymphadenopathy and the pathology consistent for for squamous cell carcinoma. He was started on chemotherapy and radiation for about 3 weeks now, last dose of XRT last Saturday and for last week with worsening odynophagia, he has been having a hard time to eat anything because severe discomfort after swallowing with burning sensation, denies dysphagia but mostly is pain. He went to see his oncologist and noted to have tachycardia and advised to come to ER. Review of Systems Constitutional: Comments: weight loss Eyes: Eyes: Denies blurry vision ENT: Reports Normal hearing present Cardiovascular: Comments: tachycardia Respiratory: Respiratory: Reports cough Gastrointestinal: Comments: odynophagia Genitourinary: Genitourinary: Denies urinary frequency Musculoskeletal: Musculoskeletal: Denies neck pain Integumentary/Breasts: Skin/Breast: Denies rash Neurologic: Denies Abnormal speech present Psychiatric: Psychiatric: Denies behavioral changes [facility] Past Medical History Medical History (Updated 06/14/25 @ 16:12 by Meño Carroll MD) Weight loss Odynophagia Lung cancer SALLY (obstructive sleep apnea) Asthma Diabetes mellitus Hypertension Social History Social History Smoking packs per day: 2 Smoking cigarettes per day: 40.0 Years smoked: 35 Smoking pack-years: 70.00 Smoking status: Former smoker Alcohol intake: never Substance use: current Substance use type: marijuana Lack of Transportation: No Lack of Food: Never True Current Housing: I Have Housing Concerned About Future Housing: No Difficulty Paying Gas/Electric Bills: No Difficulty Paying for Meds: No Currently Unemployed: No Education: High School Diploma/GED Difficulty w/ Childcare or Family Care: No Living arrangements: with family Gender identity (if verbalized by the patient): Male Spiritual care concerns: No Meds Home Medications and Allergies Home Medications ?Medication ?Instructions ?Recorded ?Confirmed ?Type albuterol sulfate 90 mcg/actuation 2 puff inhalation QID PRN 11/25/20 06/14/25 Rx aerosol inhaler shortness of breath or wheezing #6.7 grams dapagliflozin propanediol 10 mg 10 mg PO DAILY 03/25/25 06/14/25 History tablet (Farxiga) gabapentin 600 mg tablet 600 mg PO BID 03/25/25 06/14/25 History semaglutide 1 mg/dose (4 mg/3 mL) 1 mg subcut WEEKLY 03/25/25 06/14/25 History subcutaneous pen injector (Ozempic) glimepiride 2 mg tablet 2 mg PO QPM 05/31/25 06/14/25 History metformin 500 mg tablet,extended 500 mg PO DAILY 05/31/25 06/14/25 History release 24 hr alprazolam 0.5 mg tablet 0.5 mg PO BID PRN anxiety 06/14/25 06/14/25 History Allergies Allergy/AdvReac Type Severity Reaction Status Date / Time No Known Allergies Allergy Verified 06/14/25 14:50 Vital Signs Vital Signs - 24 hr 06/14/25 09:42 06/14/25 09:48 06/14/25 09:48 Temperature 97.5 F L Pulse Rate 133 H 133 H Respiratory Rate 18 Blood Pressure 141/92 H Pulse Oximetry 100 99 Oxygen Delivery Room Air Room Air 06/14/25 10:04 06/14/25 10:10 06/14/25 11:13 Temperature Pulse Rate 131 H 136 H 120 H Respiratory Rate 10 L 16 13 Blood Pressure 131/79 Pulse Oximetry 100 Oxygen Delivery 06/14/25 11:15 06/14/25 12:35 06/14/25 14:10 Temperature Pulse Rate 120 H 112 H Respiratory Rate 19 15 Blood Pressure 128/87 120/77 Pulse Oximetry 100 98 98 Oxygen Delivery Room Air 06/14/25 14:22 Temperature 97.7 F Pulse Rate 112 H Respiratory Rate 18 Blood Pressure 120/77 Pulse Oximetry 98 Oxygen Delivery Exam Const: General: comfortable and no acute distress HENMT: Face/Nose/Sinus: Normal nares present Eyes: General: appearance normal, both eyes and all related structures Neck: Neck: no JVD Resp: Auscultation: clear to auscultation bilaterally Cardio: Rate: regular rate Rhythm: regular rhythm GI: Inspection: non-distended GI Palp: Yes Soft to palpation and No Tenderness to palpation present (GI) Auscultation: normal bowel sounds Skin: General skin exam: normal color Neuro: Speech: normal speech Extrem: General: normal to inspection Psych: Mental Status: mental status grossly normal Results Labs 06/14/25 09:58 06/14/25 09:58 Labs: Short CBC 06/14/25 Range/Units 09:58 WBC 5.1 (4.5-10.0) K/mm3 Hgb 14.1 (14.0-18.0) g/dL Hct 41.8 L (42.0-52.0) % Plt Count 112 L (150-375) k/mm3 [facility] 06/14/25 09:58 Sodium 133 L Potassium 4.3 Chloride 98 Carbon Dioxide 27 BUN 17 Creatinine 0.94 Glucose 254 H Calcium 9.2 Cardiac Enzymes 06/14/25 06/14/25 Range/Units 09:58 12:43 Troponin I < 0.012 < 0.012 (0.000-0.034) ng/mL Liver Function 06/14/25 Range/Units 09:58 Total Bilirubin 1.3 (0.2-1.3) mg/dL AST 20 (17-59) U/L ALT 17 (6-50) U/L Alkaline Phosphatase 94 (38-126) U/L Albumin 4.2 (3.5-5.1) g/dL
[2025-06-14 16:11] LABS: Troponin I < 0.012 ng/mL (0.000-0.034)
[2025-06-14] MEDS: SUCRALFATE SUSP 100 MG/ML 10 ML UDC 1000 MG PO ×2 (17:13→20:49)
[2025-06-14] MEDS: GABAPENTIN 300 MG CAPSULE 600 MG PO (17:13)
[2025-06-14] MEDS: oxyCODONE (*CRX) 5 MG/5 ML ORAL SOLN IR PO (17:15)
[2025-06-14] MEDS: LACTATED RINGERS 1,000 ML 100 ML IV CONT (18:17)
[2025-06-14] MEDS: cefTRIAXone 1 GM in SODIUM CHLORIDE 0.9% IV 50 ML 100 ML IVPB (18:57)
[2025-06-14] MEDS: AZITHROMYCIN IV 500 MG in SODIUM CHLORIDE 0.9% IV 250 ML IVPB (20:48)
[2025-06-15] VITALS (10 sets, daily range): BP systolic 102–138; BP diastolic 54–83; PULSE 91–108; RESP 14–20; TEMP 36.5–36.7; O2SAT 92–100; BMI 26.6
[2025-06-15] MEDS: SUCRALFATE SUSP 100 MG/ML 10 ML UDC 1000 MG PO ×3 (06:16→21:08)
[2025-06-15] MEDS: LACTATED RINGERS 1,000 ML 100 ML IV CONT ×2 (06:17→16:35)
--- NOTE | 2025-06-15 07:08 | P.PNIM_ITS ---
Progress Note: A&P Assessment and Plan (1) Radiation-induced esophagitis: Code(s): K20.80 - Other esophagitis without bleeding Status: Acute Assessment and Plan: Patient presents with nonradiating chest pain to the left and midsternal area. Pain described as ?blow torch? like and worse with inspiration. EKG with sinus tach and no ST changes. Serial troponins have been negative. Heart rate improved with hydration. Low concern for cardiac source of chest pain.Patient further states he has been unable to take in much p.o. for the past week due to odynophagia. Denies dysphagia. He says even water is painful going down. * IV Protonix and Carafate * pain control with acetaminophen elixir and oxycodone oral solution * consult GI--> EGD today * Pureed Diet after EGD (2) Odynophagia: Code(s): R13.10 - Dysphagia, unspecified Status: Acute Assessment and Plan: * See above (3) Pneumonia: Code(s): J18.9 - Pneumonia, unspecified organism Status: Acute Assessment and Plan: * CXR: Small right lower lobe pneumonia * Complicating Factors: Lung cancer * started on CAP tx: azithromycin & ceftriaxone * Viral PCR: negative for Flu/COVID/RSV * no supplemental O2 requirement * Monitor vital signs, I&Os, neuro status and patient is a fall risk * Follow WBC, serum electrolytes, temperature curves and cultures * Gentle IV fluid resuscitation (4) Squamous cell carcinoma of right lung: Code(s): C34.91 - Malignant neoplasm of unspecified part of right bronchus or lung Status: Acute Assessment and Plan: * Diagnosed w/ lung cancer in 2022 * S/p right lobectomy/wedge resection staged as T3 N0 M0 * Recurrent malignancy w/ associated shortness of breath, blood tinged cough, 30lb weight loss * Subcarinal lymphadenopathy with a right hilar lymphadenopathy consistent for squamous cell carcinoma * Has been on chemo/radiation x3 weeks * Last dose of XRT last saturday (5) Hypovolemia due to dehydration: Code(s): E86.1 - Hypovolemia; E86.0 - Dehydration Status: Acute Assessment and Plan: Heart rate 133 on admit. Patient has been unable to take in adequate amount of fluid for about 1 week. * 2 L bolus NS given in ED * LR at 100 started on 06/14 * telemetry (6) Diabetes mellitus: Qualifiers: Diabetes mellitus complication status: with other specified complication Diabetes mellitus long-term insulin use: unspecified ultrasonic tester insulin use status Diabetes mellitus type: type 2 Qualified Code(s): E11.69 - Type 2 di abetes mellitus with other specified complication Code(s): E11.9 - Type 2 diabetes mellitus without complications Status: Acute Assessment and Plan: * hypoglycemia protocol * POC blood glucose ACHS * home medication: Farxiga, glimepiride, metformin, Ozempic * correct regimen ordered: Low-dose sliding scale correctional (7) Hypertension: Qualifiers: Hypertension type: primary hypertension Qualified Code(s): I10 - Essential (primary) hypertension Code(s): I10 - Essential (primary) hypertension Status: Acute Assessment and Plan: * Blood pressure 141/92 on admit. Now 120/77. * Patient has not filled antihypertensives since July. * Continue to monitor Plan Diet: NPO GI prophylaxis: Pantoprazole DVT prophylaxis: SCDs lines/drains: Port-A-Cath Fluids: 2 L bolus in ED. LR at 100 mL/hr started on 06/14 Code status: Full Subjective Date/time seen: 06/15/25 07:08 Interval history: 54-year-old male with a past medical history of SALLY, DM 2, hypertension, lung cancer presented to the ED on 06/14/2025 with complaints of chest pain and tachycardia. Diagnosed with lung cancer initially in 2022. Status post right lobectomy/wedge resection and staged as T3 N0 M0. 06/15/2025 Patient resting comfortably in bed at time of exam. Denies any pain or complaints at this moment, but states he does get intermittent chest pain/nausea without any aggravating/alleviating factors. Planning for EGD today. Continue puree diet after scope. Continue iv protonix and carafate. Continue IV abx for pneumonia. Review of Systems Review of Systems: All systems reviewed & are unremarkable except as noted in HPI and below Exam Narrative: Gen - well appearing male in no acute respiratory distress who is nontoxic- appearing lying semi recumbent in bed HEENT - normocephalic. Atraumatic. Pupils equal round and reactive. Extraocular motions intact. Sclera clear and anicteric. Nares patent. Oropharynx was clear. No oral lesions. Moist mucous membranes. Neck - neck was supple. No dominant adenopathy, thyromegaly or masses. 2+ carotid upstrokes without bruits. Chest - lungs are clear to auscultation bilaterally. No wheezes or crackles. CV - heart was regular rate and rhythm. S1-S2. No murmurs gallops or rubs. Abd - abdomen was soft. Nontender. Nondistended. Positive bowel sounds. No organomegaly or masses. Ext - no clubbing, cyanosis or edema. 2+ DP pulses bilaterally. Neuro - patient is alert and oriented x4. Strength is 5/5 in both upper and lower extremities. Cranial nerves 2-12 are intact. Speech is clear. Psych - normal mood and affect. Patient is pleasant and cooperative. Skin - warm and dry. No rashes noted. Objective Data Vital Signs Vital Signs: Vital Signs - 24 hr 06/14/25 09:42 06/14/25 09:48 06/14/25 09:48 Temperature 97.5 F L Pulse Rate 133 H 133 H Respiratory Rate 18 Blood Pressure 141/92 H Pulse Oximetry 100 99 Oxygen Delivery Room Air Room Air 06/14/25 10:04 06/14/25 10:10 06/14/25 11:13 Temperature Pulse Rate 131 H 136 H 120 H Respiratory Rate 10 L 16 13 Blood Pressure 131/79 Pulse Oximetry 100 Oxygen Delivery 06/14/25 11:15 06/14/25 12:35 06/14/25 14:10 Temperature Pulse Rate 120 H 112 H Respiratory Rate 19 15 Blood Pressure 128/87 120/77 Pulse Oximetry 100 98 98 Oxygen Delivery Room Air 06/14/25 14:22 06/14/25 20:16 06/15/25 05:47 Temperature 97.7 F 97.6 F 98.0 F Pulse Rate 112 H 92 91 Respiratory Rate 18 20 20 Blood Pressure 120/77 111/61 115/58 L Pulse Oximetry 98 98 96 Oxygen Delivery Intake/Output Intake/Output: Intake & Output 06/12/25 06/13/25 06/14/25 06/15/25 23:59 23:59 23:59 23:59 Intake Total 2480 1000 Balance 2480 1000 Meds/Results Medications: Active Medications Generic Name Dose Route Start Last Admin Trade Name Freq PRN Reason Stop Dose Admin Acetaminophen 650 mg 06/14/25 15:43 Acetaminophen Elixir 325 Mg/10.15 Ml Udc PO Q4H PRN Mild Pain (1-3) or Fever Albuterol/Ipratropium 3 ml 06/14/25 15:42 Ipratropium 0.5 Mg/Albuterol Sulfate 2.5 Mg (Base) Ampul.Neb 3 Ml INHALATION Q6HRT PRN Shortness Of Breath Or Wheezing Alprazolam 0.5 mg 06/14/25 15:40 Alprazolam (*Crx) 0.5 Mg Tablet PO BID PRN Anxiety Dextrose 12.5 gm 06/14/25 15:40 Dextrose 50% 25 Gm/50 Ml Syringe IV PUSH PRN PRN Hypoglycemia Protocol Gabapentin 600 mg 06/14/25 17:00 06/14/25 17:13 Gabapentin 300 Mg Capsule PO 600 mg BID MARION Administration Glucagon 1 mg 06/14/25 15:40 Glucagon For Inj 1 Mg Vial IM PRN PRN Hypoglycemia Protocol Glucose 15 gm 06/14/25 15:40 Glucose Oral Gel 15 Gm Of Glucse In 37.5 Gm Tube PO PRN PRN Hypoglycemia Protocol Dextrose 1,000 mls @ 100 mls/hr 06/14/25 15:40 Dextrose 5% 1,000 Ml IVPB PRN PRN Hypoglycemia Protocol Lactated Ringer's 1,000 mls @ 100 mls/hr 06/14/25 17:45 06/15/25 06:17 Lr - Lactated Ringers Iv IV CONT 100 mls/hr .Q10H MARION Administration Ceftriaxone Sodium 1 gm/ 50 mls @ 100 mls/hr 06/14/25 19:00 06/14/25 18:57 Sodium Chloride IVPB 100 mls/hr Q24H MARION Administration Azithromycin 500 mg/ Sodium 250 mls @ 250 mls/hr 06/14/25 19:00 06/14/25 20:48 Chloride IVPB 06/18/25 19:59 250 mls/hr Q24H MARION Administration Insulin Aspart 2 - 5 units 06/14/25 17:00 06/14/25 17:11 Insulin Aspart (*Bkc) 100 Units/Ml SUB-Q Not Given TIDWM MARION Protocol Ondansetron HCl 4 mg 06/14/25 13:10 06/14/25 17:14 Ondansetron Inj 4 Mg/2 Ml Vial IV PUSH 4 mg Q4H PRN Administration Nausea Oxycodone HCl 5 mg 06/14/25 15:43 06/14/25 17:15 Oxycodone (*Crx) 5 Mg/5 Ml Oral Soln Ir PO 5 mg Q4H PRN Administration Pain Rated 7-10 Pantoprazole Sodium 40 mg 06/15/25 09:00 Pantoprazole Sodium Iv 40 Mg Vial IV PUSH QAM MARION Sucralfate 1,000 mg 06/14/25 16:30 06/15/25 06:16 Sucralfate Susp 100 Mg/Ml 10 Ml Udc PO 1,000 mg ACHS MARION Administration Radiology Results: ITS Impressions Chest X-Ray 06/14/25 10:41 Impression: Small right lower lobe pneumonia Chest CTA 06/14/25 11:10 IMPRESSION: 1. No pulmonary embolus. 2. Stable right hilar and mediastinal lymphadenopathy, consistent with metastatic disease. 3. Moderate emphysema. Right lower lobectomy. 4. T12 compression fracture, new from 03/04/2025, likely acute or subacute. Labs Labs: Laboratory Results - last 24 hr 06/14/25 06/14/25 06/14/25 09:58 10:15 11:26 WBC 5.1 RBC 5.12 Hgb 14.1 Hct 41.8 L MCV 81.6 MCH 27.5 MCHC 33.7 RDW 15.7 H Plt Count 112 L MPV 7.7 Immature Gran % (Auto) 0.6 H Neut % (Auto) 80.5 H Lymph % (Auto) 6.3 L [place] % (Auto) 10.6 H Eos % (Auto) 1.4 Baso % (Auto) 0.6 Lymph # (Auto) 0.32 L [place] # (Auto) 0.5 Eos # (Auto) 0.1 Baso # (Auto) 0.0 Abs Immat Gran (auto) 0.03 Absolute Neuts (auto) 4.1 Absolute Nucleated RBC 0.000 Nucleated RBC % 0.0 PT 13.3 INR 1.0 APTT 27.6 Sodium 133 L Potassium 4.3 Chloride 98 Carbon Dioxide 27 Anion Gap 8 BUN 17 Creatinine 0.94 Estim Creat Clear Calc 88 Estimated GFR > 60 Glucose 254 H POC Capillary Glucose Lactic Acid 1.6 Calcium 9.2 Magnesium 1.9 Total Bilirubin 1.3 AST 20 ALT 17 Alkaline Phosphatase 94 Troponin I < 0.012 Total Protein 7.3 Albumin 4.2 Lipase 60 06/14/25 06/14/25 06/14/25 12:43 15:39 16:54 WBC RBC Hgb Hct MCV MCH MCHC RDW Plt Count MPV Immature Gran % (Auto) Neut % (Auto) Lymph % (Auto) [place] % (Auto) Eos % (Auto) Baso % (Auto) Lymph # (Auto) [place] # (Auto) Eos # (Auto) Baso # (Auto) Abs Immat Gran (auto) Absolute Neuts (auto) Absolute Nucleated RBC Nucleated RBC % PT INR APTT Sodium Potassium Chloride Carbon Dioxide Anion Gap BUN Creatinine Estim Creat Clear Calc Estimated GFR Glucose POC Capillary Glucose 89 Lactic Acid Calcium Magnesium Total Bilirubin AST ALT Alkaline Phosphatase Troponin I < 0.012 < 0.012 Total Protein Albumin Lipase 06/14/25 20:14 WBC RBC Hgb Hct MCV MCH MCHC RDW Plt Count MPV Immature Gran % (Auto) Neut % (Auto) Lymph % (Auto) [place] % (Auto) Eos % (Auto) Baso % (Auto) Lymph # (Auto) [place] # (Auto) Eos # (Auto) Baso # (Auto) Abs Immat Gran (auto) Absolute Neuts (auto) Absolute Nucleated RBC Nucleated RBC % PT INR APTT Sodium Potassium Chloride Carbon Dioxide Anion Gap BUN Creatinine Estim Creat Clear Calc Estimated GFR Glucose POC Capillary Glucose 122 H Lactic Acid Calcium Magnesium Total Bilirubin AST ALT Alkaline Phosphatase Troponin I Total Protein Albumin Lipase Quality VTE Prophylaxis VTE prophylaxis: mechanical ordered
[2025-06-15 07:37] LABS: Hematocrit 36.8 % (42.0-52.0); Hemoglobin 12.2 g/dL (14.0-18.0); Immature Granulocyte Percent A 0.5 % (0-0.5); Immature Platelet Fraction Pct 0.4 % (0.9-11.2); Lymphocytes Absolute Auto 0.32 K/mm3 (0.9-3.2); Mean Corpuscular HGB Conc 33.2 g/dl (32-36); Mean Corpuscular Hemoglobin 27.5 pg (26-34); Mean Corpuscular Volume 83.1 fl (80-100); Nucleated Red Blood Cells Absolute Auto 0.000 K/mm3 (0.0-0.012); Nucleated Red Blood Cells Perc 0.0 % (0.0-0.2); Platelet Count Result 118 k/mm3 (150-375); Red Blood Count 4.43 M/mm3 (4.6-6.20); White Blood Count 3.8 K/mm3 (4.5-10.0)
[2025-06-15 08:01] LABS: Alanine Aminotransferase 13 U/L (6-50); Albumin Level 3.5 g/dL (3.5-5.1); Alkaline Phosphatase 84 U/L (38-126); Anion Gap 4 mmol/L (4-12); Aspartate Amino Transferase 17 U/L (17-59); Bilirubin,Total 0.7 mg/dL (0.2-1.3); Blood Urea Nitrogen 10 mg/dL (9-20); Calcium 8.4 mg/dL (8.4-10.2); Carbon Dioxide 29 mmol/L (22-30); Chloride 101 mmol/L (98-107); Estimated CRCL calculation 106 ml/min; Estimated Glomerular Filt Rate > 60; Glucose 127 mg/dL (65-110); Potassium 4.7 mmol/L (3.4-5.0); Sodium 134 mmol/L (137-145); Total Protein 6.2 g/dL (6.3-8.2)
[2025-06-15] MEDS: PANTOPRAZOLE SODIUM IV 40 MG VIAL IV PUSH ×2 (08:54→20:52)
--- NOTE | 2025-06-15 13:39 | PC.NURSE ---
On 06/15/25, the student, [Dar Edgar], provided care and completed [facility] documentation on this patient. I have reviewed the student's documentation and agree with the findings.
[2025-06-15] MEDS: LACTATED RINGERS 1,000 ML 150 ML IV CONT (14:52)
--- NOTE | 2025-06-15 14:53 | WPDANESEPPF ---
Anes - Initial Pre Proc Eval Procedure: Operation Date: 06/15/25 15:30 Proposed Procedures p Esophagogastroduodenoscopy - Meño Carroll MD Date/Time: 06/15/25 14:53 Surgeon: Philippe Muñiz MD Pre Op Diagnosis: metastatic lung cancer,tachycardia Patient Data Age: 54 Gender: M Height: 1.83 m Weight: 89.1 kg Last Vital Signs Temp 97.7 F 06/15/25 14:47 Pulse 102 H 06/15/25 14:47 Resp 20 06/15/25 14:47 BP 117/77 06/15/25 14:47 Pulse Ox 100 06/15/25 14:47 O2 Del Method Room Air 06/15/25 14:47 Allergies Allergy/AdvReac Type Severity Reaction Status Date / Time No Known Allergies Allergy Verified 06/15/25 14:46 Home Medications ?Medication ?Instructions ?Recorded ?Confirmed ?Type albuterol sulfate 90 mcg/actuation 2 puff inhalation QID PRN 11/25/20 06/14/25 Rx aerosol inhaler shortness of breath or wheezing #6.7 grams dapagliflozin propanediol 10 mg 10 mg PO DAILY 03/25/25 06/14/25 History tablet (Farxiga) gabapentin 600 mg tablet 600 mg PO BID 03/25/25 06/14/25 History semaglutide 1 mg/dose (4 mg/3 mL) 1 mg subcut WEEKLY 03/25/25 06/14/25 History subcutaneous pen injector (Ozempic) glimepiride 2 mg tablet 2 mg PO QPM 05/31/25 06/14/25 History metformin 500 mg tablet,extended 500 mg PO DAILY 05/31/25 06/14/25 History release 24 hr alprazolam 0.5 mg tablet 0.5 mg PO BID PRN anxiety 06/14/25 06/14/25 History Laboratory Tests 06/14/25 06/14/25 06/14/25 15:39 16:54 20:14 WBC RBC Hgb Hct MCV MCH MCHC RDW Plt Count MPV Immature Gran % (Auto) Neut % (Auto) Lymph % (Auto) [place] % (Auto) Eos % (Auto) Baso % (Auto) Lymph # (Auto) [place] # (Auto) Eos # (Auto) Baso # (Auto) Abs Immat Gran (auto) Absolute Neuts (auto) Absolute Nucleated RBC Nucleated RBC % % Immature Plt Fraction Sodium Potassium Chloride Carbon Dioxide Anion Gap BUN Creatinine Estim Creat Clear Calc Estimated GFR Glucose POC Capillary Glucose 89 mg/dl 122 H mg/dl (65-105) (65-105) Calcium Total Bilirubin AST ALT Alkaline Phosphatase Troponin I < 0.012 ng/mL (0.000-0.034) Total Protein Albumin 06/15/25 06/15/25 06/15/25 07:29 07:45 12:05 WBC 3.8 L K/mm3 (4.5-10.0) RBC 4.43 L M/mm3 (4.6-6.20) Hgb 12.2 L g/dL (14.0-18.0) Hct 36.8 L % (42.0-52.0) MCV 83.1 fl (80-100) MCH 27.5 pg (26-34) MCHC 33.2 g/dl (32-36) RDW 15.9 H % (11.5-14.5) Plt Count 118 L k/mm3 (150-375) MPV 8.0 fl (7.4-10.4) Immature Gran % (Auto) 0.5 % (0-0.5) Neut % (Auto) 75.9 H % (45.5-73.1) Lymph % (Auto) 8.5 L % (18.3-44.2) [place] % (Auto) 12.7 H % (2.6-8.5) Eos % (Auto) 1.9 % (0-4.4) Baso % (Auto) 0.5 % (0.2-1.2) Lymph # (Auto) 0.32 L K/mm3 (0.9-3.2) [place] # (Auto) 0.5 K/mm3 (0.1-0.6) Eos # (Auto) 0.1 K/mm3 (0-0.3) Baso # (Auto) 0.0 K/mm3 (0.0-0.1) Abs Immat Gran (auto) 0.02 K/mm3 (0.00-0.031) Absolute Neuts (auto) 2.9 K/mm3 (1.3-6.7) Absolute Nucleated RBC 0.000 K/mm3 (0.0-0.012) Nucleated RBC % 0.0 % (0.0-0.2) % Immature Plt Fraction 0.4 L % (0.9-11.2) Sodium 134 L mmol/L (137-145) Potassium 4.7 mmol/L (3.4-5.0) Chloride 101 mmol/L (98-107) Carbon Dioxide 29 mmol/L (22-30) Anion Gap 4 mmol/L (4-12) BUN 10 D mg/dL (9-20) Creatinine 0.77 mg/dL (0.7-1.3) Estim Creat Clear Calc 106 ml/min Estimated GFR > 60 (59 - ) Glucose 127 H mg/dL (65-110) POC Capillary Glucose 132 H mg/dl 116 H mg/dl (65-105) (65-105) Calcium 8.4 mg/dL (8.4-10.2) Total Bilirubin 0.7 mg/dL (0.2-1.3) AST 17 U/L (17-59) ALT 13 U/L (6-50) Alkaline Phosphatase 84 U/L (38-126) Troponin I Total Protein 6.2 L g/dL (6.3-8.2) Albumin 3.5 g/dL (3.5-5.1) Patient hx anesthesia problems: none Family hx anesthesia problems: none Results Review: All pre-operative results and documents have been reviewed as part of the pre-operative evaluation. [facility] Past Medical History Medical History Weight loss Odynophagia Lung cancer SALLY (obstructive sleep apnea) Asthma Diabetes mellitus Hypertension Social History Social History Smoking packs per day: 2 Smoking cigarettes per day: 40.0 Years smoked: 35 Smoking pack-years: 70.00 Smoking status: Former smoker Alcohol intake: never Substance use: current Substance use type: marijuana Lack of Transportation: No Lack of Food: Never True Current Housing: I Have Housing Concerned About Future Housing: No Difficulty Paying Gas/Electric Bills: No Difficulty Paying for Meds: No Currently Unemployed: No Education: High School Diploma/GED Difficulty w/ Childcare or Family Care: No Living arrangements: with family Gender identity (if verbalized by the patient): Male Spiritual care concerns: No Anes - Eval Final PreProcedure Day of Procedure 06/15/25 14:53 Patient weight: overweight Lungs: normal air movement Airway: Mallampati scale class II Neurological: alert and oriented Last oral intake: >/= 8 hours ASA classification: III Emergent: no Anesthetic plan: proceed Anesthesia type and monitoring: general GIVS and standard monitoring Results Review: All pre-operative results and documents have been reviewed as part of the pre-operative evaluation. SALLY, noncompliant w CPAP, DM, HTN, now w lung ca, s/p lobectomy 2022/chemo/radiation, long time smoker in the past per EMR. Pt now for EGD. Informed Consent: The patient's anesthetic plan and its attendant risks and benefits were discussed with the patient/family/POA. Questions were solicited and answers provided to the satisfaction of the patient/family/POA.
--- NOTE | 2025-06-15 15:25 | S_PTH ---
PATIENT: Anthony Bonilla LOC: [id number] U#:[id number] AGE/SX: 54/M ROOM: 240 RE06/14/[address]: Shukri Alegria MD : [id number] BED: 01 DIS: 06/16/2025 SPEC #: [id number] RECD: 06/16/25 07:06 STATUS: MARIA LUISA REQ #: [id number] VENKATA: 06/15/25 15:[address]: Meño Carroll DEPT: [facility] Surgical RECD BY: Zakia Farah ENTERED: 06/16/25 07:07 SP TYPE: Surgical OTHR DR: Charlette Chan, ANNIA Clark-MD Giovanna Palacio PA Tissues: A - Gastric Biopsy B - Esophageal Biopsy Procedures: Hematoxylin and Eosin Stain Gross and Microscopic Level 4
[2025-06-15] MEDS: oxyCODONE (*CRX) 5 MG/5 ML ORAL SOLN IR PO ×2 (16:35→22:45)
[2025-06-15] MEDS: GABAPENTIN 300 MG CAPSULE 600 MG PO (17:27)
[2025-06-15 18:13] LABS: Influenza A QL RT-PCR Negative (Negative); Influenza B QL RT-PCR Negative (Negative); RSV RNA, RT-PCR Negative (Negative); SARS-CoV-2 RNA PCR Negative (Negative)
[2025-06-15] MEDS: cefTRIAXone 1 GM in SODIUM CHLORIDE 0.9% IV 50 ML 100 ML IVPB (20:52)
[2025-06-15] MEDS: AZITHROMYCIN IV 500 MG in SODIUM CHLORIDE 0.9% IV 250 ML IVPB (20:53)
[2025-06-16 04:21] VITALS: BP 118/69; PULSE 109; RESP 20; TEMP 36.3; O2SAT 95
[2025-06-16 05:12] LABS: Hematocrit 34.6 % (42.0-52.0); Hemoglobin 11.7 g/dL (14.0-18.0); Immature Granulocyte Percent A 0.5 % (0-0.5); Immature Platelet Fraction Pct 0.4 % (0.9-11.2); Lymphocytes Absolute Auto 0.43 K/mm3 (0.9-3.2); Mean Corpuscular HGB Conc 33.8 g/dl (32-36); Mean Corpuscular Hemoglobin 28.1 pg (26-34); Mean Corpuscular Volume 83.0 fl (80-100); Nucleated Red Blood Cells Absolute Auto 0.000 K/mm3 (0.0-0.012); Nucleated Red Blood Cells Perc 0.0 % (0.0-0.2); Platelet Count Result 109 k/mm3 (150-375); Red Blood Count 4.17 M/mm3 (4.6-6.20); White Blood Count 4.1 K/mm3 (4.5-10.0)
[2025-06-16 05:20] LABS: Alanine Aminotransferase 11 U/L (6-50); Albumin Level 3.3 g/dL (3.5-5.1); Alkaline Phosphatase 78 U/L (38-126); Anion Gap 5 mmol/L (4-12); Aspartate Amino Transferase 18 U/L (17-59); Bilirubin,Total 0.6 mg/dL (0.2-1.3); Blood Urea Nitrogen 11 mg/dL (9-20); Calcium 8.1 mg/dL (8.4-10.2); Carbon Dioxide 28 mmol/L (22-30); Chloride 101 mmol/L (98-107); Estimated CRCL calculation 106 ml/min; Estimated Glomerular Filt Rate > 60; Glucose 112 mg/dL (65-110); Potassium 4.2 mmol/L (3.4-5.0); Sodium 134 mmol/L (137-145); Total Protein 6.0 g/dL (6.3-8.2)
[2025-06-16] MEDS: SUCRALFATE SUSP 100 MG/ML 10 ML UDC 1000 MG PO ×2 (06:30→11:13)
--- NOTE | 2025-06-16 06:59 | PM.IMPN ---
Subjective Date/time seen: 06/16/25 06:59 Objective Data Vital Signs Vital Signs: Vital Signs - 24 hr 06/15/25 08:15 06/15/25 09:50 06/15/25 14:00 Temperature 98.1 F Pulse Rate 97 Respiratory Rate 16 Blood Pressure 135/67 Pulse Oximetry 92 99 Oxygen Delivery Room Air Room Air 06/15/25 14:47 06/15/25 15:28 06/15/25 15:38 Temperature 97.7 F Pulse Rate 102 H 95 106 H Respiratory Rate 20 18 18 Blood Pressure 117/77 108/56 L 102/54 L Pulse Oximetry 100 100 100 Oxygen Delivery Room Air Room Air Room Air 06/15/25 15:48 06/15/25 16:30 06/15/25 19:45 Temperature 98.1 F Pulse Rate 98 91 91 Respiratory Rate 15 14 14 Blood Pressure 124/59 L 123/61 Pulse Oximetry 100 99 99 Oxygen Delivery Room Air Room Air 06/15/25 20:11 06/16/25 04:21 Temperature 98.0 F 97.4 F L Pulse Rate 108 H 109 H Respiratory Rate 20 20 Blood Pressure 138/83 118/69 Pulse Oximetry 98 95 Oxygen Delivery Intake/Output Intake/Output: Intake & Output 06/13/25 06/14/25 06/15/25 06/16/25 23:59 23:59 23:59 23:59 Intake Total 2780 2740.0 300 Balance 2780 2740.0 300 Meds/Results Medications: Active Medications Generic Name Dose Route Start Last Admin Trade Name Freq PRN Reason Stop Dose Admin Acetaminophen 650 mg 06/14/25 15:43 Acetaminophen Elixir 325 Mg/10.15 Ml Udc PO Q4H PRN Mild Pain (1-3) or Fever Albuterol/Ipratropium 3 ml 06/14/25 15:42 Ipratropium 0.5 Mg/Albuterol Sulfate 2.5 Mg (Base) Ampul.Neb 3 Ml INHALATION Q6HRT PRN Shortness Of Breath Or Wheezing Alprazolam 0.5 mg 06/14/25 15:40 Alprazolam (*Crx) 0.5 Mg Tablet PO BID PRN Anxiety Dextrose 12.5 gm 06/14/25 15:40 Dextrose 50% 25 Gm/50 Ml Syringe IV PUSH PRN PRN Hypoglycemia Protocol Gabapentin 600 mg 06/14/25 17:00 06/15/25 17:27 Gabapentin 300 Mg Capsule PO 600 mg BID MARION Administration Glucagon 1 mg 06/14/25 15:40 Glucagon For Inj 1 Mg Vial IM PRN PRN Hypoglycemia Protocol Glucose 15 gm 06/14/25 15:40 Glucose Oral Gel 15 Gm Of Glucse In 37.5 Gm Tube PO PRN PRN Hypoglycemia Protocol Dextrose 1,000 mls @ 100 mls/hr 06/14/25 15:40 Dextrose 5% 1,000 Ml IVPB PRN PRN Hypoglycemia Protocol Lactated Ringer's 1,000 mls @ 100 mls/hr 06/14/25 17:45 06/15/25 16:35 Lr - Lactated Ringers Iv IV CONT 100 mls/hr .Q10H MARION Administration Ceftriaxone Sodium 1 gm/ 50 mls @ 100 mls/hr 06/14/25 19:00 06/15/25 20:52 Sodium Chloride IVPB 100 mls/hr Q24H MARION Administration Azithromycin 500 mg/ Sodium 250 mls @ 250 mls/hr 06/14/25 19:00 06/15/25 20:53 Chloride IVPB 06/18/25 19:59 250 mls/hr Q24H MARION Administration Insulin Aspart 2 - 5 units 06/14/25 17:00 06/15/25 17:22 Insulin Aspart (*Bkc) 100 Units/Ml SUB-Q Not Given TID[facility] Protocol Ondansetron HCl 4 mg 06/14/25 13:10 06/14/25 17:14 Ondansetron Inj 4 Mg/2 Ml Vial IV PUSH 4 mg Q4H PRN Administration Nausea Oxycodone HCl 5 mg 06/14/25 15:43 06/15/25 22:45 Oxycodone (*Crx) 5 Mg/5 Ml Oral Soln Ir PO 5 mg Q4H PRN Administration Pain Rated 7-10 Pantoprazole Sodium 40 mg 06/15/25 21:00 06/15/25 20:52 Pantoprazole Sodium Iv 40 Mg Vial IV PUSH 40 mg Q12HR MARION Administration Sucralfate 1,000 mg 06/14/25 16:30 06/16/25 06:30 Sucralfate Susp 100 Mg/Ml 10 Ml Udc PO 1,000 mg ACHS MARION Administration Radiology Results: ITS Impressions Chest X-Ray 06/14/25 10:41 Impression: Small right lower lobe pneumonia Chest CTA 06/14/25 11:10 IMPRESSION: 1. No pulmonary embolus. 2. Stable right hilar and mediastinal lymphadenopathy, consistent with metastatic disease. 3. Moderate emphysema. Right lower lobectomy. 4. T12 compression fracture, new from 03/04/2025, likely acute or subacute. Labs Labs: Laboratory Results - last 24 hr 06/15/25 06/15/25 06/15/25 07:29 07:45 12:05 WBC 3.8 L RBC 4.43 L Hgb 12.2 L Hct 36.8 L MCV 83.1 MCH 27.5 MCHC 33.2 RDW 15.9 H Plt Count 118 L MPV 8.0 Immature Gran % (Auto) 0.5 Neut % (Auto) 75.9 H Lymph % (Auto) 8.5 L [place] % (Auto) 12.7 H Eos % (Auto) 1.9 Baso % (Auto) 0.5 Lymph # (Auto) 0.32 L [place] # (Auto) 0.5 Eos # (Auto) 0.1 Baso # (Auto) 0.0 Abs Immat Gran (auto) 0.02 Absolute Neuts (auto) 2.9 Absolute Nucleated RBC 0.000 Nucleated RBC % 0.0 % Immature Plt Fraction 0.4 L Sodium 134 L Potassium 4.7 Chloride 101 Carbon Dioxide 29 Anion Gap 4 BUN 10 D Creatinine 0.77 Estim Creat Clear Calc 106 Estimated GFR > 60 Glucose 127 H POC Capillary Glucose 132 H 116 H Calcium 8.4 Total Bilirubin 0.7 AST 17 ALT 13 Alkaline Phosphatase 84 Total Protein 6.2 L Albumin 3.5 Influenza A (RT-PCR) Influenza B (RT-PCR) RSV (RT-PCR) SARS-CoV-2 RNA (RT-PCR) 06/15/25 06/15/25 06/15/25 14:56 15:42 17:01 WBC RBC Hgb Hct MCV MCH MCHC RDW Plt Count MPV Immature Gran % (Auto) Neut % (Auto) Lymph % (Auto) [place] % (Auto) Eos % (Auto) Baso % (Auto) Lymph # (Auto) [place] # (Auto) Eos # (Auto) Baso # (Auto) Abs Immat Gran (auto) Absolute Neuts (auto) Absolute Nucleated RBC Nucleated RBC % % Immature Plt Fraction Sodium Potassium Chloride Carbon Dioxide Anion Gap BUN Creatinine Estim Creat Clear Calc Estimated GFR Glucose POC Capillary Glucose 113 H 88 106 H Calcium Total Bilirubin AST ALT Alkaline Phosphatase Total Protein Albumin Influenza A (RT-PCR) Influenza B (RT-PCR) RSV (RT-PCR) SARS-CoV-2 RNA (RT-PCR) 06/15/25 06/15/25 06/16/25 17:29 19:57 04:12 WBC 4.1 L RBC 4.17 L Hgb 11.7 L Hct 34.6 L MCV 83.0 MCH 28.1 MCHC 33.8 RDW 15.7 H Plt Count 109 L MPV 7.9 Immature Gran % (Auto) 0.5 Neut % (Auto) 71.4 Lymph % (Auto) 10.6 L [place] % (Auto) 15.3 H Eos % (Auto) 1.7 Baso % (Auto) 0.5 Lymph # (Auto) 0.43 L [place] # (Auto) 0.6 Eos # (Auto) 0.1 Baso # (Auto) 0.0 Abs Immat Gran (auto) 0.02 Absolute Neuts (auto) 2.9 Absolute Nucleated RBC 0.000 Nucleated RBC % 0.0 % Immature Plt Fraction 0.4 L Sodium 134 L Potassium 4.2 Chloride 101 Carbon Dioxide 28 Anion Gap 5 BUN 11 Creatinine 0.77 Estim Creat Clear Calc 106 Estimated GFR > 60 Glucose 112 H POC Capillary Glucose 146 H Calcium 8.1 L Total Bilirubin 0.6 AST 18 ALT 11 Alkaline Phosphatase 78 Total Protein 6.0 L Albumin 3.3 L Influenza A (RT-PCR) Negative Influenza B (RT-PCR) Negative RSV (RT-PCR) Negative SARS-CoV-2 RNA (RT-PCR) Negative
[2025-06-16] MEDS: GABAPENTIN 300 MG CAPSULE 600 MG PO (08:51)
[2025-06-16] MEDS: PANTOPRAZOLE SODIUM IV 40 MG VIAL IV PUSH (08:52)
[2025-06-16] MEDS: DOCUSATE SODIUM 100 MG CAPSULE PO (11:12)
--- NOTE | 2025-06-16 12:41 | P.DS_ITS ---
DS: Admitting Diagnosis Discharge Date 06/16/25 Admitting Diagnosis - chest pain - odynophagia - nausea/vomiting DS: Discharge Diagnosis Discharge Diagnosis (1) Radiation-induced esophagitis: Code(s): K20.80 - Other esophagitis without bleeding Status: Acute (2) Odynophagia: Code(s): R13.10 - Dysphagia, unspecified Status: Acute (3) Squamous cell carcinoma of right lung: Code(s): C34.91 - Malignant neoplasm of unspecified part of right bronchus or lung Status: Acute (4) Hypovolemia due to dehydration: Code(s): E86.1 - Hypovolemia; E86.0 - Dehydration Status: Acute (5) Diabetes mellitus: Qualifiers: Diabetes mellitus type: type 2 Diabetes mellitus fci insulin use: unspecified fci insulin use status Diabetes mellitus complication status: with other specified complication Qualified Code(s): E11.69 - Type 2 diabetes mellitus with other specified complication Code(s): E11.9 - Type 2 diabetes mellitus without complications Status: Acute (6) Hypertension: Qualifiers: Hypertension type: primary hypertension Qualified Code(s): I10 - Essential (primary) hypertension Code(s): I10 - Essential (primary) hypertension Status: Acute (7) T12 compression fracture: Code(s): S22.080A - Wedge compression fracture of T11-T12 vertebra, initial encounter for closed fracture Status: Acute DS: Summary Hospital Course Reason for hospitalization: - chest pain - odynophagia - nausea/vomiting Hospital Course: 54-year-old male with a past medical history of SALLY, DM 2, hypertension, lung cancer currently undergoing chemoradiation presented to the ED on 06/14/2025 with complaints of chest pain and tachycardia. Initial vital signs 141/92, HR 133, respirations 18, temp 97.5?, 100% on room air. Labs reveals slight hyponatremia at 133 and hyperglycemia at 254. Troponin negative. First ECG with sinus tachycardia with rate of 132. Second EKG again shows sinus tachycardia but rate has decreased to 117. Chest x-ray with concern small right lower lobe pneumonia. CTA chest PE protocol does not show a PE, stable lymphadenopathy in the right hilar, moderate emphysema and right lower lobectomy. T12 compression fracture is new from 03/04/2025. Likely acute or subacute. Patient admitted for further evaluation and management. Upon admission, GI was consulted and patient subsequently underwent EGD 06/15 which showed moderate esophagitis in the proximal esophagus and midesophagus consistent with radiation esophagitis, multiple biopsies were taken. GI recommended PPI b.i.d., Carafate ACHS and viscous lidocaine p.r.n. for symptoms. PRN oxycodone prescribed for severe pain only. Patient's diet was advanced to regular diet which he was tolerating on the day of discharge. Patient was discussed with GI over the phone who cleared patient for discharge with outpatient follow-up with his radiation oncologist. In regards to tachycardia, patient's HR improved with IV fluids. EKG showed sinus tachycardia. CTA chest with no PE. Per chart review, patient appears to have chronic tachycardia. Incidentally, admit CTA showed mild T12 compression fracture likely acute or subacute. Patient reports fall in setting of syncopal episode several days prior to admission. Reports he became lightheaded upon standing and fell. He subsequently did have back pain with this however that back pain has resolved. Do not feel bracing is warranted at this time given patient has no pain however I did discuss the importance of outpatient follow-up with his primary care provider as well his oncologist to discuss possible repeat PET scan. Of note, PET scan 03/2025 did not note any bony metastasis. Suspect his syncopal episode was related to hypovolemia given prodromal lightheadedness. Troponin trend was negative and EKG showed sinus tachycardia. Patient reported he has had a recent normal echocardiogram in the outpatient setting. Patient was ambulating without symptoms of lightheadedness on day of discharge. On admission, there was some concern for pneumonia given abnormal chest x-ray however CTA chest did not note any consolidation or signs of pneumonia. Abnormal chest x-ray likely due to right lower lobe lobectomy. Patient did not have any symptoms of pneumonia, was afebrile without leukocytosis. Do not feel further antibiotics are warranted on discharge. I am concerned that patient is on Ozempic and already having decreased PO intake with his chemo treatments. I encouraged him to discuss a potential alternative with his PCP. Patient was discharged home in stable condition. Strict return precautions discussed. He was instructed to follow up closely with his PCP and oncol ogist/radiation oncologist. Time Spent with Patient Time attestation: Total time spent providing and/or coordinating discharge services: Time spent: Greater than 30 minutes Exam Narrative: General: NAD Eyes: EOMI ENT: neck supple Cardiovascular: mildly tachycardia, regular rhythm Respiratory: faint, scattered expiratory wheeze. Respirations even and unlabored on RA Gastrointestinal: Soft, non tender Genitourinary: no suprapubic tenderness Musculoskeletal: No edema Skin: warm, dry Neuro: Alert. Psych: Mood appropriate DS: Data Data Completed and Pending Completed studies during hospitalization: ITS Impressions Chest X-Ray 06/14/25 10:41 Impression: Small right lower lobe pneumonia Chest CTA 06/14/25 11:10 IMPRESSION: 1. No pulmonary embolus. 2. Stable right hilar and mediastinal lymphadenopathy, consistent with metastatic disease. 3. Moderate emphysema. Right lower lobectomy. 4. T12 compression fracture, new from 03/04/2025, likely acute or subacute. Pending studies at discharge: Pending at discharge 06/15/25 15:25 Surgical [PTH] Routine Labs on day of discharge: Labs from last 24 hours 06/16/25 06/16/25 06/16/25 11:43 07:56 04:12 WBC 4.1 L RBC 4.17 L Hgb 11.7 L Hct 34.6 L MCV 83.0 MCH 28.1 MCHC 33.8 RDW 15.7 H Plt Count 109 L MPV 7.9 Immature Gran % (Auto) 0.5 Neut % (Auto) 71.4 Lymph % (Auto) 10.6 L [place] % (Auto) 15.3 H Eos % (Auto) 1.7 Baso % (Auto) 0.5 Lymph # (Auto) 0.43 L [place] # (Auto) 0.6 Eos # (Auto) 0.1 Baso # (Auto) 0.0 Abs Immat Gran (auto) 0.02 Absolute Neuts (auto) 2.9 Absolute Nucleated RBC 0.000 Nucleated RBC % 0.0 % Immature Plt Fraction 0.4 L Sodium 134 L Potassium 4.2 Chloride 101 Carbon Dioxide 28 Anion Gap 5 BUN 11 Creatinine 0.77 Estim Creat Clear Calc 106 Estimated GFR > 60 Glucose 112 H POC Capillary Glucose 174 H 144 H Calcium 8.1 L Total Bilirubin 0.6 AST 18 ALT 11 Alkaline Phosphatase 78 Total Protein 6.0 L Albumin 3.3 L Influenza A (RT-PCR) Influenza B (RT-PCR) RSV (RT-PCR) SARS-CoV-2 RNA (RT-PCR) 06/15/25 06/15/25 06/15/25 19:57 17:29 17:01 WBC RBC Hgb Hct MCV MCH MCHC RDW Plt Count MPV Immature Gran % (Auto) Neut % (Auto) Lymph % (Auto) [place] % (Auto) Eos % (Auto) Baso % (Auto) Lymph # (Auto) [place] # (Auto) Eos # (Auto) Baso # (Auto) Abs Immat Gran (auto) Absolute Neuts (auto) Absolute Nucleated RBC Nucleated RBC % % Immature Plt Fraction Sodium Potassium Chloride Carbon Dioxide Anion Gap BUN Creatinine Estim Creat Clear Calc Estimated GFR Glucose POC Capillary Glucose 146 H 106 H Calcium Total Bilirubin AST ALT Alkaline Phosphatase Total Protein Albumin Influenza A (RT-PCR) Negative Influenza B (RT-PCR) Negative RSV (RT-PCR) Negative SARS-CoV-2 RNA (RT-PCR) Negative 06/15/25 06/15/25 15:42 14:56 WBC RBC Hgb Hct MCV MCH MCHC RDW Plt Count MPV Immature Gran % (Auto) Neut % (Auto) Lymph % (Auto) [place] % (Auto) Eos % (Auto) Baso % (Auto) Lymph # (Auto) [place] # (Auto) Eos # (Auto) Baso # (Auto) Abs Immat Gran (auto) Absolute Neuts (auto) Absolute Nucleated RBC Nucleated RBC % % Immature Plt Fraction Sodium Potassium Chloride Carbon Dioxide Anion Gap BUN Creatinine Estim Creat Clear Calc Estimated GFR Glucose POC Capillary Glucose 88 113 H Calcium Total Bilirubin AST ALT Alkaline Phosphatase Total Protein Albumin Influenza A (RT-PCR) Influenza B (RT-PCR) RSV (RT-PCR) SARS-CoV-2 RNA (RT-PCR) Discharge Plan Discharge Attending physician on discharge: Shukri Alegria Consulting providers: Brnedan Sims; Meño Carroll; Giovanna Joshi Discharging Clinician: Giovanna Joshi Anticipated Discharge Date/Time: 06/16/25 12:40 Patient Disposition: Home Activity: as tolerated Diet: bland Discharge Instructions: Follow a soft, bland diet: Avoid spicy, acidic, rough, or very hot foods. Recommend soft foods such as oatmeal, mashed potatoes, yogurt, and adequate hydration to minimize irritation and facilitate swallowing. Sleep with the head of the bed elevated or prop yourself up on pillows to reduce reflux. Do not eat within 3 hours of bedtime. Utilize Tylenol and viscous lidocaine as needed for pain. Avoid antiinflammatories (Advil/ibuprofen, Aleve/naproxen) as these medications could make reflux worse. Only use oxycodone for severe pain. Do not take Xanax and oxycodone together. Take all medications as prescribed. Please note side effects in handouts provided. Follow-up with your primary care provider in one week. Follow-up with your oncologist/radiation oncologist as soon as possible. Please make sure they are aware of the compression fracture in your back. If you develop recurrent back pain, talk to your primary care provider about obtaining a brace for your back. Talk your doctor about an alternate medication from Ozempic for your diabetes. Return to the emergency department if you develop chest pain, shortness of breath, persistent fever >100.4, confusion, loss of consciousness, inability to tolerate foods/liquids, Patient Instructions: Antibiotic Form, Sucralfate (By mouth), Oxycodone, Rapid Release (By mouth), Pantoprazole (By mouth), Esophagitis (DC) Patient Language: [place] Stand Alone Forms: General Discharge Information Follow-up/Referrals: Rocio,MD Charlette [Primary Care Provider, Unknown] Meño Carroll MD [Physician, Gastroenterology] - Call for Appointment Referral Note: Call office for biopsy results from procedure if you do not hear from them in 7 days Discharge Medications: New pantoprazole 40 mg tablet,delayed release (DR/EC) 40 mg PO BID 30 Days Qty: 60 0RF sucralfate [Carafate] 1 gram tablet 1 g PO ACHS 30 Days Qty: 120 0RF lidocaine HCl [Lidocaine Viscous] 2 % solution 15 ml PO QID PRN (Reason: throat pain) Qty: 600 0RF Rx Instructions: Swallow 15 mL every six hours as needed for throat pain oxycodone 5 mg/5 mL solution 5 mg PO Q6H PRN (Reason: pain) 3 Days Qty: 60 0RF Continued metformin 500 mg tablet extended release 24 hr 500 mg PO DAILY glimepiride 2 mg tablet 2 mg PO QPM albuterol sulfate 90 mcg/actuation HFA aerosol inhaler 2 puff INHALATION QID PRN (Reason: shortness of breath or wheezing) Qty: 6.7 0RF Patient Comments: ... gabapentin 600 mg tablet 600 mg PO BID dapagliflozin propanediol [Farxiga] 10 mg tablet 10 mg PO DAILY Patient Comments: . Ozempic 1 mg/dose (4 mg/3 mL) pen injector 1 mg SUBCUT WEEKLY Patient Comments: takes on saturday alprazolam 0.5 mg tablet 0.5 mg PO BID PRN (Reason: anxiety) Date of admission: 06/14/25 13:12 Primary Care Provider: Rocio,Charlette Admitting Provider: Philippe Muñiz Attending physician on admission: Philippe Muñiz Condition: Stable
[2025-06-16 13:36] VITALS: BP 123/79; PULSE 105; RESP 18; TEMP 36.6; O2SAT 99
--- NOTE | 2025-06-16 16:55 | P.PNGI_ITS ---
Progress Note: A&P Assessment and Plan (1) Radiation-induced esophagitis: Code(s): K20.80 - Other esophagitis without bleeding Status: Acute Assessment and Plan: s/p bx he is going home with medical treatment- ppi bid, carafate and gi cocktail to take as needed will follow-up with his oncologist (2) Odynophagia: Code(s): R13.10 - Dysphagia, unspecified Status: Acute (3) Weight loss: Code(s): R63.4 - Abnormal weight loss Status: Acute (4) Non-small cell lung cancer: Code(s): C34.90 - Malignant neoplasm of unspecified part of unspecified bronchus or lung Status: Acute Subjective Date/time seen: 06/16/25 11:55 Interval history: egd c/w radiation esophagitis, better with medical treatment and gi cocktail Review of Systems Review of Systems: All systems reviewed & are unremarkable except as noted in HPI and below Exam Const: General: comfortable and no acute distress HENMT: Face/Nose/Sinus: Normal nares present Eyes: General: appearance normal, both eyes and all related structures Neck: Neck: no JVD Resp: Auscultation: clear to auscultation bilaterally Cardio: Rate: regular rate Rhythm: regular rhythm GI: Inspection: non-distended GI Palp: Yes Soft to palpation Skin: General skin exam: normal color Neuro: Speech: normal speech Extrem: General: normal to inspection Psych: Mental Status: mental status grossly normal Objective Data Vital Signs Vital Signs: Vital Signs - 24 hr 06/15/25 19:45 06/15/25 20:11 06/16/25 04:21 Temperature 98.0 F 97.4 F L Pulse Rate 91 108 H 109 H Respiratory Rate 14 20 20 Blood Pressure 138/83 118/69 Pulse Oximetry 99 98 95 Oxygen Delivery Room Air 06/16/25 08:50 06/16/25 13:36 Temperature 97.8 F Pulse Rate 105 H Respiratory Rate 18 Blood Pressure 123/79 Pulse Oximetry 99 Oxygen Delivery Room Air Intake/Output Intake/Output: Intake & Output 06/13/25 06/14/25 06/15/25 06/16/25 23:59 23:59 23:59 23:59 Intake Total 2780 2740.0 1020 Balance 2780 2740.0 1020 Meds/Results Radiology Results: ITS Impressions Chest X-Ray 06/14/25 10:41 Impression: Small right lower lobe pneumonia Chest CTA 06/14/25 11:10 IMPRESSION: 1. No pulmonary embolus. 2. Stable right hilar and mediastinal lymphadenopathy, consistent with metastatic disease. 3. Moderate emphysema. Right lower lobectomy. 4. T12 compression fracture, new from 03/04/2025, likely acute or subacute. Labs Labs: Laboratory Results - last 24 hr 06/15/25 06/15/25 06/15/25 17:01 17:29 19:57 WBC RBC Hgb Hct MCV MCH MCHC RDW Plt Count MPV Immature Gran % (Auto) Neut % (Auto) Lymph % (Auto) [place] % (Auto) Eos % (Auto) Baso % (Auto) Lymph # (Auto) [place] # (Auto) Eos # (Auto) Baso # (Auto) Abs Immat Gran (auto) Absolute Neuts (auto) Absolute Nucleated RBC Nucleated RBC % % Immature Plt Fraction Sodium Potassium Chloride Carbon Dioxide Anion Gap BUN Creatinine Estim Creat Clear Calc Estimated GFR Glucose POC Capillary Glucose 106 H 146 H Calcium Total Bilirubin AST ALT Alkaline Phosphatase Total Protein Albumin Influenza A (RT-PCR) Negative Influenza B (RT-PCR) Negative RSV (RT-PCR) Negative SARS-CoV-2 RNA (RT-PCR) Negative 06/16/25 06/16/25 06/16/25 04:12 07:56 11:43 WBC 4.1 L RBC 4.17 L Hgb 11.7 L Hct 34.6 L MCV 83.0 MCH 28.1 MCHC 33.8 RDW 15.7 H Plt Count 109 L MPV 7.9 Immature Gran % (Auto) 0.5 Neut % (Auto) 71.4 Lymph % (Auto) 10.6 L [place] % (Auto) 15.3 H Eos % (Auto) 1.7 Baso % (Auto) 0.5 Lymph # (Auto) 0.43 L [place] # (Auto) 0.6 Eos # (Auto) 0.1 Baso # (Auto) 0.0 Abs Immat Gran (auto) 0.02 Absolute Neuts (auto) 2.9 Absolute Nucleated RBC 0.000 Nucleated RBC % 0.0 % Immature Plt Fraction 0.4 L Sodium 134 L Potassium 4.2 Chloride 101 Carbon Dioxide 28 Anion Gap 5 BUN 11 Creatinine 0.77 Estim Creat Clear Calc 106 Estimated GFR > 60 Glucose 112 H POC Capillary Glucose 144 H 174 H Calcium 8.1 L Total Bilirubin 0.6 AST 18 ALT 11 Alkaline Phosphatase 78 Total Protein 6.0 L Albumin 3.3 L Influenza A (RT-PCR) Influenza B (RT-PCR) RSV (RT-PCR) SARS-CoV-2 RNA (RT-PCR)
--- NOTE | 2025-06-21 07:57 | PC.NURSE ---
blood cx shows no growth.
== END 2025-06-16 14:10 | disposition home or self-care (01) ==
LOC: ANHED 09:45 → ANH2MED 14:29
PROVIDERS: General Practice; Internal Medicine Gastroenterology; Physician Assistant; Admitting Provider Internal Medicine; Emergency Provider General Practice; PCP Internal Medicine; Visit Provider Family Medicine
PROC: 0DJ08ZZ Inspection of Upper Intestinal Tract, Via Natural or Artificial Opening Endoscopic (ICD-10-PCS; CPT 43239; principal; 2025-06-15 15:30)
DX: K20.80 Other esophagitis without bleeding (principal); K29.50 Unspecified chronic gastritis without bleeding; J18.9 Pneumonia, unspecified organism; E86.1 Hypovolemia; E86.0 Dehydration; C34.91 Malignant neoplasm of unspecified part of right bronchus or lung; R59.0 Localized enlarged lymph nodes; R63.4 Abnormal weight loss; S22.080A Wedge compression fracture of T11-T12 vertebra, initial encounter for closed fracture; I10 Essential (primary) hypertension; E11.9 Type 2 diabetes mellitus without complications; Z79.85 Long-term (current) use of injectable non-insulin antidiabetic drugs; Z79.84 Long term (current) use of oral hypoglycemic drugs; G47.33 Obstructive sleep apnea (adult) (pediatric); J45.909 Unspecified asthma, uncomplicated; Z79.69 Long term (current) use of other immunomodulators and immunosuppressants; Z87.891 Personal history of nicotine dependence; Z90.2 Acquired absence of lung [part of]; Z20.822 Contact with and (suspected) exposure to COVID-19
CPT/HCPCS: 43239; 36415; 71045; 71275; 80047; 80053; 82948; 83605; 83690; 83735; 84484; 85025; 85055; 85610; 85730; 87040; 87637; 88305; 93005; 94640; 96361; 96374; 96375; 99285; A9270; G0378; J0456; J0696; J1171; J2003; J2405; J2470; J2704; J7030; J7050; J7120; Q9967

== ENCOUNTER 2025-07-13 10:29 | Outpatient (CLI) | payer BC, SELFPAY ==
--- OUTSIDE RECORDS SUMMARY | 2025-07-12 09:00 | XMS_ITS | Encounter Summary ---
Author Organization [facility] [employer] [facility] Address [address] [place] [address] Care Team Providers Care Core Driller Name Role Phone Charlette Chan MD Primary Care Provider Reason for Referral * CT Scan (Urgent) - Pending Review Specialty Diagnoses / Procedures Referred By Contac t Referred To Contact Diagnoses Malignant neoplasm of lower lobe of right lung (CMS/HCC) Procedures CT CHEST ABDOMEN PELVIS W CONT Matt Mcclelland MD [address] [place] [address] Phone: tel: fax: [place] [phone] Referral ID Status Reason Start Date Expiration Date Visits Requested Visits Authorized [id number] Pending Review STL CTS 07/12/2025 08/12/2026 1 1 ICAL EDUCATOR Reason for Visit * Reason Comments Cancer Follow Up Encounter Details Date Type Department Care Team (Late st Contact Info) Description 07/12/2025 9:00 AM CLINICAL EDUCATOR Office Visit [facility] Oncology and Hematology [facility] [address] [facility] [address] [place] [address] Matt Mcclelland MD [address] [place] [address] Malignant neoplasm of lower lobe of right lung (CMS/HCC) (Primary Dx) Social History Tobacco Use Types [...] on file Legal Sex Male 8:18 AM CLINICAL EDUCATOR Gender Identity Not on file Sexual Orientation Not on file documented as of this encounter Last Filed Vital Signs Vital Sign Reading Time Taken Comments Blood Pressure 111/78 07/12/2025 9:16 AM CLINICAL EDUCATOR Pulse 128 07/12/2025 9:16 AM CLINICAL EDUCATOR Temperature 36.6 C (97.9 F) 07/12/2025 9:16 AM CLINICAL EDUCATOR Respiratory Rate 16 07/12/2025 9:16 AM CLINICAL EDUCATOR Oxygen Saturation 95% 07/12/2025 9:16 AM CLINICAL EDUCATOR Inhaled Oxygen Concentration - - Weight 90.6 kg (199 lb 12.8 oz) 07/12/2025 9:16 AM CLINICAL EDUCATOR Height - - Body Mass Index 28.67 04/05/2025 10:05 AM CDT documented in this encounter Progress Notes * Matt Mcclelland MD - 07/12/2025 9:36 AM CST HEMATOLOGY / ONCOLOGY PROGRESS NOTE Patient Identification: Name: Anthony Bonilla Age: 54 y.o. Sex: male : 1970 DIAGNOSIS T3 N0 M0 stage IIB non-small cell lung cancer status post bronchoscopy and biopsy done on July 24, 2022 showed squamous cell carcinoma involving the right lower lobe mass. No tumor was seen on thespecimen. CURRENT TREATMENT Concurrent chemoradiation therapy with weekly carboplatin and Taxol started on May 17, 2025. TREATMENT HISTORY Right lower lobe lobectomy done on October 18, 2022. Patient had bronchoscopy with endobronchial biopsy of the lung mass and lymphadenopathy done on April 05, 2025 came back positive for squamous cell carcinoma. EBUS and biopsy results from April 05, 2025 reviewed that showed squamous cell carcinoma. SUBJECTIVE Patient came to the office for follow-up visit. He denies any chest pain or shortness of breath. Hehas gained 5 pound weight. Denies any other new complaints. Review of system Constitutional: Patient did not mention fevers, sweats, denies any tiredness and fatigue, 5 pound weight gain HEENT: Patient did not mention sinus congestion, hearing or vision problems Respiratory: Denies any cough and shortness of breath Cardiovascular: Patient did not mention chest pain, exertional chest pressure/discomfort, nausea, syncope, shortness of breath,, GI: Patient did not mention constipation, diarrhea, reflux symptoms, vomiting, melena, improvement in dysphagia : Patient did not mention dysuria, frequency, incontinence, urgency Integumentary system: no lymphadenopathy, sweats, flushing Musculoskeletal: Patient not mention: myalgia, arthralgia, Neurological: Patient did not mention blurry or [...] hemoglobin 14.9 platelet 1 82,000 creatinine 1.4 Labs from May 24 showed creatinine 0.9 WBC 8 hemoglobin 14.6 platelet 157,000 Labs from June 14 showed WBC 5.1 hemoglobin 15.1 platelet 112,000 creatinine 1.1 Labs from June 21 showed creatinine 1.0 WBC 5.8 hemoglobin 12.8 platelet 101,000 Labs from July 07 showed creatinine 0.9 WBC 4.1 hemoglobin 11.6 platelet 149,000 Assessment: Plan: Patient Active Problem List Diagnosis Date Noted Lung mass 04/05/2025 Benign hypertension 09/12/2022 Cancer of lower lobe of right lung (CMS/HCC) 09/12/2022 Type 2 diabetes mellitus without complication, with long-term current use of insulin (CMS/HCC) 09/12/2022 T3 N0 M0 stage IIB non-small [...] other metastatic disease in abdomen and pelvis. Patient had EBUS and biopsy of the lymph node section 7 and section 10 done that came back positivefor metastatic squamous cell carcinoma. Lung bronchus intermedius biopsy also showed squamous cell carcinoma. Patient started concurrent chemoradiation therapy with weekly carboplatin and Taxol on May 17, 2025. Patient received 25 radiation therapy treatment in the last 4 was not completed due to patient admission to the hospital with radiation esophagitis and scheduling difficulties. Patient decided not toproceed with any further radiation treatments. He received weekly treatment x 6 with chemotherapy on June 28. We will order CT scan chest abdomen and pelvis now and discussed that next week and then plan to every 3 weeks basis chemotherapy cycles after that. He will start maintenance treatment with durvalumab after completion of chemotherapy. Phone visit in 1 week. Radiation esophagitis. Improving. Continue PPI with Carafate. Anxiety. Continue Xanax. 07/12/2025 Matt Mcclelland MD ICAL EDUCATOR documented in this encounter Plan of Treatment Upcoming Encounters Date Type Department Care Team (Late st Contact Info) Description 07/19/2025 4:30 PM CLINICAL EDUCATOR Telephone Check Up [facility] Oncology and Hematology [facility] [address] [facility] [address] [place] [address] Matt Mcclelland MD [address] [facility] [address] [place] [address] Scheduled Orders Name Type Priority Associated Diagnoses Orde r Schedule CT CHEST ABDOMEN PELVIS W CONT Imaging Stat Malignant neoplasm of lower lobe of right lung (CMS/HCC) Expected: 07/13/2025, Expires: 07/12/2026 documented as of this encounter Visit Diagnoses Diagnosis Malignant neoplasm of lower lobe of right lung (CMS/HCC)- Primary documented in this encounter Care Teams Core Driller Relationship Specialty Start Date End Date Charlette Chan MD PCP - General Internal Medicine 08/28/22 documented as of this encounter
--- NOTE | ~2025-07-13 | CT_ITS ---
CHEST ABDOMEN PELVIS WITH CONTRAST CLINICAL HISTORY: MAL DEANNA OF LOWER LOBE OF RIGHT LUNG . COMPARISON: CTA chest 06/14/2025 PET/CT 03/16/2025 TECHNIQUE: Helical CT performed from thoracic inlet to symphysis pubis IV contrast information not listed in PACS Coronal, sagittal reformats. Multi planar MIPS CT images acquired with automatic exposure control for dose reduction DLP: 1563 mGy-cm FINDINGS: CHEST- Lungs/Pleura: Right lower lobe resection. Right perihilar and infrahilar soft tissue foci as before. Emphysema. Small chronic right pleural effusion. Thoracic Aorta: No dissection. No aneurysm. Pulmonary arteries: Normal caliber. Heart: Trace pericardial fluid. Tracheobronchial tree: Patent. Nodes: Enlarged subcarinal node as before. Bones: No acute bony abnormality. Superior endplate T12 fracture as before. Soft tissues: Unremarkable. ABDOMEN/PELVIS- Liver: Early cirrhosis suspected. Gallbladder: Unremarkable. Spleen: Unremarkable. Pancreas: Unremarkable. Adrenal glands: Unremarkable. Kidneys: Right kidney- No hydronephrosis. No renal stones. Left kidney- No hydronephrosis. No renal stones. Distal esophagus/stomach: Mild distal esophageal wall thickening. Small bowel loops: Normal caliber and wall thickness. Colon: Normal caliber and wall thickness. Normal RLQ appendix. Nodes: No enlarged nodes. Peritoneum: No ascites. No free air. Urinary bladder: Unremarkable. Prostate: Unremarkable. Trace pelvic free fluid. Bones: No acute bony abnormality. Soft tissues: Unremarkable. Aorta: No aneurysm or dissection. Atherosclerotic disease. IVC: Unremarkable. Main portal vein/SMV/splenic vein: Patent. IMPRESSION: CHEST- 1. No acute abnormality or significant change from one month prior. 2. Right perihilar and mediastinal masses not significantly changed. ABDOMEN/PELVIS- 1. No evidence of malignancy or acute abnormality. Reviewed, dictated and finalized at location R. FACER
--- OUTSIDE RECORDS SUMMARY | 2025-07-13 11:53 | XMS_ITS | Encounter Summary ---
Author Organization [facility] [email or web address] [facility] Address [address] [place] [address] Care Team Providers Care Employment Recruiter Name Role Phone Charlette Chan MD Primary Care Provider Encounter Details Date Type Department Care Team (Late Contact Info) Description 07/12/2025 Orders Only [facility] Oncology and Hematology - [place] [address] [facility] [address] [place] [address] Matt Mcclelland MD [address] [facility] [address] [place] [address] Social History Tobacco Use Types Packs/Day Years [...] on file Legal Sex Male 8:18 AM CORPORATE PARALEGAL Gender Identity Not on file Sexual Orientation Not on file documented as of this encounter Plan of Treatment Upcoming Encounters Date Type Department Care Team (Late st Contact Info) Description 07/19/2025 4:30 PM CORPORATE PARALEGAL Telephone Check Up [facility] Oncology and Hematology - [place] [address] [place] [address] [place] [address] Matt Mcclelland MD [address] [facility] [address] [place] [address] documented as of this encounter Procedures Procedure Name Priority Date/Time Associated Diagnosis Comments COMPREHENSIVE METABOLIC PANEL Routine 07/12/2025 4:27 PM CORPORATE PARALEGAL CBC WITH AUTODIFFERENTIAL Routine 2024 4:08 PM CORPORATE PARALEGAL documented in this encounter Results * COMPREHENSIVE METABOLIC PANEL (07/12/2025 4:27 PM CORPORATE PARALEGAL) Blood us Matt Mcclelland MD CHEMISTRY ORDERABLES Final Resu lt * CBC WITH AUTODIFFERENTIAL (07/12/2025 4:08 PM CORPORATE PARALEGAL) Blood us Matt Mcclelland MD HEMATOLOGY ORDERABLES Final Res ult documented in this encounter Visit Diagnoses Not on filedocumented in this encounter Care Teams Employment Recruiter Relationship Specialty Start Date End Date Charlette Chan MD PCP - General Internal Medicine 08/28/22 documented as of this encounter
--- OUTSIDE RECORDS SUMMARY | 2025-07-13 11:54 | XMS_ITS | Clinical Summary ---
Author Organization [facility] [place] Address [address] [place] [address] Care Team Providers Care Road Conductor Name Role Phone Charlette Chan MD Primary [...] 117, only take one tablet 07/17/2022 Active lidocaine-prilo kathy (EMLA) 2.5-2.5 % Cream Apply a quarter size amount to port site 30 minutes before access. 30 Gram 1 05/13/2025 Active ondansetron (ZOFRAN ODT) 8 mg Tablet, Rapid Dissolve Dissolve 1 tablet on top of tongue then swallow with saliva every 8 hours as needed for nausea or vomiting 30 Tablet 1 05/13/2025 Active ALPRAZolam (Xanax) 0.5 mg tabletIndicatio ns:Malignant neoplasm of lower lobe of right lung (CMS/HCC) Take 1 Tablet (0.5 mg) by mouth 2 times daily. 60 Tablet 1 05/24/2025 Active methylPREDNISol one (MEDROL DOSPACK) 4 mg Tablets, Dose Pack Use as directed 21 Tablet 05/24/2025 Active sucralfate (Carafate) 100 mg/mL suspension Take 10 mL (1 Gram) by mouth every 6 hours. 414 mL 1 06/14/2025 Active oxyCODONE (ROXICODONE) 5 mg/5 mL solution Take 5 mg by mouth every 4 hours as needed for Pain, Moderate. Active pantoprazole (PROTONIX) 40 mg Tablet, Delayed Release (E.C.) Take 40 mg by mouth 2 times daily. Active Active Problems Problem Noted Date Diagnosed Date Lung mass 04/05/2025 Benign hypertension 09/12/2022 Cancer of lower lobe of right lung 09/12/2022 Type 2 diabetes mellitus wit hout complication, with long-term current use of insulin 09/12/2022 Encounters Date Type Department Care Team Description 07/12/2025 9:00 AM STATEMENT REQUEST CLERK Office Visit [facility] Oncology and Hematology - [place] [address] [place] [address] Matt Mcclelland MD Malignant neoplasm of lower lobe of right lung (CMS/HCC) (Primary Dx) 07/12/2025 Orders Only [facility] Oncology and Hematology - [place] [address] [place] [address] Matt Mcclelland MD 07/05/2025 Orders Only [facility] Oncology and Hematology - Fan [address] [place] [address] Matt Mcclelland MD Hilar mass; Benign hypertension 06/29/2025 Orders Only [facility] Oncology and Hematology - [place] [address] [place] [address] [place] [address] Matt Mcclelland MD 06/23/2025 Orders Only [facility] Oncology and Hematology - [address] [place] [address] Matt Mcclelland MD 06/21/2025 9:45 AM STATEMENT REQUEST CLERK Office Visit [facility] Oncology and Hematology - [place] [address] [place] [address] Matt Mcclelland MD Hilar mass; Benign hypertension 06/21/2025 Abstract [facility] Oncology and Hematology - [place] [address] [place] [address] Matt Mcclelland MD 06/21/2025 Abstract [facility] Oncology and Hematology - [place] [address] [place] [address] Matt Mcclelland MD 06/15/2025 Orders Only [facility] Oncology and Hematology - [place] [address] [place] [address] Matt Mcclelland MD 06/14/2025 9:30 AM CDT Office Visit [facility] Oncology and Hematology - [place] [address] [place] [address] Matt Mcclelland MD Malignant neoplasm of lower lobe of right lung (CMS/HCC) (Primary Dx) 06/08/2025 Orders Only [facility] Oncology and Hematology - [place] [address] [place] [address] Matt Mcclelland MD 06/07/2025 Orders Only [facility] Oncology and Hematology - [address] [place] [address] Matt Mcclelland MD Hilar mass; Benign hypertension 06/04/2025 Chart Note [facility] Oncology Patient Navigation [address] [place] [address] Elis Russo, RN Nurse Navigation (Follow up) 05/31/2025 Orders Only [facility] Oncology and Hematology - [place] [address] [place] [address] Matt Mcclelland MD 05/25/2025 Abstract [facility] Oncology [facility] [address] [place] [address] Matt Mcclelland MD 05/24/2025 9:00 AM CDT Office Visit [facility] Oncology [facility] [address] Matt Mcclelland MD Malignant neoplasm of lower lobe of right lung (CMS/HCC) (Primary Dx); Hilar mass 05/24/2025 Orders Only [facility] Oncology [facility] [address] [place] [address] Matt Mcclelland MD Benign hypertension (Primary Dx) 05/21/2025 Chart Note [facility] Oncology Patient Navigation [address] [place] [address] Elis Russo, RN Nurse Navigation (Follow up) 05/18/2025 Orders Only [facility] Oncology [facility] [address] [place] [address] Matt Mcclelland MD Anxiety state (Primary Dx) 05/14/2025 Orders Only [facility] [address] [place] [address] Matt Mcclelland MD Hilar mass (Primary Dx) 05/13/2025 Refill [facility] Oncology [facility] [address] [place] [address] Matt Mcclelland MD 05/05/2025 Chart Note [facility] Oncology Patient Navigation [address] [place] [address] Elis Russo, RN Nurse Navigation (Follow up) 04/21/2025 Orders Only [facility] Radiation Therapy [address] [place] [address] Esteban Vail MD Claustrophobia (Primary Dx) 04/20/2025 External Device Data STL ABSTRACTION Provider, Abstract 04/20/2025 External Device Data STL ABSTRACTION Provider, Abstract 04/20/2025 Abstract [facility] Oncology and Hematology - [place] [address] [place] [address] Matt Mcclelland MD 04/14/2025 Chart Note [facility] Oncology Patient Navigation [address] [place] [address] Elis Russo, RN Nurse Navigation (Follow up) from Last 3 Months Family History Medical [...] on file Legal Sex Male 8:18 AM STATEMENT REQUEST CLERK Gender Identity Not on file Sexual Orientation Not on file Last Filed Vital Signs Vital Sign Reading Time Taken Comments Blood Pressure 111/78 07/12/2025 9:16 AM STATEMENT REQUEST CLERK Pulse 128 07/12/2025 9:16 AM STATEMENT REQUEST CLERK Temperature 36.6 C (97.9 F) 07/12/2025 9:16 AM STATEMENT REQUEST CLERK Respiratory Rate 16 07/12/2025 9:16 AM STATEMENT REQUEST CLERK Oxygen Saturation 95% 07/12/2025 9:16 AM STATEMENT REQUEST CLERK Inhaled Oxygen Concentration - - Weight 90.6 kg (199 lb 12.8 oz) 07/12/2025 9:16 AM STATEMENT REQUEST CLERK Height 177.8 cm (5' 10) 04/05/2025 10: 05 AM CDT Body Mass Index 28.67 04/05/2025 10:05 AM CDT Plan of Treatment Upcoming Encounters Date Type Department Care Team (Late st Contact Info) Description 07/19/2025 4:30 PM STATEMENT REQUEST CLERK Telephone Check Up [facility] Oncology and Hematology - [place] [address] [facility] [address] [place] [address] Matt Mcclelland MD [address] [facility] [address] [place] [address] Health Maintenance Due Date Last [...] Visit- Commercial 08/19/2024 INFLUENZA VACCINE (#1) 2025 , 06/12/2022, 06/13/2021, Additional history exists ZOSTER VACCINE Completed 10/28/2023, 08/22/2023 Medical Devices Implanted Type Area Senior Etl Developer Device Identifier Shelf Expiration Date Model / Serial / Lot Clip Hemolok Ml [id number] - Csc - [id number] Implanted:Qty : 1 on 10/18/2022 by Winston Villalpando MD at [facility] Clip Right: Lung TELEFLEX- WECK CLOSURE SYS 06/18/2026 [id number] / / [id number] Sealant Progel Pleural 4ml [id number] - [id number] Implanted:Qty : 1 on 10/18/2022 by Winston Villalpando MD at [facility] Tissue Right: Lung BARD DAVOL [id number] 12/04/2023 [id number] / / [id number] Procedures Procedure Name Priority Date/Time Associated Diagnosis Comments COMPREHENSIVE METABOLIC PANEL Routine 07/12/2025 4:27 PM STATEMENT REQUEST CLERK CBC WITH AUTODIFFERENTIAL Routine 07/12/2025 4:08 PM STATEMENT REQUEST CLERK COMPREHENSIVE METABOLIC PANEL Routine 06/28/2025 2:58 PM STATEMENT REQUEST CLERK COMPREHENSIVE METABOLIC PANEL Routine 06/21/2025 12:21 PM STATEMENT REQUEST CLERK COMPREHENSIVE METABOLIC PANEL Routine 06/14/2025 8:04 AM CDT COMPREHENSIVE METABOLIC PANEL Routine 06/07/2025 1:40 PM CDT COMPREHENSIVE METABOLIC PANEL Routine 05/31/2025 1:50 PM CDT COMPREHENSIVE METABOLIC PANEL Routine 05/24/2025 12:53 PM CDT COMPREHENSIVE METABOLIC PANEL Routine 05/17/2025 10:34 AM CDT HEMOGLOBIN A1C Routine 10/01/2022 12:33 PM STATEMENT REQUEST CLERK Benign hypertension Cancer of lower lobe of right lung (CMS/HCC) Type 2 diabetes mellitus without complication, with long-term current use of insulin (CMS/HCC) from Last 3 Months or Most Recently Relevant to Health Maintenance Results * COMPREHENSIVE METABOLIC PANEL (07/12/2025 4:27 PM STATEMENT REQUEST CLERK) Only the most recent of8 resultswithin the time period is included. Blood us Matt Mcclelland MD CHEMISTRY ORDERABLES Final Resu lt * CBC WITH AUTODIFFERENTIAL (07/12/2025 4:08 PM STATEMENT REQUEST CLERK) Blood us Matt Mcclelland MD HEMATOLOGY ORDERABLES Final Res ult * (ABNORMAL) HEMOGLOBIN A1C (10/01/2022 12:33 PM STATEMENT REQUEST CLERK) HEMOGLOBIN A1C 6.8(H) <5.7 % 10/01/2022 2:13 PM STATEMENT REQUEST CLERK [facility] EST. AVG GLUCOSE, A1C 148 mg/dL 10/01/2022 2:13 PM STATEMENT REQUEST CLERK [facility] Blood Venipuncture / Unknown 10/01/2022 12:33 PM STATEMENT REQUEST CLERK 10/01/2022 1:45 PM STATEMENT REQUEST CLERK Narrative [facility] - 10/01/2022 2:13 PM STATEMENT REQUEST CLERK HGB A1C INTERPRETATION NORMAL: <5.7% PRE-DIABETES: 5.7 - 6.4% DIABETES: 6.5% OR GREATER Winston Villalpando MD CHEMISTRY ORDERABLES Final Res ult [facility] CLIA# [id number] [address] [place] [address] from Last 3 Months or Most Recently [...] Advance Directives For more information, please contact: [phone] * Full Code (Latest Code Status on File) Date Activated Date Inactivated Comments 10/18/2022 5:47 PM 10/21/2022 7:26 PM * Full Code Date Activated Date Inactivated Comments 10/18/2022 5:47 AM 10/18/2022 5:[address] Conductor Relationship Specialty Start Date End Date Charlette Chan MD PCP - General Internal Medicine 08/28/22
--- OUTSIDE RECORDS SUMMARY | 2025-07-13 11:54 | XMS_ITS | Clinical Summary ---
Author Organization [facility] Address [address] [place] [address] Care Team Providers Care Supervisor Hard Candy Name Role Phone Unavailable Primary Care Provider [...]
--- OUTSIDE RECORDS SUMMARY | 2025-07-13 11:54 | XMS_ITS ---
Author Organization [facility] Address [address] [place] [address] Care Team Providers Care Tractor Mechanic Helper Name Role Phone Magda [place] MD Primary Care Provide r Uriel Black MD Unavailable [phone] Active Problems Problem Noted Date Diagnosed [...]
--- OUTSIDE RECORDS SUMMARY | 2025-07-13 11:54 | XMS_ITS | Clinical Summary ---
Author Organization [facility] Address [address] [place] [address] Care Team Providers Care Ocularist Name Role Phone Magda [place] MD Primary Care Provide r Uriel Black MD Unavailable [phone] Allergies No known active allergies Medications [...] fluticasone propionate (FLONASE) 50 mcg/actuation nasal spray [place] 2 sprays every day by intranasal route [...] on file Legal Sex Male 11:08 AM QUALITY LIAISON Gender Identity Not on file Sexual Orientation Not on file Last Filed Vital Signs Vital Sign Reading Time Taken Comments Blood Pressure 122/58 09/22/2024 3:25 PM QUALITY LIAISON Pulse 103 09/22/2024 3:25 PM QUALITY LIAISON Temperature 36.7 C (98.1 F) 08/06/2022 11:23 AM QUALITY LIAISON Respiratory Rate 18 08/06/2022 11:23 AM QUALITY LIAISON Oxygen Saturation 96% 08/06/2022 11:23 AM QUALITY LIAISON Inhaled Oxygen Concentration - - Weight 95.3 kg (210 lb) 09/22/2024 3:25 PM QUALITY LIAISON Height 172.7 cm (5' 8) 08/06/2022 11:23 AM QUALITY LIAISON Body Mass Index 31.93 08/06/2022 11:23 AM QUALITY LIAISON Plan of Treatment Health Maintenance Due Date [...] exists Zoster Vaccine Completed 10/28/2023, 08/22/2023 Insurance [facility] CHOICE PLUS BLUE ACCESS OOS Care Teams Ocularist Relationship Specialty Start Date End Date Magda Chan MD [address] [place] [address] PCP - General Internal Medicine 06/13/22 Uriel Black MD [address] [place] [address] Radiation Oncologist Radiation Oncology 09/13/22
== END 2025-07-13 10:30 | disposition home or self-care (01) ==
PROVIDERS: PCP Internal Medicine; Visit Provider Internal Medicine Hematology & Oncology
DX: C34.31 Malignant neoplasm of lower lobe, right bronchus or lung (principal)
CPT/HCPCS: 71260; 74177; Q9967